=== PATIENT | male | born 1940 | race Caucasian/White ===

== ENCOUNTER 2016-08-18 02:11 | Inpatient (IN) | payer OTHER, MEDICARE ==
[2016-08-18] VITALS (8 sets, daily range): BP systolic 99–123; BP diastolic 53–66; PULSE 94–117; RESP 18–20; TEMP 96.4–98.5; O2SAT 95–98
[~2016-08-18] VITALS: Ht 170.2 cm; Wt 95.3 kg
[~2016-08-18 02:11] MED LIST: ALBU6.7H INH; ASPI81 PO; GLUCTAB; LISI-363 PO; SIMV5TAB32 PO
[2016-08-18] MEDS ORDERED: GUAI600T11 PO (02:36)
[2016-08-18] MEDS ORDERED: SYMB160A INH (02:36)
[2016-08-18] MEDS ORDERED: LISI2.5T3 PO (02:36)
[2016-08-18] MEDS ORDERED: IPRAAER INH (02:36)
[2016-08-18] MEDS ORDERED: SIMV5TAB3 PO (02:36)
[2016-08-18] MEDS ORDERED: ALBU6.7H INH (02:36)
[2016-08-18] MEDS ORDERED: ASPI81CH CHEW (02:36)
[2016-08-18] MEDS ORDERED: SODIUM CHLOR 0.9% 1000 ML INJ 1,000 ML IV ONE ×2 (02:59→04:00)
[2016-08-18] MEDS ORDERED: SODIUM CHLORIDE 0.9% FLUSH 10 ML FLUSH IVF PRN (03:00)
[2016-08-18 03:29] LABS: AUTOMATED NEUTROPHIL # 17.9 TH/MM3 (1.8-7.7); BASOPHIL # 0.1 TH/MM3 (0-0.2); BASOPHIL % 0.3 % (0.0-2.0); EOSINOPHIL % 0.2 % (0.0-4.0); HEMATOCRIT 34.9 % (39.0-51.0); LYMPH % 3.1 % (9.0-44.0); LYMPHOCYTE # 0.6 TH/MM3 (1.0-4.8); MEAN CELL VOLUME 89.2 FL (80.0-100.0); MEAN CORPUSCULAR HEMOGLOBIN 29.9 PG (27.0-34.0); MEAN CORPUSCULAR HGB CONC 33.5 % (32.0-36.0); MONO % 7.8 % (0.0-8.0); NEUT % 88.6 % (16.0-70.0); PLATELET COUNT 178 TH/MM3 (150-450); RED BLOOD COUNT 3.91 MIL/MM3 (4.50-5.90); RED CELL DISTRIBUTION WIDTH 14.4 % (11.6-17.2); WHITE BLOOD COUNT 20.3 TH/MM3 (4.0-11.0)
--- NOTE | 2016-08-18 03:33 | RADRPT ---
EXAM DATE/TIME: 08/18/2016 03:21 [facility] COMPARISON: CHEST SINGLE AP, February 23, 2011, 10:09. INDICATIONS : Shortness of breath for a few hours. MEDICAL HISTORY : Chronic obstructive pulmonary disease. SURGICAL HISTORY : None. ENCOUNTER: Initial ACUITY: 1 day PAIN SCORE: 0/10 LOCATION: Bilateral chest FINDINGS: There is evidence for prior median sternotomy. Extensive COPD is present no change. Vague parenchymal opacities present in left upper lobe medially not present previously. Heart and mediastinum are unre markable for technique. There are atherosclerotic calcifications of the aorta due to chronic atherosc lerotic disease. CONCLUSION: Vague parenchymal opacity left upper lobe not present previously represent slight infiltrate. Davy Potter MD on August 18, 2016 at 3:30 Board Certified Radiologist. This report was verified electronically.
[2016-08-18 03:36] LABS: HEMO FLAGS AUTO DIFF
--- NOTE | 2016-08-18 03:40 | RADRPT ---
EXAM DATE/TIME: 08/18/2016 03:26 [facility] COMPARISON: No previous studies available for comparison. INDICATIONS : Syncopal episode. RADIATION DOSE: 33.36 CTDIvol (mGy) MEDICAL HISTORY : Hypertension. Diabetes mellitus type 2. Cardiovascular disease SURGICAL HISTORY : None. ENCOUNTER: Initial ACUITY: 1 day PAIN SCALE: 0/10 LOCATION: cranial TECHNIQUE: Multiple contiguous axial images were obtained of the head. Using automated exposure control and adj ustment of the mA and/or kV according to patient size, radiation dose was kept as low as reasonably a chievable to obtain optimal diagnostic quality images. DICOM format image data is available electro nically for review and comparison. FINDINGS: There is no evidence for intracranial hemorrhage, mass effect, mass lesions, edema, or extra-axial fl uid collections. The visualized bony structures appear intact. The ventricles are normal size for t he patient's age. There are no signs of acute infarction for technique. CONCLUSION: Unremarkable study. Davy Potter MD on August 18, 2016 at 3:37 Board Certified Radiologist. This report was verified electronically.
[2016-08-18 03:41] LABS: APTT (PATIENT) 29.1 SEC (24.3-30.1)
[2016-08-18] MEDS ORDERED: cefTRIAXone INJ 1,000 MG in SODIUM CHLORIDE 0.9% INJ 100 ML IV ONE (04:00)
[2016-08-18] MEDS ORDERED: AZITHROMYCIN INJ 500 MG in SODIUM CHLOR 0.9% 250 ML INJ 250 ML IV ONE (04:00)
[2016-08-18 04:01] LABS: BICARBONATE 17.7 MEQ/L (21.0-32.0); MAGNESIUM 0.9 MG/DL (1.5-2.5); TOTAL BILIRUBIN ADULT 0.4 MG/DL (0.2-1.0)
[2016-08-18 04:03] LABS: CALCIUM-PROTEIN CORRECTED 6.7 MG/DL (8.5-10.1); POTASSIUM 2.7 MEQ/L (3.5-5.1)
[2016-08-18 04:20] LABS: BANDS 9 % (0-6); NEUTROPHIL # MANUAL DIFF 19.1 TH/MM3 (1.8-7.7); PLATELET ESTIMATE SMEAR NORMAL (NORMAL); PLATELET MORPHOLOGY NORMAL (NORMAL); POLYS (SEG NEUTROPHILS) 85 % (16-70); SCAN/DIFF FINAL DIFF MANUAL; WBC DIFF SAMPLE 100
[2016-08-18] MEDS ORDERED: POTASSIUM CHLORIDE 25 MEQ EFFERVESCENT TAB PO ONE ×2 (05:15→06:00)
[2016-08-18] MEDS ORDERED: POTASSIUM CHLOR 20 MEQ PREMIX 100 ML IV SCH ×2 (05:15→06:00)
--- NOTE | 2016-08-18 05:55 | PD ---
HPI Chief Complaint: Syncope/Near-Syncope Time Seen by Provider: 02:59 Travel History International Travel<30 days: No Contact w/Intl Traveler<30days: No Traveled to known affect area: No History of Present Illness HPI 75 year old male who presents to ER with c/o of syncope. As per patient, he reports having a bronchial infection this morning. Reports that symptoms improved over the day but by night time, he began to feel extremely weak. Reports that his son was going to bring him to the hospital and when he was going to the car - he had a syncopal episode. Reports that he was unconscious for a few seconds, denies any trauma to his head. Patient reports no fevers, reports chills. Patient reports nonproductive cough. Patient denies any chest pain, reports that he has been having some shortness of breath today. Patient with no abdominal pain, nausea or vomiting. Patient with no other complaints. PFSH Past Medical History High Cholesterol: Yes COPD: Yes Diabetes: Yes Patient Takes Glucophage: No Hypertension: Yes Immunizations Current: Yes Myocardial Infarction: Yes Past Surgical History Coronary Artery Bypass Graft: Yes Genitourinary Surgery: Yes (vasectomy) Tonsillectomy: Yes Other Surgery: Yes (VASECTOMY) Social History Alcohol Use: Yes (2 GLASS WINE/DAILY) Tobacco Use: No (QUIT 6 YEARS AGO) Substance Use: Yes (OCC MARIJUANA; STATES NOT LATELY) Allergies-Medications (Allergen,Severity, Reaction): Coded Allergies: No Known Allergies (Unverified , 08/18/16) Reported Meds & Prescriptions Reported Meds & Active Scripts Active Reported Simvastatin 5 Mg Tab 5 Mg PO DAILY Mucus Relief ER (Guaifenesin) 600 Mg Tab 1,200 Mg PO BID PRN Lisinopril 2.5 Mg Tab 2.5 Mg PO DAILY Aspirin 81 Mg Chew 81 Mg CHEW ONCE Combivent Respimat Inh (Ipratropium-Albuterol Inh) 20-100 Residential/Act Aero 1 Puff INH QID Symbicort Inh (Budesonide/Formoterol Fumarate) 160-4.5 Mcg/Act Aero 2 Puff INH Q12HR Proventil Hfa 6.7 GM Inh (Albuterol Sulfate) 90 Mcg/Act Aer 2 Puff INH Q4-6H PRN Review of Systems General / Constitutional: No: Fever Eyes: No: Visual changes HENT: No: Headaches Cardiovascular: No: Chest Pain or Discomfort Respiratory: Positive: Cough, Shortness of Breath Gastrointestinal: No: Abdominal Pain Genitourinary: No: Dysuria Musculoskeletal: No: Pain Skin: No Rash Neurologic: Positive: Syncope, No: Weakness Psychiatric: No: Depression Endocrine: No: Polydipsia Hematologic/Lymphatic: No: Easy Bruising Physical Exam Narrative GENERAL: Mild distress SKIN: Focused skin assessment warm/dry. HEAD: Atraumatic. Normocephalic. EYES: Pupils equal and round. No scleral icterus. No injection or drainage. ENT: No nasal bleeding or discharge. Mucous membranes pink and moist. NECK: Trachea midline. No JVD. CARDIOVASCULAR: Tachycardic. No murmur appreciated. RESPIRATORY: No accessory muscle use. Clear to auscultation. Breath sounds equal bilaterally. GASTROINTESTINAL: Abdomen soft, non-tender, nondistended. Hepatic and splenic margins not palpable. MUSCULOSKELETAL: No obvious deformities. No clubbing. No cyanosis. No edema. NEUROLOGICAL: Awake and alert. No obvious cranial nerve deficits. Motor grossly within normal limits. Normal speech. PSYCHIATRIC: Appropriate mood and affect; insight and judgment normal. Data Data Last Documented VS Vital Signs Date Time Temp Pulse Resp B/P Pulse Ox O2 Delivery O2 Flow Rate FiO2 08/18/16 02:49 99 Nasal Cannula 2 08/18/16 02:23 98.5 117 20 99/53 Orders Electrocardiogram (08/18/16 ) Complete Blood Count With Diff (08/18/16 02:59) Comprehensive Metabolic Panel (08/18/16 02:59) Magnesium (Mg) (08/18/16 02:59) Ckmb (Isoenzyme) Profile (08/18/16 02:59) Troponin I (08/18/16 02:59) Act Partial Throm Time (Ptt) (08/18/16 02:59) Prothrombin Time / Inr (Pt) (08/18/16 02:59) Urinalysis - C+S If Indicated (08/18/16 02:59) Chest, Single Ap (08/18/16 02:59) Ct Brain W/O Iv Contrast(Rout) (08/18/16 02:59) Ecg Monitoring (08/18/16 02:59) Iv Access Insert/Monitor (08/18/16 02:59) Oximetry (08/18/16 02:59) Sodium Chloride 0.9% Flush (Ns Flush) (08/18/16 03:00) Sodium Chlor 0.9% 1000 Ml Inj (Ns 1000 M (08/18/16 02:59) Lactic Acid Sepsis Protocol (08/18/16 02:59) Blood Culture (08/18/16 02:59) Ceftriaxone Inj (Rocephin Inj) (08/18/16 04:00) Azithromycin Inj (Zithromax Inj) (08/18/16 04:00) Sodium Chlor 0.9% 1000 Ml Inj (Ns 1000 M (08/18/16 04:00) Potassium Chlor 20 Meq Premix (Kcl 20 Me (08/18/16 05:15) Potassium Chloride Eff (K-Lyte Cl Eff) (08/18/16 05:15) Admit Order (Ed Use Only) (08/18/16 05:51) Admit To Inpatient (08/18/16 ) Vital Signs (Adult) Q4H (08/18/16 05:51) Activity Oob With Assistance (08/18/16 05:51) Data Governance Consultant / Telemetry .CONTINUOUS (08/18/16 05:51) Diet Heart Healthy (08/18/16 Breakfast) Sodium Chloride 0.9% Flush (Ns Flush) (08/18/16 06:00) Sodium Chloride 0.9% Flush (Ns Flush) (08/18/16 09:00) Comprehensive Metabolic Panel (08/19/16 06:00) Complete Blood Count With Diff (08/19/16 06:00) Pt Request For Service (08/18/16 05:51) Case Management Consult (08/18/16 05:51) Naloxone Inj (Narcan Inj) (08/18/16 06:00) Inpatient Certification (08/18/16 ) Labs Laboratory Tests Test 08/18/16 03:05 White Blood Count 20.3 TH/MM3 Red Blood Count 3.91 MIL/MM3 Hemoglobin 11.7 GM/DL Hematocrit 34.9 % Mean Corpuscular Volume 89.2 FL Mean Corpuscular Hemoglobin 29.9 PG Mean Corpuscular Hemoglobin 33.5 % Concent Red Cell Distribution Width 14.4 % Platelet Count 178 TH/MM3 Mean Platelet Volume 8.6 FL Neutrophils (%) (Auto) 88.6 % Lymphocytes (%) (Auto) 3.1 % Monocytes (%) (Auto) 7.8 % Eosinophils (%) (Auto) 0.2 % Basophils (%) (Auto) 0.3 % Neutrophils # (Auto) 17.9 TH/MM3 Lymphocytes # (Auto) 0.6 TH/MM3 Monocytes # (Auto) 1.6 TH/MM3 Eosinophils # (Auto) 0.0 TH/MM3 Basophils # (Auto) 0.1 TH/MM3 CBC Comment AUTO DIFF Differential Total Cells 100 Counted Neutrophils % (Manual) 85 % Band Neutrophils % 9 % Lymphocytes % 1 % Monocytes % 5 % Neutrophils # (Manual) 19.1 TH/MM3 Differential Comment FINAL DIFF MANUAL Platelet Estimate NORMAL Platelet Morphology Comment NORMAL Red Cell Morphology Comment NORMAL Prothrombin Time 11.0 SEC Prothromb Time International 1.0 RATIO Ratio Activated Partial 29.1 SEC Thromboplast Time Sodium Level 145 MEQ/L Potassium Level 2.7 MEQ/L Chloride Level 119 MEQ/L Carbon Dioxide Level 17.7 MEQ/L Anion Gap 8 MEQ/L Blood Urea Nitrogen 16 MG/DL Creatinine 0.85 MG/DL Estimat Glomerular Filtration 88 ML/MIN Rate Random Glucose 68 MG/DL Lactic Acid Level 1.6 mmol/L Calcium Level 5.2 MG/DL Protein Corrected Calcium 6.7 MG/DL Magnesium Level 0.9 MG/DL Total Bilirubin 0.4 MG/DL Aspartate Amino Transf 6 U/L (AST/SGOT) Alanine Aminotransferase 8 U/L (ALT/SGPT) Alkaline Phosphatase 40 U/L Total Creatine Kinase 50 U/L Troponin I 0.02 NG/ML Total Protein 3.7 GM/DL Albumin 1.9 GM/DL MDM Medical Decision Making Medical Screen Exam Complete: Yes Emergency Medical Condition: Yes Interpretation(s) EKG at 0244: Sinus tachycardia at 110bpm, qt/qtc: 302/367, incomplete rbbb Patient with no chest pain at this time Vital Signs Date Time Temp Pulse Resp B/P Pulse Ox O2 Delivery O2 Flow Rate FiO2 08/18/16 02:49 99 Nasal Cannula 2 08/18/16 02:23 98.5 117 20 99/53 96 Laboratory Tests Test 08/18/16 03:05 White Blood Count 20.3 TH/MM3 (4.0-11.0) Red Blood Count 3.91 MIL/MM3 (4.50-5.90) Hemoglobin 11.7 GM/DL (13.0-17.0) Hematocrit 34.9 % (39.0-51.0) Mean Corpuscular Volume 89.2 FL (80.0-100.0) Mean Corpuscular Hemoglobin 29.9 PG (27.0-34.0) Mean Corpuscular Hemoglobin 33.5 % Concent (32.0-36.0) Red Cell Distribution Width 14.4 % (11.6-17.2) Platelet Count 178 TH/MM3 (150-450) Mean Platelet Volume 8.6 FL (7.0-11.0) Neutrophils (%) (Auto) 88.6 % (16.0-70.0) Lymphocytes (%) (Auto) 3.1 % (9.0-44.0) Monocytes (%) (Auto) 7.8 % (0.0-8.0) Eosinophils (%) (Auto) 0.2 % (0.0-4.0) Basophils (%) (Auto) 0.3 % (0.0-2.0) Neutrophils # (Auto) 17.9 TH/MM3 (1.8-7.7) Lymphocytes # (Auto) 0.6 TH/MM3 (1.0-4.8) Monocytes # (Auto) 1.6 TH/MM3 (0-0.9) Eosinophils # (Auto) 0.0 TH/MM3 (0-0.4) Basophils # (Auto) 0.1 TH/MM3 (0-0.2) CBC Comment AUTO DIFF Differential Total Cells 100 Counted Neutrophils % (Manual) 85 % (16-70) Band Neutrophils % 9 % (0-6) Lymphocytes % 1 % (9-44) Monocytes % 5 % (0-8) Neutrophils # (Manual) 19.1 TH/MM3 (1.8-7.7) Differential Comment FINAL DIFF MANUAL Platelet Estimate NORMAL (NORMAL) Platelet Morphology Comment NORMAL (NORMAL) Red Cell Morphology Comment NORMAL (NORMAL) Prothrombin Time 11.0 SEC (9.8-11.6) Prothromb Time International 1.0 RATIO Ratio Activated Partial 29.1 SEC Thromboplast Time (24.3-30.1) Sodium Level 145 MEQ/L (136-145) Potassium Level 2.7 MEQ/L (3.5-5.1) Chloride Level 119 MEQ/L (98-107) Carbon Dioxide Level 17.7 MEQ/L (21.0-32.0) Anion Gap 8 MEQ/L (5-15) Blood Urea Nitrogen 16 MG/DL (7-18) Creatinine 0.85 MG/DL (0.60-1.30) Estimat Glomerular Filtration 88 ML/MIN (>89) Rate Random Glucose 68 MG/DL (74-106) Lactic Acid Level 1.6 mmol/L (0.4-2.0) Calcium Level 5.2 MG/DL (8.5-10.1) Protein Corrected Calcium 6.7 MG/DL (8.5-10.1) Magnesium Level 0.9 MG/DL (1.5-2.5) Total Bilirubin 0.4 MG/DL (0.2-1.0) Aspartate Amino Transf 6 U/L (15-37) (AST/SGOT) Alanine Aminotransferase 8 U/L (12-78) (ALT/SGPT) Alkaline Phosphatase 40 U/L (45-117) Total Creatine Kinase 50 U/L (39-308) Troponin I 0.02 NG/ML (0.02-0.05) Total Protein 3.7 GM/DL (6.4-8.2) Albumin 1.9 GM/DL (3.4-5.0) Last Impressions Head CT 08/18/16258 Signed Impressions: Service Date/Time: Thursday, August 18, 2016 03:26 - CONCLUSION: Unremarkable study. Davy Potter MD Chest X-Ray 08/18/16258 Signed Impressions: Service Date/Time: Thursday, August 18, 2016 03:21 - CONCLUSION: Vague parenchymal opacity left upper lobe not present previously represent slight infiltrate. Davy Potter MD Differential Diagnosis Symptoms could be due to intracranial hemorrhage, electrolyte abnormality, ACS, arrhythmia, pneumonia, infection Narrative Course Patient was placed on a residential monitor upon arrival to emergency room. Laboratory including CT of head ordered. Last Impressions Head CT 08/18/16258 Signed Impressions: Service Date/Time: Thursday, August 18, 2016 03:26 - CONCLUSION: Unremarkable study. Davy Potter MD Chest X-Ray 08/18/16258 Signed Impressions: Service Date/Time: Thursday, August 18, 2016 03:21 - CONCLUSION: Vague parenchymal opacity left upper lobe not present previously represent slight infiltrate. Davy Potter MD CT of the head was unremarkable, x-ray of the chest shows left upper lobe opacity. CBC & BMP Diagram 08/18/16 03:05 Patient had a 20,000 white count, lactic acid was 1.6. Patient was initially hypotensive upon arrival to emergency room, patient did respond to IV fluid bolus. Patient has been pancultured. Rocephin and azithromycin ordered. Patient with sepsis due to pneumonia. Case reviewed with Dr. Michael who accepts pt to service Physician Communication Physician Communication case reviewed with Dr. michael who accepts pt to service Diagnosis Primary Impression: Sepsis Qualified Code: A41.9 - Sepsis, due to unspecified organism Additional Impression: Pneumonia Qualified Code: J18.1 - Pneumonia of left upper lobe due to infectious organism Admitting Information Admitting Physician Requests: Admit Patient Instructions: General Instructions Melissa Smiht DO Aug 18, 2016 05:55
[2016-08-18] MEDS ORDERED: NALOXONE HCL 0.4 MG/ML AMP IV PRN (06:00)
[2016-08-18] MEDS ORDERED: SODIUM CHLORIDE 0.9% FLUSH 10 ML FLUSH IV FLUSH PRN (06:00)
--- NOTE | 2016-08-18 06:14 | HHI.HP ---
[facility] Non-Staff Admission Diagnosis Sepsis Diagnoses: Travel History International Travel<30 Days: No Contact w/Intl Traveler <30 Da: No Traveled to Known Affected Are: No Sepsis Criteria SIRS Criteria (2 or more): Heart rate over 90 Severe Sepsis (+one): Hypotension, Hypoperfusion History of Present Illness short of breath pretty sudden today coughing no fever 99.5 called son at 1130p.m. short of breath, panic son came o2 was 90-92 HR was 120-130 at resting earlier during day as well 120-130, o2 was low too had cabg before with similar problems tried walking out to car with son could not make it to car and syncopised thus called ems no swelling for past one week, by end of day, he is very fatigued and short of breath on exertion ef in 2011 was 30% denies chest pains/ palpitations/focal weakness/dizziness. denies any nausea/vomiting/diarrhea/urinary burning or pain on urination. Denies any hematemesis/hematochezia/melena/hematuria. Review of Systems Except as stated in HPI: all other systems reviewed are Neg Past Family Social History Past Medical History htn dm- diet controlled now, was on meds before but now off cabg- 2010 copd on home oxygen 2L 12hrs a day including bed time Past Surgical History cabg vasectomy tonsillectomy Allergies: Coded Allergies: No Known Allergies (Unverified , 08/18/16) Family History father - mi at 60 mother- with copd Social History quit smoking 2006 drink occasional no drugs Physical Exam Vital Signs Vital Signs Date Time Temp Pulse Resp B/P Pulse Ox O2 Delivery O2 Flow Rate FiO2 08/18/16 02:49 99 Nasal Cannula 2 08/18/16 02:23 98.5 117 20 99/53 96 Physical Exam GENERAL: This is a well-nourished, well-developed patient, in no apparent distress. SKIN: No rashes, ecchymoses or lesions. Cool and dry. HEAD: Atraumatic. Normocephalic. No temporal or scalp tenderness. EYES: No scleral icterus. No injection or drainage. ENT: Nose without bleeding, purulent drainage or septal hematoma. Airway patent. NECK: Trachea midline. No JVD CARDIOVASCULAR: Regular rate and rhythm without murmurs, gallops, or rubs. RESPIRATORY: Clear to auscultation. Breath sounds equal bilaterally. GASTROINTESTINAL: Abdomen soft, non-tender, nondistended. No guarding. MUSCULOSKELETAL: Extremities without clubbing, cyanosis, or edema. No calf tenderness. NEUROLOGICAL: awake, alert, oriented. Motor and sensory grossly within normal limits. Normal speech. Laboratory Laboratory Tests Test 08/18/16 03:05 White Blood Count 20.3 Red Blood Count 3.91 Hemoglobin 11.7 Hematocrit 34.9 Mean Corpuscular Volume 89.2 Mean Corpuscular Hemoglobin 29.9 Mean Corpuscular Hemoglobin 33.5 Concent Red Cell Distribution Width 14.4 Platelet Count 178 Mean Platelet Volume 8.6 Neutrophils (%) (Auto) 88.6 Lymphocytes (%) (Auto) 3.1 Monocytes (%) (Auto) 7.8 Eosinophils (%) (Auto) 0.2 Basophils (%) (Auto) 0.3 Neutrophils # (Auto) 17.9 Lymphocytes # (Auto) 0.6 Monocytes # (Auto) 1.6 Eosinophils # (Auto) 0.0 Basophils # (Auto) 0.1 CBC Comment AUTO DIFF Differential Total Cells 100 Counted Neutrophils % (Manual) 85 Band Neutrophils % 9 Lymphocytes % 1 Monocytes % 5 Neutrophils # (Manual) 19.1 Differential Comment FINAL DIFF MANUAL Platelet Estimate NORMAL Platelet Morphology Comment NORMAL Red Cell Morphology Comment NORMAL Prothrombin Time 11.0 Prothromb Time International 1.0 Ratio Activated Partial 29.1 Thromboplast Time Sodium Level 145 Potassium Level 2.7 Chloride Level 119 Carbon Dioxide Level 17.7 Anion Gap 8 Blood Urea Nitrogen 16 Creatinine 0.85 Estimat Glomerular Filtration 88 Rate Random Glucose 68 Lactic Acid Level 1.6 Calcium Level 5.2 Protein Corrected Calcium 6.7 Magnesium Level 0.9 Total Bilirubin 0.4 Aspartate Amino Transf 6 (AST/SGOT) Alanine Aminotransferase 8 (ALT/SGPT) Alkaline Phosphatase 40 Total Creatine Kinase 50 Troponin I 0.02 Total Protein 3.7 Albumin 1.9 Date/Time Procedure Status Source Growth 08/18/16 03:10 Aerobic Blood Culture Received Blood Peripheral Pending 08/18/16 03:10 Anaerobic Blood Culture Received Blood Peripheral Pending Result Diagram: 08/18/16 0305 08/18/165 Imaging Last [address] 08/18/16258 Signed Impressions: Service Date/Time: Thursday, August 18, 2016 03:26 - CONCLUSION: Unremarkable study. Davy Potter MD Chest X-Ray 08/18/16258 Signed Impressions: Service Date/Time: Thursday, August 18, 2016 03:21 - CONCLUSION: Vague parenchymal opacity left upper lobe not present previously represent slight infiltrate. Davy Potter MD Assessment and Plan Assessment and Plan Impression: Sepsissource pneumonia Pneumonia COPD exacerbation Severe hypokalemia Severe hypomagnesemia Hypocalcemia Generalized weaknesslikely due to electrolyte derangements, compounded by sepsis htn dm- diet controlled now, was on meds before but now off cabg- 2010 copd on home oxygen 2L 12hrs a day including bed time Plan: Patient was given Rocephin and azithromycin in ER. Watch for fluid overload. Was switched to levofloxacin 750 mg IV every 24 hours. Follow-up culture results. Nebs when necessary. Oxygen supplementation. Replace KCl 50 mEq by mouth. KCl 40 mEq IV. Magnesium 2 g IV. Calcium gluconate 2 g IV. Will start on oral supplementation of magnesium and calcium. For repeat labs in a.m. at 9, and every 6 hours. DVT prophylaxiswith Lovenox. GI prophylaxis on pantoprazole. Discussed Condition With patient, son at bedside, ER MD, nursing staff Physician Certification 2 Midnight Certification Type: Admission for Inpatient Services Order for Inpatient Services The services are ordered in accordance with Medicare regulations or non- Medicare payer requirements, as applicable. In the case of services not specified as inpatient-only, they are appropriately provided as inpatient services in accordance with the 2-midnight benchmark. Estimated LOS (days): 4 days is the estimated time the patient will need to remain in the hospital, assuming treatment plan goals are met and no additional complications. Post-Hospital Plan: Ortega Mcguire MD Aug 18, 2016 06:14
[2016-08-18] MEDS: MAGNESIUM SULFATE 1 GM PREMIX 100 ML IV SCH ×2 (06:45→15:48)
[2016-08-18] MEDS ORDERED: RESP: ALBUTEROL 2.5 MG/IPRATROPIUM 0.5 MG NEB (PRN) NEB (07:45)
[2016-08-18] MEDS: RESP: ALBUTEROL 2.5 MG/IPRATROPIUM 0.5 MG NEB (SCH) NEB ×3 (08:13→20:11)
--- NOTE | 2016-08-18 08:27 | EKG ---
Date Performed: 08/18/2016 Time Performed: 06:04:31 PTAGE: 75 years EKG: Sinus rhythm WITH OCCASIONAL SUPRAVENTRICULAR PREMATURE COMPLEXES LOW QRS VOLTAGE IN PRECORDIAL LEADS INCOMPLETE RIGHT BUNDLE BRANCH BLOCK ABNORMAL ECG NO SIGNIFICANT CHANGE FROM PRIOR ELECTROCARDIOGRAM. PREVIOUS TRACING : 08/18/2016 02.44 DOCTOR: Jacoby Naranjo Interpretating Date/Time 08/18/2016 08:26:38
--- NOTE | 2016-08-18 08:31 | EKG ---
Date Performed: 08/18/2016 Time Performed: 02:44:30 PTAGE: 75 years EKG: SINUS TACHYCARDIA POSSIBLE RIGHT VENTRICULAR CONDUCTION DELAY SEPTAL MYOCARDIAL INFARCTION Probably no significant change from prior electrocardiogram although prior electrocardiogram does hav e artifact. PREVIOUS TRACING : 02/21/2011 10.54 DOCTOR: Jacoby Naranjo Interpretating Date/Time 08/18/2016 08:30:08
[2016-08-18] MEDS ORDERED: GLUCAGON 1 MG/ML VIAL OTHER PRN (08:45)
[2016-08-18] MEDS ORDERED: ASPIRIN 81 MG CHEW TAB CHEW SCH (08:45)
[2016-08-18] MEDS ORDERED: DEXTROSE 50% IN WATER 50 ML VIAL(D50) IV PRN (08:45)
--- NOTE | 2016-08-18 08:45 | HHI.PR ---
Subjective Remarks with some productive cough of whitish sputum. no fever this morning. has some wheezing. Objective Vitals Vital Signs Date Time Temp Pulse Resp B/P Pulse Ox O2 Delivery O2 Flow Rate FiO2 08/18/16 08:15 95 Nasal Cannula 2.00 08/18/16 02:49 99 Nasal Cannula 2 08/18/16 02:23 98.5 117 20 99/53 96 Result Diagram: 08/18/16 0305 08/18/16 0305 Imaging Last Impressions Head CT 08/18/16258 Signed Impressions: Service Date/Time: Thursday, August 18, 2016 03:26 - CONCLUSION: Unremarkable study. Davy Potter MD Chest X-Ray 08/18/16258 Signed Impressions: Service Date/Time: Thursday, August 18, 2016 03:21 - CONCLUSION: Vague parenchymal opacity left upper lobe not present previously represent slight infiltrate. Davy Potter MD Objective Remarks GENERAL: This is a well-nourished, well-developed patient, in no apparent distress. CARDIOVASCULAR: Regular rate and regular rhythm without murmurs, gallops, or rubs. RESPIRATORY: mild bilateral wheezing GASTROINTESTINAL: Abdomen soft, non-tender, nondistended. Normal, active bowel sounds MUSCULOSKELETAL: Extremities without clubbing, cyanosis, or edema. NEURO: Alert & Oriented x4 to person, place, time, situation. Moves all ext x4 Procedures none Medications and IVs Current Medications Sodium Chloride 2 ml 2 ml UNSCH PRN IVF FLUSH AFTER USING IV ACCESS Last administered on 08/18/16 03:02; Start 08/18/16 at 03:00; Stop 08/18/16 at 05:58 ; Status DC Sodium Chloride 1,000 ml @ 1,000 mls/hr Q1H ONCE IV Last administered on 03:02; Start 08/18/16 at 02:59; Stop 08/18/16 at 03:58; Status DC Ceftriaxone Sodium 1000 mg/ Sodium Chloride 100 ml @ 200 mls/hr ONCE ONCE IV Last administered on 08/18/16 04:00; Start 08/18/16 at 04:00; Stop 08/18/16 at 04:29; Status DC Azithromycin 500 mg/Sodium Chloride 250 ml @ 250 mls/hr ONCE ONCE IV Last administered on 08/18/16 06:16; Start 08/18/16 at 04:00; Stop 08/18/16 at 04:59 ; Status DC Sodium Chloride 1,000 ml @ 999 mls/hr BOLUS ONCE IV Last administered on 08/18 04:00; Start 08/18/16 at 04:00; Stop 08/18/16 at 05:00; Status DC Potassium Chloride (KCl 20 Meq Premix Inj) 100 ml @ 50 mls/hr Q2H IV ; Start at 05:15; Stop 08/18/16 at 09:14 Potassium Bicarb/ Potassium Chloride (K-Lyte Cl Eff) 25 meq ONCE ONCE PO Last administered on 08/18/16 06:45; Start 08/18/16 at 05:15; Stop 08/18/16 at 05:16; Status DC Sodium Chloride (NS Flush) 2 ml UNSCH PRN IV FLUSH FLUSH AFTER USING IV ACCESS ; Start 08/18/16 at 06:00 Sodium Chloride (NS Flush) 2 ml BID IV FLUSH ; Start 08/18/16 at 09:00 Naloxone HCl (Narcan Inj) 0.4 mg UNSCH PRN IV SEE LABEL COMMENTS; Start at 06:00 Potassium Bicarb/ Potassium Chloride 50 meq 50 meq ONCE ONCE PO ; Start at 06:00; Stop 08/18/16 at 06:02; Status DC Potassium Chloride 100 ml @ 50 mls/hr Q2H IV Last administered on 08/18/16 08 :19; Start 08/18/16 at 06:00; Stop 08/18/16 at 09:59 Magnesium Sulfate/ Dextrose 100 ml @ 100 mls/hr Q1H IV Last administered on 06:45; Start 08/18/16 at 06:00; Stop 08/18/16 at 07:59; Status DC Levofloxacin/ Dextrose (Levaquin 750 Mg Premix Inj) 150 ml @ 100 mls/hr Q24H IV ; Start 08/18/16 at 09:00 Albuterol/ Ipratropium (Duoneb Neb) 1 ampule Q6HR NEB NEB Last administered on 08/18/16 08:13; Start 08/18/16 at 10:00 Albuterol/ Ipratropium (Duoneb Neb) 1 ampule Q2HR NEB PRN NEB wheezing; Start 08/18/16 at 07:45 Magnesium Oxide (Mag-Ox) 400 mg Q12HR PO ; Start 08/18/16 at 09:00 Calcium Carbonate (Oscal) 500 mg Q12HR PO ; Start 08/18/16 at 09:00 Enoxaparin Sodium (Lovenox Inj) 40 mg Q24H SQ ; Start 08/18/16 at 09:00 Pantoprazole Sodium (Protonix) 40 mg DAILY PO ; Start 08/18/16 at 09:00 A/P Assessment and Plan A/P Sepsissource pneumonia continue with Levaquin- follow the blood cultures. COPD exacerbation continue neb treatment and antibiotic- start Iv steroids- keep on oxygen to keep O2 sat > 90% patient is on home oxygen. hypokalemia / hypomagnesemia/Hypocalcemia replaced- will repeat the levels today. Generalized weaknesslikely due to electrolyte derangements, compounded by sepsis consult PT Hypertension; resume lisinopril diabetes mellitus- diet controlled now- accu-check with SSI cabg- 2010- resume aspirin and statin DVT prophylaxis with Lovenox Edin Ferrer MD Aug 18, 2016 08:45
[2016-08-18] MEDS ORDERED: PILL SPLITTER OTHER PRN (09:15)
[2016-08-18] MEDS: PANTOPRAZOLE SOD 40 MG DELAYED RELEASE TAB PO SCH (09:53)
[2016-08-18] MEDS: ENOXAPARIN SODIUM 40 MG/0.4 ML SYRINGE SQ SCH (09:53)
[2016-08-18] MEDS: CALCIUM CARBONATE 1.25 GM (CA 500 MG) TAB PO SCH ×2 (09:53→21:44)
[2016-08-18] MEDS: MAGNESIUM OXIDE 400 MG TAB PO SCH ×2 (09:53→21:44)
[2016-08-18] MEDS: methylPREDNISolone SOD SUCC 125 MG/2 ML VIAL IV PUSH SCH ×3 (09:54→21:44)
[2016-08-18] MEDS: SODIUM CHLORIDE 0.9% FLUSH 10 ML FLUSH IV FLUSH SCH ×2 (09:54→21:00)
[2016-08-18] MEDS: PRAVASTATIN SOD 10 MG TAB PO SCH (10:02)
[2016-08-18] MEDS: LISINOPRIL 5 MG TAB PO SCH (10:02)
[2016-08-18] MEDS: INSULIN ASPART SUPPLEMENTAL SCALE SQ SCH ×3 (11:00→21:51)
[2016-08-18] MEDS: LEVOFLOXACIN 750 MG PREMIX INJ 150 ML IV SCH (12:18)
--- NOTE | 2016-08-18 14:36 | ECHRPT ---
Indication: SOB CONCLUSIONS Normal left ventricular size and wall thickness. The left ventricular systolic function is normal wi th an estimated ejection fraction in the range of 60-65%. Left ventricular diastolic function parameters a re normal. The right ventricle is mildly dilated. The right atrial size is mildly dilated. Mild thickening of the mitral valve leaflets. [id number] mitral valve regurgitation. Mild thickening of the tricuspid valve leaflets. There is mild to moderate tricuspid valve regurgitation. There is estimated mild pulmonary hypertension present (48 mmHg). BP: 99 / 53 HR: 117 Rhythm: Other MEASUREMENTS (Male / Female) Normal Values Technical Quality:Technically difficult study 2D ECHO LV Diastolic Diameter PLAX 3.9 cm 4.2 - 5.9 / 3.9 - 5.3 cm IVS Diastolic Thickness 0.9 cm 0.6 - 1.0 / 0.6 - 0.9 cm LVPW Diastolic Thickness 0.7 cm 0.6 - 1.0 / 0.6 - 0.9 cm LV Relative Wall Thickness 0.4 RV Internal Dim ED PLAX 2.3 cm LA Systolic Diameter LX 3.1 cm 3.0 - 4.0 / 2.7 - 3.8 cm DOPPLER Mitral E Point Velocity 95.8 cm/s Mitral A Point Velocity 66.6 cm/s Mitral E to A Ratio 1.4 TR Peak Velocity 331.0 cm/s TR Peak Gradient 43.8 mmHg FINDINGS LEFT VENTRICLE Normal left ventricular size and wall thickness. The left ventricular systolic function is normal wi th an estimated ejection fraction in the range of 60-65%. Left ventricular diastolic function parameters a re normal. RIGHT VENTRICLE The right ventricle is mildly dilated. LEFT ATRIUM The left atrial size is normal. RIGHT ATRIUM The right atrial size is mildly dilated. ATRIAL SEPTUM Normal atrial septal thickness without atrial level shunting by limited color doppler interrogation. AORTA The aortic root and proximal ascending aorta are normal in size on limited imaging. MITRAL VALVE Mild thickening of the mitral valve leaflets. [id number] mitral valve regurgitation. AORTIC VALVE Trileaflet aortic valve. No aortic valve stenosis or regurgitation. TRICUSPID VALVE Mild thickening of the tricuspid valve leaflets. There is mild to moderate tricuspid valve regurgitation. There is estimated mild pulmonary hypertension present (48 mmHg). PULMONARY VALVE The pulmonary valve is not well visualized. VESSELS The inferior vena cava is normal in size. PERICARDIUM No pericardial effusion. Anil Steele MD (Electronically Signed) Final Date:18 August 2016 14:35
[2016-08-18 14:51] LABS: BICARBONATE 25.9 MEQ/L (21.0-32.0); MAGNESIUM 2.2 MG/DL (1.5-2.5)
[2016-08-18] MEDS ORDERED: MAGNESIUM SULFATE 1 GM PREMIX 100 ML ONE (15:37)
--- NOTE | 2016-08-18 17:52 | EKG ---
Date Performed: 08/18/2016 Time Performed: 17:00:54 PTAGE: 75 years EKG: SINUS TACHYCARDIA POSSIBLE RIGHT VENTRICULAR CONDUCTION DELAY Possible ANTEROSEPTAL MYOCARD IAL INFARCTION , OF INDETERMINATE AGE ABNORMAL ECG NO SIGNIFICANT CHANGE FROM PRIOR ELECTROCARDIOGRAM . PREVIOUS TRACING : 08/18/2016 06.04 DOCTOR: Jacoby Naranjo Interpretating Date/Time 08/18/2016 17:51:09
[2016-08-19] VITALS (9 sets, daily range): BP systolic 107–144; BP diastolic 54–71; PULSE 95–114; RESP 17–20; TEMP 96.7–98; O2SAT 95–100
[2016-08-19 00:21] LABS: BLOOD, URINE NEG (NEG); GLUCOSE,URINE 300 mg/dL (NEG); KETONE, URINE NEG (NEG); MUCUS URINE FEW /lpf (OCC); NITRITE,URINE NEG (NEG); URINE COLOR LIGHT-YELLOW (YELLW/STRAW)
[2016-08-19 00:26] LABS: COMMENT (UR) CULT NOT INDICATED; CULTURE IF INDICATED CULT NOT INDICATED
[2016-08-19 00:50] LABS: CREATINE KINASE 151 U/L (39-308)
[2016-08-19 02:01] LABS: CREATINE KINASE 119 U/L (39-308)
[2016-08-19] MEDS: RESP: ALBUTEROL 2.5 MG/IPRATROPIUM 0.5 MG NEB (SCH) NEB ×4 (04:04→21:18)
[2016-08-19] MEDS: methylPREDNISolone SOD SUCC 125 MG/2 ML VIAL IV PUSH SCH (06:07)
--- NOTE | 2016-08-19 06:59 | EKG ---
Date Performed: 08/18/2016 Time Performed: 21:04:00 PTAGE: 75 years EKG: SINUS TACHYCARDIA RIGHT bundle branch block ABNORMAL ECG NO SIGNIFICANT CHANGE FROM PRIOR E LECTROCARDIOGRAM. PREVIOUS TRACING : 08/18/2016 17.00 DOCTOR: Jacoby Naranjo Interpretating Date/Time 08/19/2016 06:58:16
[2016-08-19 07:17] LABS: AUTOMATED NEUTROPHIL # 17.7 TH/MM3 (1.8-7.7); HEMATOCRIT 34.2 % (39.0-51.0); HEMO FLAGS DIFF FINAL; LYMPHOCYTE # 0.4 TH/MM3 (1.0-4.8); MEAN CELL VOLUME 90.1 FL (80.0-100.0); MEAN CORPUSCULAR HGB CONC 33.3 % (32.0-36.0); MONO % 2.6 % (0.0-8.0); NEUT % 95.4 % (16.0-70.0); PLATELET COUNT 175 TH/MM3 (150-450); RED BLOOD COUNT 3.79 MIL/MM3 (4.50-5.90); RED CELL DISTRIBUTION WIDTH 14.8 % (11.6-17.2); WHITE BLOOD COUNT 18.6 TH/MM3 (4.0-11.0)
--- NOTE | 2016-08-19 07:43 | HHI.PR ---
Subjective Remarks f/u; pneumonia' on oxygen via [place]. still with some wheezing and cough. no fever. denies pain. Objective Vitals Vital Signs Date Time Temp Pulse Resp B/P Pulse Ox O2 Delivery O2 Flow Rate FiO2 08/19/16 04:05 97 Nasal Cannula 1.50 08/19/16 04:00 96.9 95 17 127/71 99 08/19/16 00:00 96.7 99 18 107/54 95 08/18/16 22:41 102 08/18/16 20:10 96 Nasal Cannula 1.50 08/18/16 20:00 96.4 108 20 123/62 95 08/18/16 16:00 97.9 94 18 115/66 96 08/18/16 12:00 96.6 100 18 115/62 98 08/18/16 08:15 95 Nasal Cannula 2.00 08/18/16 08:00 97.0 102 18 101/54 97 I/O 08/18/16 08/18/16 08/18/16 08/19/16 08/19/16 08/19/16 07:00 15:00 23:00 07:00 15:00 23:00 Intake Total 1080 ml 240 ml 720 ml Output Total 450 ml 400 ml Balance 1080 ml -210 ml 320 ml Intake Oral 1080 ml 240 ml 720 ml Output Urine Total 450 ml 400 ml # Voids 5 2 # Bowel Movements 1 Result Diagram: 08/19/16 0558 08/18/16 1339 Imaging Last Impressions Head CT 08/18/16258 Signed Impressions: Service Date/Time: Thursday, August 18, 2016 03:26 - CONCLUSION: Unremarkable study. Davy Potter MD Chest X-Ray 08/18/16258 Signed Impressions: Service Date/Time: Thursday, August 18, 2016 03:21 - CONCLUSION: Vague parenchymal opacity left upper lobe not present previously represent slight infiltrate. Davy Potter MD Objective Remarks GENERAL: in no acute distress. CARDIOVASCULAR: Regular rate and regular rhythm without murmurs, gallops, or rubs. RESPIRATORY: mild bilateral wheezing GASTROINTESTINAL: Abdomen soft, non-tender, nondistended. Normal, active bowel sounds MUSCULOSKELETAL: Extremities without clubbing, cyanosis, or edema. NEURO: Alert & Oriented x4 to person, place, time, situation. Moves all ext x4 Procedures none Medications and IVs Current Medications Sodium Chloride 2 ml 2 ml UNSCH PRN IVF FLUSH AFTER USING IV ACCESS Last administered on 08/18/16 03:02; Start 08/18/16 at 03:00; Stop 08/18/16 at 05:58 ; Status DC Sodium Chloride 1,000 ml @ 1,000 mls/hr Q1H ONCE IV Last administered on 03:02; Start 08/18/16 at 02:59; Stop 08/18/16 at 03:58; Status DC Ceftriaxone Sodium 1000 mg/ Sodium Chloride 100 ml @ 200 mls/hr ONCE ONCE IV Last administered on 08/18/16 04:00; Start 08/18/16 at 04:00; Stop 08/18/16 at 04:29; Status DC Azithromycin 500 mg/Sodium Chloride 250 ml @ 250 mls/hr ONCE ONCE IV Last administered on 08/18/16 06:16; Start 08/18/16 at 04:00; Stop 08/18/16 at 04:59 ; Status DC Sodium Chloride 1,000 ml @ 999 mls/hr BOLUS ONCE IV Last administered on 08/18 04:00; Start 08/18/16 at 04:00; Stop 08/18/16 at 05:00; Status DC Potassium Chloride (KCl 20 Meq Premix Inj) 100 ml @ 50 mls/hr Q2H IV ; Start at 05:15; Stop 08/18/16 at 09:14; Status DC Potassium Bicarb/ Potassium Chloride (K-Lyte Cl Eff) 25 meq ONCE ONCE PO Last administered on 08/18/16 06:45; Start 08/18/16 at 05:15; Stop 08/18/16 at 05:16; Status DC Sodium Chloride (NS Flush) 2 ml UNSCH PRN IV FLUSH FLUSH AFTER USING IV ACCESS ; Start 08/18/16 at 06:00 Sodium Chloride (NS Flush) 2 ml BID IV FLUSH Last administered on 08/18/16 09: 54; Start 08/18/16 at 09:00 Naloxone HCl (Narcan Inj) 0.4 mg UNSCH PRN IV SEE LABEL COMMENTS; Start at 06:00 Potassium Bicarb/ Potassium Chloride 50 meq 50 meq ONCE ONCE PO ; Start at 06:00; Stop 08/18/16 at 06:02; Status DC Potassium Chloride 100 ml @ 50 mls/hr Q2H IV Last administered on 08/18/16 08 :19; Start 08/18/16 at 06:00; Stop 08/18/16 at 09:59; Status DC Magnesium Sulfate/ Dextrose 100 ml @ 100 mls/hr Q1H IV Last administered on 15:48; Start 08/18/16 at 06:00; Stop 08/18/16 at 07:59; Status DC Levofloxacin/ Dextrose (Levaquin 750 Mg Premix Inj) 150 ml @ 100 mls/hr Q24H IV Last administered on 08/18/16 12:18; Start 08/18/16 at 09:00 Albuterol/ Ipratropium (Duoneb Neb) 1 ampule Q6HR NEB NEB Last administered on 08/19/16 07:28; Start 08/18/16 at 10:00 Albuterol/ Ipratropium (Duoneb Neb) 1 ampule Q2HR NEB PRN NEB wheezing; Start 08/18/16 at 07:45 Magnesium Oxide (Mag-Ox) 400 mg Q12HR PO Last administered on 08/18/16 21:44; Start 08/18/16 at 09:00 Calcium Carbonate (Oscal) 500 mg Q12HR PO Last administered on 08/18/16 21:44 ; Start 08/18/16 at 09:00 Enoxaparin Sodium (Lovenox Inj) 40 mg Q24H SQ Last administered on 08/18/16 09 :53; Start 08/18/16 at 09:00 Pantoprazole Sodium (Protonix) 40 mg DAILY PO Last administered on 08/18/16 09 :53; Start 08/18/16 at 09:00 Methylprednisolone Sodium Succinate (SoluMEDROL INJ) 60 mg Q8HR IV PUSH Last administered on 08/19/16 06:07; Start 08/18/16 at 09:15 Aspirin (Aspirin Chew) 81 mg ONCE CHEW ; Start 08/18/16 at 08:45; Stop 08/18/16 at 14:00; Status DC Lisinopril (Prinivil) 2.5 mg DAILY PO Last administered on 6/30/17at 10:02; Start 08/18/16 at 09:15 Pravastatin Sodium (Pravachol) 10 mg DAILY PO Last administered on 08/18/16t 10 :02; Start 08/18/16 at 09:15 Dextrose (D50w (Vial) Inj) 50 ml UNSCH PRN IV HYPOGLYCEMIA-SEE COMMENTS; Start 08/18/16 at 08:45 Glucagon (Glucagon Inj) 1 mg UNSCH PRN OTHER HYPOGLYCEMIA-SEE COMMENTS; Start 08/18/16 at 08:45 Insulin Aspart (NovoLOG SUPPLEMENTAL SCALE) 1 ACHS SLIDING SCALE SQ Last administered on 08/18/16t 21:51; Start 08/18/16 at 11:00 Miscellaneous 1 ea 1 ea UNSCH PRN OTHER SEE LABEL COMMENTS; Start 08/18/16 at 09:15 Magnesium Sulfate/ Dextrose (Magnesium Sulfate 1 Gm Premix) 100 ml @ As Directed STK-MED ONCE .ROUTE ; Start 08/18/16 at 15:37; Stop 08/18/16 at 15:38; Status DC A/P Assessment and Plan A/P Sepsissource pneumonia continue with Levaquin- follow the blood cultures. COPD exacerbation continue neb treatment and antibiotic- start to taper down IV steroids- keep on oxygen to keep O2 sat > 90% patient is on home oxygen. hypokalemia / hypomagnesemia/Hypocalcemia replaced- will monitor. Generalized weaknesslikely due to electrolyte derangements, compounded by sepsis consulted PT; recommended HHC. Hypertension; resumed lisinopril diabetes mellitus- diet controlled - accu-check with SSI CAD- s/p CABG- resumed aspirin and statin DVT prophylaxis with Lovenox Discharge Planning consulted case management for HHC. Edin Ferrer MD Aug 19, 2016 07:43
--- NOTE | 2016-08-19 07:44 | HHI.FF ---
Face to Face Verification Diagnosis: (1) Pneumonia Physical Therapy Order: Evaluate and Treat Home Health Nursing Order: Medical education Signs/symptoms of disease process Nursing assessment with vital signs I have seen patient Josué Jefferson on 08/19/16. My clinical findings support the need for the requested home health care services because: Patient has SOB I certify that my clinical findings support that this patient is homebound because: Hx COPD- exertion dyspnea/weakness Edin Ferrer MD Aug 19, 2016 07:44
[2016-08-19] MEDS: INSULIN ASPART SUPPLEMENTAL SCALE SQ SCH ×4 (07:55→20:34)
[2016-08-19 08:01] LABS: ALKALINE PHOSPHATASE 59 U/L (45-117); ALT (GPT) 14 U/L (12-78); ANION GAP 3 MEQ/L (5-15); AST (GOT) 12 U/L (15-37); BICARBONATE 28.9 MEQ/L (21.0-32.0); BLOOD UREA NITROGEN 23 MG/DL (7-18); CHLORIDE 109 MEQ/L (98-107); GLOMERULAR FILTRATION RATE 58 ML/MIN (>89); POTASSIUM 4.3 MEQ/L (3.5-5.1); SODIUM (NA) 141 MEQ/L (136-145); TOTAL BILIRUBIN ADULT 0.2 MG/DL (0.2-1.0)
[2016-08-19] MEDS: LEVOFLOXACIN 750 MG PREMIX INJ 150 ML IV SCH (09:29)
[2016-08-19] MEDS: ASPIRIN 81 MG CHEW TAB CHEW SCH (09:30)
[2016-08-19] MEDS: MAGNESIUM OXIDE 400 MG TAB PO SCH ×2 (09:30→20:31)
[2016-08-19] MEDS: LISINOPRIL 5 MG TAB PO SCH (09:30)
[2016-08-19] MEDS: PANTOPRAZOLE SOD 40 MG DELAYED RELEASE TAB PO SCH (09:30)
[2016-08-19] MEDS: SODIUM CHLORIDE 0.9% FLUSH 10 ML FLUSH IV FLUSH SCH ×2 (09:30→20:15)
[2016-08-19] MEDS: CALCIUM CARBONATE 1.25 GM (CA 500 MG) TAB PO SCH ×2 (09:30→20:31)
[2016-08-19] MEDS: ENOXAPARIN SODIUM 40 MG/0.4 ML SYRINGE SQ SCH (09:31)
[2016-08-19] MEDS: PRAVASTATIN SOD 10 MG TAB PO SCH (09:31)
[2016-08-19] MEDS: methylPREDNISolone SOD SUCC 40 MG/1 ML VIAL IV PUSH SCH ×2 (12:38→21:51)
[2016-08-20] VITALS (9 sets, daily range): BP systolic 102–147; BP diastolic 59–75; PULSE 99–115; RESP 18–20; TEMP 96.5–97.9; O2SAT 96–98
[2016-08-20] MEDS: RESP: ALBUTEROL 2.5 MG/IPRATROPIUM 0.5 MG NEB (SCH) NEB ×5 (03:40→20:39)
[2016-08-20] MEDS: methylPREDNISolone SOD SUCC 40 MG/1 ML VIAL IV PUSH SCH ×3 (05:55→21:46)
[2016-08-20] MEDS: INSULIN ASPART SUPPLEMENTAL SCALE SQ SCH ×4 (06:06→20:38)
[2016-08-20 06:47] LABS: HEMATOCRIT 35.2 % (39.0-51.0); HEMO FLAGS DIFF FINAL; LYMPH % 1.5 % (9.0-44.0); LYMPHOCYTE # 0.3 TH/MM3 (1.0-4.8); MEAN CELL VOLUME 89.4 FL (80.0-100.0); MEAN CORPUSCULAR HEMOGLOBIN 29.1 PG (27.0-34.0); MEAN CORPUSCULAR HGB CONC 32.5 % (32.0-36.0); MONO % 2.6 % (0.0-8.0); NEUT % 95.9 % (16.0-70.0); PLATELET COUNT 193 TH/MM3 (150-450); RED BLOOD COUNT 3.93 MIL/MM3 (4.50-5.90); RED CELL DISTRIBUTION WIDTH 14.5 % (11.6-17.2); WHITE BLOOD COUNT 17.7 TH/MM3 (4.0-11.0)
--- NOTE | 2016-08-20 07:44 | HHI.PR ---
Subjective Remarks in no acute distress. on oxygen via [place] says that he still gets sob easily on walking. afebrile. son at the bedside. Objective Vitals Vital Signs Date Time Temp Pulse Resp B/P Pulse Ox O2 Delivery O2 Flow Rate FiO2 08/20/16 04:00 96.5 110 18 143/75 97 08/20/16 03:42 97 Nasal Cannula 1.50 08/20/16 01:53 18 08/20/16 00:00 96.9 101 18 102/59 96 08/19/16 21:19 97 Nasal Cannula 1.50 08/19/16 20:00 97.2 103 20 119/66 97 08/19/16 16:49 98.0 105 18 131/66 99 08/19/16 12:00 97.6 109 18 144/69 97 08/19/16 08:49 97.4 109 18 132/71 100 08/19/16 08:00 114 I/O 08/19/16 08/19/16 08/19/16 08/20/16 08/20/16 08/20/16 07:00 15:00 23:00 07:00 15:00 23:00 Intake Total 720 ml 600 ml 480 ml 1979 ml Output Total 400 ml 900 ml 200 ml Balance 320 ml -300 ml 480 ml 1779 ml Intake Oral 720 ml 600 ml 480 ml 480 ml IV Total 1499 ml Output Urine Total 400 ml 900 ml 200 ml # Voids 2 1 Result Diagram: 08/20/16 0623 08/19/16 0558 Imaging Last Impressions Head CT 08/18/16258 Signed Impressions: Service Date/Time: Thursday, August 18, 2016 03:26 - CONCLUSION: Unremarkable study. Davy Potter MD Chest X-Ray 08/18/16258 Signed Impressions: Service Date/Time: Thursday, August 18, 2016 03:21 - CONCLUSION: Vague parenchymal opacity left upper lobe not present previously represent slight infiltrate. Davy Potter MD Objective Remarks GENERAL: in no acute distress. CARDIOVASCULAR: Regular rate and regular rhythm without murmurs, gallops, or rubs. RESPIRATORY: mild bilateral wheezing GASTROINTESTINAL: Abdomen soft, non-tender, nondistended. Normal, active bowel sounds MUSCULOSKELETAL: Extremities without clubbing, cyanosis, or edema. NEURO: Alert & Oriented x4 to person, place, time, situation. Moves all ext x4 Procedures none Medications and IVs Current Medications Sodium Chloride 2 ml 2 ml UNSCH PRN IVF FLUSH AFTER USING IV ACCESS Last administered on 08/18/16 03:02; Start 08/18/16 at 03:00; Stop 08/18/16 at 05:58 ; Status DC Sodium Chloride 1,000 ml @ 1,000 mls/hr Q1H ONCE IV Last administered on 03:02; Start 08/18/16 at 02:59; Stop 08/18/16 at 03:58; Status DC Ceftriaxone Sodium 1000 mg/ Sodium Chloride 100 ml @ 200 mls/hr ONCE ONCE IV Last administered on 08/18/16 04:00; Start 08/18/16 at 04:00; Stop 08/18/16 at 04:29; Status DC Azithromycin 500 mg/Sodium Chloride 250 ml @ 250 mls/hr ONCE ONCE IV Last administered on 08/18/16 06:16; Start 08/18/16 at 04:00; Stop 08/18/16 at 04:59 ; Status DC Sodium Chloride 1,000 ml @ 999 mls/hr BOLUS ONCE IV Last administered on 08/18 04:00; Start 08/18/16 at 04:00; Stop 08/18/16 at 05:00; Status DC Potassium Chloride (KCl 20 Meq Premix Inj) 100 ml @ 50 mls/hr Q2H IV ; Start at 05:15; Stop 08/18/16 at 09:14; Status DC Potassium Bicarb/ Potassium Chloride (K-Lyte Cl Eff) 25 meq ONCE ONCE PO Last administered on 08/18/16 06:45; Start 08/18/16 at 05:15; Stop 08/18/16 at 05:16; Status DC Sodium Chloride (NS Flush) 2 ml UNSCH PRN IV FLUSH FLUSH AFTER USING IV ACCESS ; Start 08/18/16 at 06:00 Sodium Chloride (NS Flush) 2 ml BID IV FLUSH Last administered on 08/19/16 09: 30; Start 08/18/16 at 09:00 Naloxone HCl (Narcan Inj) 0.4 mg UNSCH PRN IV SEE LABEL COMMENTS; Start at 06:00 Potassium Bicarb/ Potassium Chloride 50 meq 50 meq ONCE ONCE PO ; Start at 06:00; Stop 08/18/16 at 06:02; Status DC Potassium Chloride 100 ml @ 50 mls/hr Q2H IV Last administered on 08/18/16 08 :19; Start 08/18/16 at 06:00; Stop 08/18/16 at 09:59; Status DC Magnesium Sulfate/ Dextrose 100 ml @ 100 mls/hr Q1H IV Last administered on 15:48; Start 08/18/16 at 06:00; Stop 08/18/16 at 07:59; Status DC Levofloxacin/ Dextrose (Levaquin 750 Mg Premix Inj) 150 ml @ 100 mls/hr Q24H IV Last administered on 08/19/16 09:29; Start 08/18/16 at 09:00 Albuterol/ Ipratropium (Duoneb Neb) 1 ampule Q6HR NEB NEB Last administered on 08/20/16 03:40; Start 08/18/16 at 10:00 Albuterol/ Ipratropium (Duoneb Neb) 1 ampule Q2HR NEB PRN NEB wheezing; Start 08/18/16 at 07:45 Magnesium Oxide (Mag-Ox) 400 mg Q12HR PO Last administered on 08/19/16 20:31; Start 08/18/16 at 09:00 Calcium Carbonate (Oscal) 500 mg Q12HR PO Last administered on 08/19/16 20:31; Start 08/18/16 at 09:00 Enoxaparin Sodium (Lovenox Inj) 40 mg Q24H SQ Last administered on 08/19/16 09: 31; Start 08/18/16 at 09:00 Pantoprazole Sodium (Protonix) 40 mg DAILY PO Last administered on 08/19/16 09: 30; Start 08/18/16 at 09:00 Methylprednisolone Sodium Succinate (SoluMEDROL INJ) 60 mg Q8HR IV PUSH Last administered on 08/19/16 06:07; Start 08/18/16 at 09:15; Stop 08/19/16 at 07:48; Status DC Aspirin (Aspirin Chew) 81 mg ONCE CHEW ; Start 08/18/16 at 08:45; Stop 08/18/16 at 14:00; Status DC Lisinopril (Prinivil) 2.5 mg DAILY PO Last administered on 08/19/16 09:30; Start 08/18/16 at 09:15 Pravastatin Sodium (Pravachol) 10 mg DAILY PO Last administered on 08/19/16 09: 31; Start 08/18/16 at 09:15 Dextrose (D50w (Vial) Inj) 50 ml UNSCH PRN IV HYPOGLYCEMIA-SEE COMMENTS; Start 08/18/16 at 08:45 Glucagon (Glucagon Inj) 1 mg UNSCH PRN OTHER HYPOGLYCEMIA-SEE COMMENTS; Start 08/18/16 at 08:45 Insulin Aspart (NovoLOG SUPPLEMENTAL SCALE) 1 ACHS SLIDING SCALE SQ Last administered on 08/20/16 06:06; Start 08/18/16 at 11:00 Miscellaneous 1 ea 1 ea UNSCH PRN OTHER SEE LABEL COMMENTS; Start 08/18/16 at 09:15 Magnesium Sulfate/ Dextrose (Magnesium Sulfate 1 Gm Premix) 100 ml @ As Directed STK-MED ONCE .ROUTE ; Start 08/18/16 at 15:37; Stop 08/18/16 at 15:38; Status DC Methylprednisolone Sodium Succinate (SoluMEDROL INJ) 40 mg Q8HR IV PUSH Last administered on 08/20/16 05:55; Start 08/19/16 at 14:00 Aspirin (Aspirin Chew) 81 mg DAILY CHEW Last administered on 08/19/16 09:30; Start 08/19/16 at 09:00 A/P Assessment and Plan A/P Sepsissource pneumonia continue with Levaquin- blood cultures negative so far. COPD exacerbation-improving slowly. continue neb treatment and antibiotic- continue IV steroids- keep on oxygen to keep O2 sat > 90% patient is on home oxygen. hypokalemia / hypomagnesemia/Hypocalcemia replaced- will monitor. Generalized weakness consulted PT; recommended HHC. Hypertension; resumed lisinopril diabetes mellitus- diet controlled - accu-check with SSI CAD- s/p CABG- resumed aspirin and statin DVT prophylaxis with Lovenox Discharge Planning consulted case management for HHC. possible discharge within the next 2-3 days if continues to improve. d/w the son. Edin Ferrer MD Aug 20, 2016 07:44
[2016-08-20] MEDS: PRAVASTATIN SOD 10 MG TAB PO SCH (09:56)
[2016-08-20] MEDS: PANTOPRAZOLE SOD 40 MG DELAYED RELEASE TAB PO SCH (09:56)
[2016-08-20] MEDS: MAGNESIUM OXIDE 400 MG TAB PO SCH ×2 (09:56→20:34)
[2016-08-20] MEDS: ENOXAPARIN SODIUM 40 MG/0.4 ML SYRINGE SQ SCH (09:58)
[2016-08-20] MEDS: LISINOPRIL 5 MG TAB PO SCH (09:58)
[2016-08-20] MEDS: ASPIRIN 81 MG CHEW TAB CHEW SCH (09:58)
[2016-08-20] MEDS: CALCIUM CARBONATE 1.25 GM (CA 500 MG) TAB PO SCH ×2 (09:58→20:34)
[2016-08-20] MEDS: SODIUM CHLORIDE 0.9% FLUSH 10 ML FLUSH IV FLUSH SCH ×2 (10:01→20:39)
[2016-08-20] MEDS: LEVOFLOXACIN 750 MG PREMIX INJ 150 ML IV SCH (10:02)
[2016-08-21] VITALS (9 sets, daily range): BP systolic 123–144; BP diastolic 69–86; PULSE 96–116; RESP 16–18; TEMP 95.8–97.2; O2SAT 95–99
[2016-08-21] MEDS: RESP: ALBUTEROL 2.5 MG/IPRATROPIUM 0.5 MG NEB (SCH) NEB ×6 (04:02→19:08)
[2016-08-21] MEDS: methylPREDNISolone SOD SUCC 40 MG/1 ML VIAL IV PUSH SCH ×2 (06:19→17:53)
[2016-08-21] MEDS: INSULIN ASPART SUPPLEMENTAL SCALE SQ SCH ×4 (06:25→22:00)
[2016-08-21] MEDS ORDERED: MAGNESIUM HYDROXIDE SUSP 30 ML CUP PO PRN (07:45)
--- NOTE | 2016-08-21 07:51 | HHI.PR ---
Subjective Remarks f/u; copd exacerbation/pneumonia resting comfortably with no distress. sob is improving slowly. on two liters of oxygen via [place]. denies pain. Objective Vitals Vital Signs Date Time Temp Pulse Resp B/P Pulse Ox O2 Delivery O2 Flow Rate FiO2 08/21/16 04:00 96.5 99 16 123/69 96 08/21/16 00:00 96.4 110 18 144/77 95 08/20/16 20:40 96 Nasal Cannula 2.00 08/20/16 20:00 97.1 101 18 123/66 98 08/20/16 20:00 115 08/20/16 16:00 97.1 99 20 116/64 97 08/20/16 12:00 97.7 108 20 147/69 98 08/20/16 08:00 97.9 105 20 133/67 98 I/O 08/20/16 08/20/16 08/20/16 08/21/16 08/21/16 08/21/16 07:00 15:00 23:00 07:00 15:00 23:00 Intake Total 1979 ml 866 ml 240 ml Output Total 200 ml 200 ml 500 ml Balance 1779 ml 866 ml -200 ml -260 ml Intake Oral 480 ml 640 ml 240 ml IV Total 1499 ml 226 ml Output Urine Total 200 ml 200 ml 500 ml # Voids 1 3 # Bowel Movements 2 Result Diagram: 08/20/16 0623 08/19/16 0558 Imaging Last Impressions Head CT 08/18/16258 Signed Impressions: Service Date/Time: Thursday, August 18, 2016 03:26 - CONCLUSION: Unremarkable study. Davy Potter MD Chest X-Ray 08/18/16258 Signed Impressions: Service Date/Time: Thursday, August 18, 2016 03:21 - CONCLUSION: Vague parenchymal opacity left upper lobe not present previously represent slight infiltrate. Davy Potter MD Objective Remarks GENERAL: in no acute distress. CARDIOVASCULAR: Regular rate and regular rhythm without murmurs, gallops, or rubs. RESPIRATORY: mild bilateral wheezing - seems to be improving GASTROINTESTINAL: Abdomen soft, non-tender, nondistended. Normal, active bowel sounds MUSCULOSKELETAL: Extremities without clubbing, cyanosis, or edema. NEURO: Alert & Oriented x4 to person, place, time, situation. Moves all ext x4 Procedures none Medications and IVs Current Medications Sodium Chloride 2 ml 2 ml UNSCH PRN IVF FLUSH AFTER USING IV ACCESS Last administered on 08/18/16 03:02; Start 08/18/16 at 03:00; Stop 08/18/16 at 05:58 ; Status DC Sodium Chloride 1,000 ml @ 1,000 mls/hr Q1H ONCE IV Last administered on 03:02; Start 08/18/16 at 02:59; Stop 08/18/16 at 03:58; Status DC Ceftriaxone Sodium 1000 mg/ Sodium Chloride 100 ml @ 200 mls/hr ONCE ONCE IV Last administered on 08/18/16 04:00; Start 08/18/16 at 04:00; Stop 08/18/16 at 04:29; Status DC Azithromycin 500 mg/Sodium Chloride 250 ml @ 250 mls/hr ONCE ONCE IV Last administered on 08/18/16 06:16; Start 08/18/16 at 04:00; Stop 08/18/16 at 04:59 ; Status DC Sodium Chloride 1,000 ml @ 999 mls/hr BOLUS ONCE IV Last administered on 08/18 04:00; Start 08/18/16 at 04:00; Stop 08/18/16 at 05:00; Status DC Potassium Chloride (KCl 20 Meq Premix Inj) 100 ml @ 50 mls/hr Q2H IV ; Start at 05:15; Stop 08/18/16 at 09:14; Status DC Potassium Bicarb/ Potassium Chloride (K-Lyte Cl Eff) 25 meq ONCE ONCE PO Last administered on 08/18/16 06:45; Start 08/18/16 at 05:15; Stop 08/18/16 at 05:16; Status DC Sodium Chloride (NS Flush) 2 ml UNSCH PRN IV FLUSH FLUSH AFTER USING IV ACCESS ; Start 08/18/16 at 06:00 Sodium Chloride (NS Flush) 2 ml BID IV FLUSH Last administered on 08/20/16 20: 39; Start 08/18/16 at 09:00 Naloxone HCl (Narcan Inj) 0.4 mg UNSCH PRN IV SEE LABEL COMMENTS; Start at 06:00 Potassium Bicarb/ Potassium Chloride 50 meq 50 meq ONCE ONCE PO ; Start at 06:00; Stop 08/18/16 at 06:02; Status DC Potassium Chloride 100 ml @ 50 mls/hr Q2H IV Last administered on 08/18/16 08 :19; Start 08/18/16 at 06:00; Stop 08/18/16 at 09:59; Status DC Magnesium Sulfate/ Dextrose 100 ml @ 100 mls/hr Q1H IV Last administered on 15:48; Start 08/18/16 at 06:00; Stop 08/18/16 at 07:59; Status DC Levofloxacin/ Dextrose (Levaquin 750 Mg Premix Inj) 150 ml @ 100 mls/hr Q24H IV Last administered on 08/20/16 10:02; Start 08/18/16 at 09:00 Albuterol/ Ipratropium (Duoneb Neb) 1 ampule Q6HR NEB NEB Last administered on 08/20/16 03:40; Start 08/18/16 at 10:00; Stop 08/20/16 at 07:41; Status DC Albuterol/ Ipratropium (Duoneb Neb) 1 ampule Q2HR NEB PRN NEB wheezing; Start 08/18/16 at 07:45 Magnesium Oxide (Mag-Ox) 400 mg Q12HR PO Last administered on 08/20/16 20:34; Start 08/18/16 at 09:00 Calcium Carbonate (Oscal) 500 mg Q12HR PO Last administered on 08/20/16 20:34; Start 08/18/16 at 09:00 Enoxaparin Sodium (Lovenox Inj) 40 mg Q24H SQ Last administered on 08/20/16 09: 58; Start 08/18/16 at 09:00 Pantoprazole Sodium (Protonix) 40 mg DAILY PO Last administered on 08/20/16 09: 56; Start 08/18/16 at 09:00 Methylprednisolone Sodium Succinate (SoluMEDROL INJ) 60 mg Q8HR IV PUSH Last administered on 08/19/16 06:07; Start 08/18/16 at 09:15; Stop 08/19/16 at 07:48; Status DC Aspirin (Aspirin Chew) 81 mg ONCE CHEW ; Start 08/18/16 at 08:45; Stop 08/18/16 at 14:00; Status DC Lisinopril (Prinivil) 2.5 mg DAILY PO Last administered on 08/20/16 09:58; Start 08/18/16 at 09:15 Pravastatin Sodium (Pravachol) 10 mg DAILY PO Last administered on 08/20/16 09: 56; Start 08/18/16 at 09:15 Dextrose (D50w (Vial) Inj) 50 ml UNSCH PRN IV HYPOGLYCEMIA-SEE COMMENTS; Start 08/18/16 at 08:45 Glucagon (Glucagon Inj) 1 mg UNSCH PRN OTHER HYPOGLYCEMIA-SEE COMMENTS; Start 08/18/16 at 08:45 Insulin Aspart (NovoLOG SUPPLEMENTAL SCALE) 1 ACHS SLIDING SCALE SQ Last administered on 08/21/16 06:25; Start 08/18/16 at 11:00 Miscellaneous 1 ea 1 ea UNSCH PRN OTHER SEE LABEL COMMENTS; Start 08/18/16 at 09:15 Magnesium Sulfate/ Dextrose (Magnesium Sulfate 1 Gm Premix) 100 ml @ As Directed STK-MED ONCE .ROUTE ; Start 08/18/16 at 15:37; Stop 08/18/16 at 15:38; Status DC Methylprednisolone Sodium Succinate (SoluMEDROL INJ) 40 mg Q8HR IV PUSH Last administered on 08/21/16 06:19; Start 08/19/16 at 14:00 Aspirin (Aspirin Chew) 81 mg DAILY CHEW Last administered on 08/20/16 09:58; Start 08/19/16 at 09:00 Albuterol/ Ipratropium (Duoneb Neb) 1 ampule Q4HR NEB NEB Last administered on 08/21/16 04:02; Start 08/20/16 at 08:00 A/P Assessment and Plan A/P Sepsissource pneumonia continue with Levaquin- blood cultures negative so far. COPD exacerbation-improving slowly. continue neb treatment and antibiotic- will taper down IV steroids- keep on oxygen to keep O2 sat > 90% patient is on home oxygen. hypokalemia / hypomagnesemia/Hypocalcemia replaced- will monitor. Generalized weakness consulted PT; recommended HHC. Hypertension; resumed lisinopril diabetes mellitus- diet controlled - accu-check with SSI CAD- s/p CABG- resumed aspirin and statin DVT prophylaxis with Lovenox Discharge Planning consulted case management for HHC. possible discharge within the next1-2 days if continues to improve. Edin Ferrer MD Aug 21, 2016 07:50
[2016-08-21] MEDS: SODIUM CHLORIDE 0.9% FLUSH 10 ML FLUSH IV FLUSH SCH ×2 (08:52→20:13)
[2016-08-21] MEDS: MAGNESIUM OXIDE 400 MG TAB PO SCH ×2 (08:52→20:10)
[2016-08-21] MEDS: LISINOPRIL 5 MG TAB PO SCH (08:52)
[2016-08-21] MEDS: ASPIRIN 81 MG CHEW TAB CHEW SCH (08:52)
[2016-08-21] MEDS: LEVOFLOXACIN 750 MG PREMIX INJ 150 ML IV SCH (08:52)
[2016-08-21] MEDS: PANTOPRAZOLE SOD 40 MG DELAYED RELEASE TAB PO SCH (08:52)
[2016-08-21] MEDS: CALCIUM CARBONATE 1.25 GM (CA 500 MG) TAB PO SCH ×2 (08:52→20:11)
[2016-08-21] MEDS: PRAVASTATIN SOD 10 MG TAB PO SCH (08:53)
[2016-08-21] MEDS: ENOXAPARIN SODIUM 40 MG/0.4 ML SYRINGE SQ SCH (08:53)
[2016-08-21] MEDS: SODIUM CHLORIDE 0.65% NASAL SPRAY 45 ML BTL EACH NARE PRN (20:10)
[2016-08-22] VITALS (11 sets, daily range): BP systolic 121–157; BP diastolic 76–92; PULSE 96–132; RESP 16–20; TEMP 96–98.3; O2SAT 96–98
[2016-08-22] MEDS: SODIUM CHLORIDE 0.65% NASAL SPRAY 45 ML BTL EACH NARE PRN ×2 (05:06→17:15)
[2016-08-22] MEDS: methylPREDNISolone SOD SUCC 40 MG/1 ML VIAL IV PUSH SCH ×2 (05:07→17:15)
[2016-08-22] MEDS: RESP: ALBUTEROL 2.5 MG/IPRATROPIUM 0.5 MG NEB (SCH) NEB ×6 (05:15→21:11)
[2016-08-22 06:15] LABS: AUTOMATED NEUTROPHIL # 13.3 TH/MM3 (1.8-7.7); HEMATOCRIT 37.3 % (39.0-51.0); LYMPH % 3.9 % (9.0-44.0); LYMPHOCYTE # 0.6 TH/MM3 (1.0-4.8); MEAN CELL VOLUME 89.7 FL (80.0-100.0); MEAN CORPUSCULAR HEMOGLOBIN 29.8 PG (27.0-34.0); MEAN CORPUSCULAR HGB CONC 33.2 % (32.0-36.0); MONO % 4.8 % (0.0-8.0); NEUT % 91.3 % (16.0-70.0); PLATELET COUNT 242 TH/MM3 (150-450); RED BLOOD COUNT 4.16 MIL/MM3 (4.50-5.90); RED CELL DISTRIBUTION WIDTH 14.6 % (11.6-17.2); WHITE BLOOD COUNT 14.6 TH/MM3 (4.0-11.0)
[2016-08-22 06:25] LABS: HEMO FLAGS AUTO DIFF
[2016-08-22 06:32] LABS: BICARBONATE 35.6 MEQ/L (21.0-32.0)
[2016-08-22] MEDS: INSULIN ASPART SUPPLEMENTAL SCALE SQ SCH ×4 (06:39→21:00)
[2016-08-22 09:15] LABS: BANDS 2 % (0-6); MYELOCYTES 2 % (0-0); NEUTROPHIL # MANUAL DIFF 13.3 TH/MM3 (1.8-7.7); POLYS (SEG NEUTROPHILS) 87 % (16-70); WBC DIFF SAMPLE 100
[2016-08-22 09:16] LABS: SCAN/DIFF FINAL DIFF MANUAL
[2016-08-22] MEDS: PANTOPRAZOLE SOD 40 MG DELAYED RELEASE TAB PO SCH (09:30)
[2016-08-22] MEDS: LEVOFLOXACIN 750 MG PREMIX INJ 150 ML IV SCH (09:30)
[2016-08-22] MEDS: PRAVASTATIN SOD 10 MG TAB PO SCH (09:31)
[2016-08-22] MEDS: ASPIRIN 81 MG CHEW TAB CHEW SCH (09:31)
[2016-08-22] MEDS: ENOXAPARIN SODIUM 40 MG/0.4 ML SYRINGE SQ SCH (09:31)
[2016-08-22] MEDS: MAGNESIUM OXIDE 400 MG TAB PO SCH ×2 (09:31→22:02)
[2016-08-22] MEDS: LISINOPRIL 5 MG TAB PO SCH (09:31)
[2016-08-22] MEDS: CALCIUM CARBONATE 1.25 GM (CA 500 MG) TAB PO SCH ×2 (09:31→22:03)
[2016-08-22] MEDS: SODIUM CHLORIDE 0.9% FLUSH 10 ML FLUSH IV FLUSH SCH ×2 (09:32→22:03)
--- NOTE | 2016-08-22 09:37 | HHI.PR ---
Subjective Remarks Patient seen and examined this morning. Afebrile vital signs stable. Patient reports that last night he had a episode of severe shortness of breath. He said he missed one of his breathing treatments as he was asleep and woke up shortly afterwards feeling very short of breath. This morning he says he's feeling much better and is getting close to his baseline. He is currently on 2 L of nasal cannula which is his baseline at home. He says he is still feeling weak and because of his severe shortness of breath last night wishes to stay in the hospital one last day. Objective Vital Signs Date Time Temp Pulse Resp B/P Pulse Ox O2 Delivery O2 Flow Rate FiO2 08/22/16 08:00 97.3 102 20 144/79 98 08/22/16 07:37 97 Nasal Cannula 2.00 08/22/16 04:00 96.3 102 16 143/82 96 08/22/16 00:30 96.0 100 16 145/76 98 08/22/16 00:18 96 08/21/16 21:11 96.5 116 18 134/79 97 08/21/16 20:19 114 08/21/16 17:20 96.8 110 18 137/86 96 08/21/16 15:36 96 Nasal Cannula 2.00 08/21/16 12:00 97.2 103 18 137/74 98 I/O 08/21/16 08/21/16 08/21/16 08/22/16 08/22/16 08/22/16 07:00 15:00 23:00 07:00 15:00 23:00 Intake Total 240 ml 780 ml 200 ml 260 ml Output Total 500 ml 1000 ml 300 ml 450 ml Balance -260 ml -220 ml -100 ml -190 ml Intake Oral 240 ml 600 ml 200 ml 260 ml IV Total 180 ml Output Urine Total 500 ml 1000 ml 300 ml 450 ml # Bowel Movements 2 0 0 Result Diagram: 08/22/1633908/22/16339 Imaging Last Impressions Head CT 08/18/16258 Signed Impressions: Service Date/Time: Thursday, August 18, 2016 03:26 - CONCLUSION: Unremarkable study. KVeronica Potter MD Chest X-Ray 08/18/16258 Signed Impressions: Service Date/Time: Thursday, August 18, 2016 03:21 - CONCLUSION: Vague parenchymal opacity left upper lobe not present previously represent slight infiltrate. Davy Potter MD Other Results GENERAL: Lying in bed comfortably in no acute distress on 2 L nasal cannula SKIN: Warm and dry. HEAD: Normocephalic. EYES: No scleral icterus. No injection or drainage. NECK: Supple, trachea midline. CARDIOVASCULAR: Regular rate and rhythm without murmurs, gallops, or rubs. RESPIRATORY: Breath sounds equal bilaterally. No accessory muscle use. Mild bilateral expiratory wheezing GASTROINTESTINAL: Abdomen soft, non-tender, nondistended. MUSCULOSKELETAL: No cyanosis, or edema. BACK: Nontender without obvious deformity. No CVA tenderness. Medications and IVs Current Medications Medications (Trade) Dose Ordered Sig/Andrew Route Start Time Stop Time Status Last Admin (NS Flush) 2 ml UNSCH PRN IV FLUSH 08/18/16 06:00 (NS Flush) 2 ml BID IV FLUSH 08/18/16 09:00 08/21/16 20:13 Naloxone HCl 0.4 mg 0.4 mg UNSCH PRN IV 08/18/16 06:00 (Levaquin 750 Mg Premix Inj) 150 ml @ 100 mls/hr Q24H IV 08/18/16 09:00 08/21/16 08:52 (Mag-Ox) 400 mg Q12HR PO 08/18/16 09:00 08/21/16 20:10 (Oscal) 500 mg Q12HR PO 08/18/16 09:00 08/21/16 20:11 (Lovenox Inj) 40 mg Q24H SQ 08/18/16 09:00 08/21/16 08:53 (Protonix) 40 mg DAILY PO 08/18/16 09:00 08/21/16 08:52 (Prinivil) 2.5 mg DAILY PO 08/18/16 09:15 08/21/16 08:52 (Pravachol) 10 mg DAILY PO 08/18/16 09:15 08/21/16 08:53 (D50w (Vial) Inj) 50 ml UNSCH PRN IV 08/18/16 08:45 (Glucagon Inj) 1 mg UNSCH PRN OTHER 08/18/16 08:45 (Pill Splitter) 1 ea UNSCH PRN OTHER 08/18/16 09:15 (Aspirin Chew) 81 mg DAILY CHEW 08/19/16 09:00 08/21/16 08:52 (SoluMEDROL INJ) 40 mg Q12H IV PUSH 08/21/16 18:00 08/22/16 05:07 (Milk Of Magnesia Liq) 30 ml DAILY PRN PO 08/21/16 07:45 08/21/16 08:51 (Ke[employer] [place]) 2 spray Q4H PRN EACH NARE 08/21/16 20:00 08/22/16 05:06 A/P Problem List: (1) Sepsis ICD Code: A41.9 Assessment & Plan: Believed to be due to pneumonia. Stable at this time. -Continue Levaquin -Blood cultures no growth to date 3 days (2) Pneumonia ICD Code: J18.9 Assessment & Plan: -Levaquin 750 mg daily (3) COPD exacerbation ICD Code: J44.1 Assessment & Plan: Currently slowly improving. Continues to have high lateral expiratory wheezing. Says he is getting closer to his baseline but had a rough night due to missing an albuterol treatment. -Continue DuoNeb treatment -Consider starting Salmeterol BID upon discharge -Continue steroids at this time -Anticipate steroid taper upon discharge (4) HTN (hypertension) ICD Code: I10 Assessment & Plan: Continue lisinopril (5) CAD (coronary artery disease) ICD Code: I25.10 Assessment & Plan: Status post CABG -Continue aspirin -Continue statin (6) DM (diabetes mellitus) ICD Code: E11.9 Assessment & Plan: Currently diet-controlled -Accu-Cheks with low-dose insulin sliding scale (7) Nutrition, metabolism, and development symptoms ICD Code: R63.8 Assessment & Plan: Diet: Diabetic diet DVT prophylaxis with Lovenox Discharge Planning consulted case management for [facility]. possible discharge anticipated for tomorrow if continues to improve. Problem Qualifiers (1) Sepsis: Qualified Code: A41.9 - Sepsis, due to unspecified organism (2) Pneumonia: Qualified Code: J18.1 - Pneumonia of left upper lobe due to infectious organism Sriram Carrillo MD R2 Aug 22, 2016 09:37
[2016-08-22] MEDS ORDERED: SALMETEROL XINAFOATE 50 MCG DISKUS INH SCH (09:45)
[2016-08-22] MEDS: METOPROLOL SUCCINATE 25 MG EXTENDED RELEASE TAB PO SCH (11:45)
[2016-08-23] VITALS (10 sets, daily range): BP systolic 123–170; BP diastolic 73–108; PULSE 93–117; RESP 16–20; TEMP 96.2–97.7; O2SAT 92–97
[2016-08-23] MEDS: RESP: ALBUTEROL 2.5 MG/IPRATROPIUM 0.5 MG NEB (SCH) NEB ×7 (00:43→23:15)
[2016-08-23] MEDS: INSULIN ASPART SUPPLEMENTAL SCALE SQ SCH ×4 (05:54→21:43)
[2016-08-23] MEDS: methylPREDNISolone SOD SUCC 40 MG/1 ML VIAL IV PUSH SCH (05:54)
[2016-08-23 07:14] LABS: AUTOMATED NEUTROPHIL # 11.9 TH/MM3 (1.8-7.7); HEMO FLAGS DIFF FINAL; LYMPH % 7.6 % (9.0-44.0); LYMPHOCYTE # 1.1 TH/MM3 (1.0-4.8); MEAN CELL VOLUME 89.3 FL (80.0-100.0); MEAN CORPUSCULAR HEMOGLOBIN 29.4 PG (27.0-34.0); MEAN CORPUSCULAR HGB CONC 32.9 % (32.0-36.0); MONO % 8.4 % (0.0-8.0); PLATELET COUNT 248 TH/MM3 (150-450); RED BLOOD COUNT 4.25 MIL/MM3 (4.50-5.90); RED CELL DISTRIBUTION WIDTH 14.3 % (11.6-17.2); WHITE BLOOD COUNT 14.2 TH/MM3 (4.0-11.0)
[2016-08-23 07:37] LABS: BICARBONATE 39.1 MEQ/L (21.0-32.0); POTASSIUM 4.5 MEQ/L (3.5-5.1)
[2016-08-23] MEDS: LEVOFLOXACIN 750 MG PREMIX INJ 150 ML IV SCH (07:58)
[2016-08-23] MEDS: MAGNESIUM OXIDE 400 MG TAB PO SCH ×2 (07:59→21:38)
[2016-08-23] MEDS: LISINOPRIL 5 MG TAB PO SCH (07:59)
[2016-08-23] MEDS: ASPIRIN 81 MG CHEW TAB CHEW SCH (07:59)
[2016-08-23] MEDS: PRAVASTATIN SOD 10 MG TAB PO SCH (07:59)
[2016-08-23] MEDS: PANTOPRAZOLE SOD 40 MG DELAYED RELEASE TAB PO SCH (08:00)
[2016-08-23] MEDS: CALCIUM CARBONATE 1.25 GM (CA 500 MG) TAB PO SCH ×2 (08:00→21:38)
[2016-08-23] MEDS: ENOXAPARIN SODIUM 40 MG/0.4 ML SYRINGE SQ SCH (08:00)
[2016-08-23] MEDS: METOPROLOL SUCCINATE 25 MG EXTENDED RELEASE TAB PO SCH (08:00)
[2016-08-23] MEDS: SODIUM CHLORIDE 0.9% FLUSH 10 ML FLUSH IV FLUSH SCH ×2 (08:01→21:43)
--- NOTE | 2016-08-23 09:10 | HHI.PR ---
Subjective Remarks Follow-up for pneumonia, COPD exacerbation. Patient is currently doing well. However he complains of fatigue today. He says he was doing much better yesterday but today he feels fatigued. Although our plan was to discharge patient home with home health fairly soon, patient's son raised concerns about patient going home. Son wants patient to get better and somewhat more ambulatory in the hospital first before being discharged home. He does not want SNF either. Objective Vitals Vital Signs Date Time Temp Pulse Resp B/P Pulse Ox O2 Delivery O2 Flow Rate FiO2 08/23/16 08:07 93 Nasal Cannula 2.00 08/23/16 08:00 96.7 98 18 162/92 97 08/23/16 04:00 96.2 94 16 123/73 96 08/23/16 00:00 97.4 93 18 137/78 95 08/22/16 21:10 96 Nasal Cannula 2.00 08/22/16 20:00 98.3 100 16 157/86 96 08/22/16 16:15 96.9 97 20 142/82 96 08/22/16 12:39 108 08/22/16 12:00 96.0 101 20 121/92 97 I/O 08/22/16 08/22/16 08/22/16 08/23/16 08/23/16 08/23/16 07:00 15:00 23:00 07:00 15:00 23:00 Intake Total 260 ml 720 ml 250 ml 0 ml Output Total 450 ml 800 ml 200 ml Balance -190 ml 720 ml -550 ml 0 ml -200 ml Intake Oral 260 ml 720 ml 250 ml IV Total 0 ml 0 ml Output Urine Total 450 ml 800 ml 200 ml # Bowel Movements 0 0 Result Diagram: 08/23/16 0629 08/23/16 0629 Imaging Last Impressions Head CT 08/18/16258 Signed Impressions: Service Date/Time: Thursday, August 18, 2016 03:26 - CONCLUSION: Unremarkable study. Davy Potter MD Chest X-Ray 08/18/16258 Signed Impressions: Service Date/Time: Thursday, August 18, 2016 03:21 - CONCLUSION: Vague parenchymal opacity left upper lobe not present previously represent slight infiltrate. Davy Potter MD Objective Remarks GENERAL: Alert, NAD. SKIN: Warm and dry. HEAD: Normocephalic. EYES: No scleral icterus. No injection or drainage. NECK: Supple, trachea midline. No JVD or lymphadenopathy. CARDIOVASCULAR: Regular rate and rhythm without murmurs, gallops, or rubs. RESPIRATORY: Moderate air entry. No appreciable wheezing. GASTROINTESTINAL: Abdomen soft, non-tender, nondistended. MUSCULOSKELETAL: No cyanosis, or edema. BACK: Nontender without obvious deformity. No CVA tenderness. Procedures Echo 08/18/2016 CONCLUSIONS Normal left ventricular size and wall thickness. The left ventricular systolic function is normal with an estimated ejection fraction in the range of 60-65%. Left ventricular diastolic function parameters are normal. The right ventricle is mildly dilated. The right atrial size is mildly dilated. Mild thickening of the mitral valve leaflets. [id number] mitral valve regurgitation. Mild thickening of the tricuspid valve leaflets. There is mild to moderate tricuspid valve regurgitation. There is estimated mild pulmonary hypertension present (48 mmHg). A/P Assessment and Plan Mr. Jefferson is a 75-year-old male with a history of COPD, hypertension, hyperlipidemia who presented to the emergency department on 08/18/2016 due to syncope. CXR showed possible right sided infiltrates. - Community Acquired Pneumonia - Acute COPD exacerbation - We'll switch patient's IV Levaquin to by mouth. - He received 6 days of abx so far and steroid. We will discontinue steroid. - Continue DuoNeb. - Hypertension - Hyperlipidemia - CAD s/p CABG - Continue lisinopril 2.5 mg daily, metoprolol succinate 25 mg daily. - Continue pravastatin 10 mg daily - Continue Aspirin 81mg Qday. - Diabetes mellitus - continue sliding scale insulin. Blood glucose is well controlled. - Generalized weakness - PT recommends [facility]. Son does not want to take him home yet and does not want SNF either. - Will refer to [facility]. Patient would be a good candidate for [place]. Full code. Lovenox. Patient is medically ready to be discharged - pending placement arrangement. Marcelina Zamora DO Aug 23, 2016 9:10 am
[2016-08-24] VITALS (8 sets, daily range): BP systolic 107–147; BP diastolic 66–91; PULSE 90–114; RESP 18–20; TEMP 96.5–97.4; O2SAT 95–100
[2016-08-24] MEDS: RESP: ALBUTEROL 2.5 MG/IPRATROPIUM 0.5 MG NEB (SCH) NEB ×4 (03:23→15:47)
[2016-08-24] MEDS: INSULIN ASPART SUPPLEMENTAL SCALE SQ SCH ×3 (06:29→16:00)
--- NOTE | 2016-08-24 08:18 | HHI.PR ---
Subjective Remarks Follow-up for pneumonia, COPD exacerbation. Mr. Jefferson is currently doing well. Denies any chest pain, shortness of breath, fever or chills. He still feels somewhat lethargic but appears to be more alert and energetic. Objective Vitals Vital Signs Date Time Temp Pulse Resp B/P Pulse Ox O2 Delivery O2 Flow Rate FiO2 08/24/16 08:00 96.7 92 20 147/87 100 08/24/16 07:32 98 Nasal Cannula 2.00 08/24/16 04:05 104 08/24/16 04:00 97.4 105 18 143/91 95 08/24/16 00:00 96.6 102 18 142/89 97 08/23/16 23:56 106 08/23/16 20:11 117 08/23/16 20:00 97.7 98 17 145/86 97 08/23/16 19:23 97 Nasal Cannula 2.00 08/23/16 16:00 96.5 115 20 170/108 92 08/23/16 12:00 97.0 93 18 144/83 95 I/O 08/23/16 08/23/16 08/23/16 08/24/16 08/24/16 08/24/16 07:00 15:00 23:00 07:00 15:00 23:00 Intake Total 0 ml 720 ml Output Total 450 ml 700 ml 375 ml Balance 0 ml 270 ml -700 ml -375 ml Intake Oral 720 ml IV Total 0 ml Output Urine Total 450 ml 700 ml 375 ml # Voids 1 # Bowel Movements 1 Result Diagram: 08/23/1629 08/23/16 06 Imaging Last Impressions Head CT 08/18/16258 Signed Impressions: Service Date/Time: Thursday, August 18, 2016 03:26 - CONCLUSION: Unremarkable study. Davy Potter MD Chest X-Ray 08/18/16258 Signed Impressions: Service Date/Time: Thursday, August 18, 2016 03:21 - CONCLUSION: Vague parenchymal opacity left upper lobe not present previously represent slight infiltrate. Davy Potter MD Objective Remarks GENERAL: Alert, NAD. SKIN: Warm and dry. HEAD: Normocephalic. EYES: No scleral icterus. No injection or drainage. NECK: Supple, trachea midline. No JVD or lymphadenopathy. CARDIOVASCULAR: Regular rate and rhythm without murmurs, gallops, or rubs. RESPIRATORY: Moderate air entry. No appreciable wheezing. GASTROINTESTINAL: Abdomen soft, non-tender, nondistended. MUSCULOSKELETAL: No cyanosis, or edema. BACK: Nontender without obvious deformity. No CVA tenderness. Procedures Echo 08/18/2016 CONCLUSIONS Normal left ventricular size and wall thickness. The left ventricular systolic function is normal with an estimated ejection fraction in the range of 60-65%. Left ventricular diastolic function parameters are normal. The right ventricle is mildly dilated. The right atrial size is mildly dilated. Mild thickening of the mitral valve leaflets. [id number] mitral valve regurgitation. Mild thickening of the tricuspid valve leaflets. There is mild to moderate tricuspid valve regurgitation. There is estimated mild pulmonary hypertension present (48 mmHg). A/P Assessment and Plan Mr. Jefefrson is a 75-year-old male with a history of COPD, hypertension, hyperlipidemia who presented to the emergency department on 08/18/2016 due to syncope. CXR showed possible right sided infiltrates. - Community Acquired Pneumonia - Acute COPD exacerbation - Switched from IV Levaquin to PO. With today's dose, patient received total of 7 days of abx. - He received 6 days of abx so far and steroid. We will discontinue steroid. - Continue DuoNeb. - Hypertension - Hyperlipidemia - CAD s/p CABG - Continue lisinopril 2.5 mg daily, metoprolol succinate 25 mg daily. - Continue pravastatin 10 mg daily - Continue Aspirin 81mg Qday. - Diabetes mellitus - continue sliding scale insulin. Blood glucose is well controlled. - Generalized weakness - PT recommends HHC. Son does not want to take him home yet and does not want SNF either. - [place] CIR denied. Patient's son was given various SNF options. Full code. Lovenox 40mg Q24hrs. Marcelina Zamora DO Aug 24, 2016 8:18 am
[2016-08-24] MEDS: PANTOPRAZOLE SOD 40 MG DELAYED RELEASE TAB PO SCH (09:00)
[2016-08-24] MEDS: SODIUM CHLORIDE 0.9% FLUSH 10 ML FLUSH IV FLUSH SCH (09:00)
[2016-08-24] MEDS ORDERED: LEVOFLOXACIN 750 MG TAB PO SCH (09:00)
[2016-08-24] MEDS: ASPIRIN 81 MG CHEW TAB CHEW SCH (10:14)
[2016-08-24] MEDS: CALCIUM CARBONATE 1.25 GM (CA 500 MG) TAB PO SCH (10:14)
[2016-08-24] MEDS: METOPROLOL SUCCINATE 25 MG EXTENDED RELEASE TAB PO SCH (10:15)
[2016-08-24] MEDS: MAGNESIUM OXIDE 400 MG TAB PO SCH (10:15)
[2016-08-24] MEDS: LISINOPRIL 5 MG TAB PO SCH (10:15)
[2016-08-24] MEDS: PRAVASTATIN SOD 10 MG TAB PO SCH (10:15)
[2016-08-24] MEDS: ENOXAPARIN SODIUM 40 MG/0.4 ML SYRINGE SQ SCH (10:15)
[2016-08-24 12:12] LABS: AUTOMATED NEUTROPHIL # 7.6 TH/MM3 (1.8-7.7); BASOPHIL % 0.2 % (0.0-2.0); EOSINOPHIL # 0.5 TH/MM3 (0-0.4); EOSINOPHIL % 5.2 % (0.0-4.0); HEMATOCRIT 40.1 % (39.0-51.0); HEMO FLAGS DIFF FINAL; LYMPH % 8.4 % (9.0-44.0); LYMPHOCYTE # 0.8 TH/MM3 (1.0-4.8); MEAN CELL VOLUME 90.4 FL (80.0-100.0); MEAN CORPUSCULAR HEMOGLOBIN 29.4 PG (27.0-34.0); MEAN CORPUSCULAR HGB CONC 32.5 % (32.0-36.0); MONO % 9.7 % (0.0-8.0); NEUT % 76.5 % (16.0-70.0); PLATELET COUNT 242 TH/MM3 (150-450); RED BLOOD COUNT 4.43 MIL/MM3 (4.50-5.90); RED CELL DISTRIBUTION WIDTH 14.4 % (11.6-17.2); WHITE BLOOD COUNT 9.9 TH/MM3 (4.0-11.0)
[2016-08-24 12:51] LABS: BICARBONATE 41.8 MEQ/L (21.0-32.0); POTASSIUM 3.8 MEQ/L (3.5-5.1)
[2016-08-24] MEDS ORDERED: METO25TA3 PO (14:27)
--- NOTE | 2016-08-25 00:24 | HHI.DS ---
Discharge Summary Admission Date Aug 18, 2016 at 05:53 Discharge Date: Aug 24, 2016 Admitting Diagnosis Sepsis (1) COPD exacerbation ICD Code: J44.1 Diagnosis: Principal (2) DM (diabetes mellitus) ICD Code: E11.9 (3) HTN (hypertension) ICD Code: I10 (4) Pneumonia ICD Code: J18.9 Diagnosis: Principal Procedures Echo 08/18/2016 CONCLUSIONS Normal left ventricular size and wall thickness. The left ventricular systolic function is normal with an estimated ejection fraction in the range of 60-65%. Left ventricular diastolic function parameters are normal. The right ventricle is mildly dilated. The right atrial size is mildly dilated. Mild thickening of the mitral valve leaflets. [id number] mitral valve regurgitation. Mild thickening of the tricuspid valve leaflets. There is mild to moderate tricuspid valve regurgitation. There is estimated mild pulmonary hypertension present (48 mmHg). Brief History - From Admission short of breath pretty sudden today coughing no fever 99.5 called son at 1130p.m. short of breath, panic son came o2 was 90-92 HR was 120-130 at resting earlier during day as well 120-130, o2 was low too had cabg before with similar problems tried walking out to car with son could not make it to car and syncopised thus called ems no swelling for past one week, by end of day, he is very fatigued and short of breath on exertion ef in 2011 was 30% denies chest pains/ palpitations/focal weakness/dizziness. denies any nausea/vomiting/diarrhea/urinary burning or pain on urination. Denies any hematemesis/hematochezia/melena/hematuria. CBC/BMP: 08/24/16 1058 08/24/16 1058 Significant Findings Laboratory Tests Test 08/22/16 08/23/16 08/24/16 03:40 06:29 10:58 White Blood Count 14.6 TH/MM3 14.2 TH/MM3 (4.0-11.0) (4.0-11.0) Red Blood Count 4.16 MIL/MM3 4.25 MIL/MM3 4.43 MIL/MM3 (4.50-5.90) (4.50-5.90) (4.50-5.90) Hemoglobin 12.4 GM/DL 12.5 GM/DL (13.0-17.0) (13.0-17.0) Hematocrit 37.3 % 38.0 % (39.0-51.0) (39.0-51.0) Neutrophils (%) (Auto) 91.3 % 84.0 % 76.5 % (16.0-70.0) (16.0-70.0) (16.0-70.0) Lymphocytes (%) (Auto) 3.9 % 7.6 % 8.4 % (9.0-44.0) (9.0-44.0) (9.0-44.0) Neutrophils # (Auto) 13.3 TH/MM3 11.9 TH/MM3 (1.8-7.7) (1.8-7.7) Lymphocytes # (Auto) 0.6 TH/MM3 0.8 TH/MM3 (1.0-4.8) (1.0-4.8) Neutrophils % (Manual) 87 % (16-70) Lymphocytes % 6 % (9-44) Neutrophils # (Manual) 13.3 TH/MM3 (1.8-7.7) Myelocytes 2 % (0-0) Carbon Dioxide Level 35.6 MEQ/L 39.1 MEQ/L 41.8 MEQ/L (21.0-32.0) (21.0-32.0) (21.0-32.0) Anion Gap 2 MEQ/L (5-15) 2 MEQ/L (5-15) -1 MEQ/L (5-15) Blood Urea Nitrogen 34 MG/DL (7-18) 27 MG/DL (7-18) 25 MG/DL (7-18) Estimat Glomerular Filtration 69 ML/MIN (>89) 74 ML/MIN (>89) 79 ML/MIN (>89) Rate Random Glucose 148 MG/DL 113 MG/DL 134 MG/DL (74-106) (74-106) (74-106) Monocytes (%) (Auto) 8.4 % (0.0-8.0) 9.7 % (0.0-8.0) Monocytes # (Auto) 1.2 TH/MM3 1.0 TH/MM3 (0-0.9) (0-0.9) Eosinophils (%) (Auto) 5.2 % (0.0-4.0) Eosinophils # (Auto) 0.5 TH/MM3 (0-0.4) Chloride Level 97 MEQ/L (98-107) Imaging Last Impressions Head CT 08/18/16258 Signed Impressions: Service Date/Time: Thursday, August 18, 2016 03:26 - CONCLUSION: Unremarkable study. Davy Potter MD Chest X-Ray 08/18/16258 Signed Impressions: Service Date/Time: Thursday, August 18, 2016 03:21 - CONCLUSION: Vague parenchymal opacity left upper lobe not present previously represent slight infiltrate. Davy Potter MD PE at Discharge GENERAL: Alert, NAD. SKIN: Warm and dry. HEAD: Normocephalic. EYES: No scleral icterus. No injection or drainage. NECK: Supple, trachea midline. No JVD or lymphadenopathy. CARDIOVASCULAR: Regular rate and rhythm without murmurs, gallops, or rubs. RESPIRATORY: Moderate air entry. No appreciable wheezing. GASTROINTESTINAL: Abdomen soft, non-tender, nondistended. MUSCULOSKELETAL: No cyanosis, or edema. BACK: Nontender without obvious deformity. No CVA tenderness. Pt update on day of discharge Patient is doing well. Denies any chest pain, shortness of breath, fever or chills. CM discussed with son and patient. They both agree on SNF placement. Hospital Course Mr. Jefferson is a 75-year-old male with a history of COPD, hypertension, hyperlipidemia who presented to the emergency department on 08/18/2016 due to syncope. CXR showed possible right sided infiltrates. - Community Acquired Pneumonia - Acute COPD exacerbation - Switched from IV Levaquin to PO. With today's dose, patient received total of 7 days of abx. - He received 6 days of steroid. We discontinued steroid. - Continue DuoNeb. - Hypertension - Hyperlipidemia - CAD s/p CABG - Continue lisinopril 2.5 mg daily, metoprolol succinate 25 mg daily. - Continue pravastatin 10 mg daily - Continue Aspirin 81mg Qday. - Diabetes mellitus - continue sliding scale insulin. Blood glucose is well controlled. - Generalized weakness - Patient would benefit from PT at SNF. [facility] declined. Pt Condition on Discharge: Good Discharge Disposition: Discharge to SNF Discharge Time: > 30 minutes Discharge Instructions DIET: Follow Instructions for: Diabetic Diet Activities you can perform: Regular-No Restrictions Follow up Referrals: SNF/[facility]/ New Medications: Metoprolol Tartrate (Metoprolol Tartrate) 25 Mg Tab 25 MG PO BID Heart #60 Ref 0 TAB Continued Medications: Albuterol 6.7 GM Inh (Proventil Hfa 6.7 GM Inh) 90 Mcg/Act Aer 2 PUFF INH Q4-6H PRN SHORTNESS OF BREATH #1 Ref 0 INHALER Aspirin (Aspirin) 81 Mg Chew 81 MG CHEW ONCE #1 Ref 0 TAB Budesonide-Formoterol Inh (Symbicort Inh) 160-4.5 Mcg/Act Aero 2 PUFF INH Q12HR #1 Ref 0 INHALER Guaifenesin ER (Mucus Relief ER) 600 Mg Tab 1200 MG PO BID PRN CHEST CONGESTION AND/OR COUGH Ref 0 TAB Ipratropium-Albuterol Inh (Combivent Respimat Inh) 20-100 Correction/Act Aero 1 PUFF INH QID Asthma Management #1 Ref 0 INHALER Lisinopril (Lisinopril) 2.5 Mg Tab 2.5 MG PO DAILY #30 Ref 0 TAB Simvastatin (Simvastatin) 5 Mg Tab 5 MG PO DAILY Cholesterol Management #30 Ref 0 TAB Marcelina Zamora DO Aug 25, 2016 00:24
== END 2016-08-24 18:22 | DRG 871 ==
LOC: NEPE 02:11 → NEDA 05:53 → HOCA 07:32
PROVIDERS: ADMIT Hospitalist; ATTEND Hospitalist
DX: A41.9 Sepsis, unspecified organism (principal); J18.9 Pneumonia, unspecified organism; I27.2 Other secondary pulmonary hypertension; Z99.81 Dependence on supplemental oxygen; J44.0 Chronic obstructive pulmonary disease with (acute) lower respiratory infection; E83.42 Hypomagnesemia; J44.1 Chronic obstructive pulmonary disease with (acute) exacerbation; E83.51 Hypocalcemia; E78.5 Hyperlipidemia, unspecified; I08.1 Rheumatic disorders of both mitral and tricuspid valves; E11.9 Type 2 diabetes mellitus without complications; I10 Essential (primary) hypertension; I25.10 Atherosclerotic heart disease of native coronary artery without angina pectoris; E87.6 Hypokalemia; Z95.1 Presence of aortocoronary bypass graft; I25.2 Old myocardial infarction; Z87.891 Personal history of nicotine dependence; Z79.82 Long term (current) use of aspirin
CPT/HCPCS: 70450; 71010; 80048; 80053; 81001; 82550; 82948; 83605; 83735; 83880; 84484; 85007; 85025; 85027; 85610; 85730; 87040; 93005; 93306; 94640; 94664; 96361; 96365; G0424; J0456; J0696; J1650; J1815; J1956; J2920; J2930; J3475; J3480; J7030; J7050

== ENCOUNTER 2016-12-13 11:03 | Inpatient (IN) | payer OTHER, MEDICARE ==
[~2016-12-13] VITALS: Ht 170.2 cm; Wt 62.2 kg
[2016-12-13] VITALS (11 sets, daily range): BP systolic 90–115; BP diastolic 51–66; PULSE 90–123; RESP 18–20; TEMP 97.7–98.6; O2SAT 94–97
[~2016-12-13 11:03] MED LIST changes: -ASPI81 PO; +ASPI81CH CHEW; -GLUCTAB; +GUAI600T11 PO; +IPRAAER INH; -LISI-363 PO; +LISI2.5T3 PO; +METO25TA3 PO; +SIMV5TAB3 PO; -SIMV5TAB32 PO; +SYMB160A INH
[2016-12-13] MEDS ORDERED: SODIUM CHLORIDE 0.9% FLUSH 10 ML FLUSH IVF PRN (11:15)
[2016-12-13] MEDS ORDERED: LISI20TA3 PO (11:23)
[2016-12-13] MEDS ORDERED: HYDR-3583 PO (11:23)
[2016-12-13 11:32] LABS: AUTOMATED NEUTROPHIL # 6.4 TH/MM3 (1.8-7.7); BASOPHIL % 0.2 % (0.0-2.0); EOSINOPHIL # 0.2 TH/MM3 (0-0.4); EOSINOPHIL % 2.6 % (0.0-4.0); HEMATOCRIT 40.2 % (39.0-51.0); HEMO FLAGS DIFF FINAL; LYMPH % 17.9 % (9.0-44.0); LYMPHOCYTE # 1.6 TH/MM3 (1.0-4.8); MEAN CORPUSCULAR HEMOGLOBIN 29.8 PG (27.0-34.0); MEAN CORPUSCULAR HGB CONC 33.1 % (32.0-36.0); MONO % 8.4 % (0.0-8.0); NEUT % 70.9 % (16.0-70.0); PLATELET COUNT 221 TH/MM3 (150-450); RED BLOOD COUNT 4.47 MIL/MM3 (4.50-5.90)
[2016-12-13 11:40] LABS: APTT (PATIENT) 27.3 SEC (24.3-30.1); INTERNATIONAL NORMALIZED RATIO 0.9 RATIO; PROTHROMBIN TIME - PATIENT 9.7 SEC (9.8-11.6)
[2016-12-13 11:47] LABS: ALT (GPT) 16 U/L (12-78); ANION GAP 6 MEQ/L (5-15); AST (GOT) 14 U/L (15-37); BICARBONATE 31.4 MEQ/L (21.0-32.0); CHLORIDE 97 MEQ/L (98-107); GLOMERULAR FILTRATION RATE 54 ML/MIN (>89); POTASSIUM 4.5 MEQ/L (3.5-5.1); SODIUM (NA) 134 MEQ/L (136-145)
--- NOTE | 2016-12-13 11:50 | RADRPT ---
EXAM DATE/TIME: 12/13/2016 11:20 [facility] COMPARISON: CHEST SINGLE AP, August 18, 2016, 3:21. INDICATIONS : Chest pain, shortness of breath, and dizziness. MEDICAL HISTORY : Chronic obstructive pulmonary disease. SURGICAL HISTORY : Inguinal hernia repair. CABG. ENCOUNTER: Initial ACUITY: 1 day PAIN SCORE: 6/10 LOCATION: Bilateral chest FINDINGS: A single view of the chest demonstrates the lungs to be symmetrically, but hyperaerated with no focal mass lesion or effusion. Heart size is normal. Postsurgical changes with findings of CABG and abando maureen epicardial pacer wires. Median sternotomy wires are intact. Osseous structures are also intact. CONCLUSION: 1. Marked hyperinflation characteristic of significant COPD, unchanged. 2. No acute infiltrate or effusion. Demian Dela Cruz MD on December 13, 2016 at 11:47 Board Certified Radiologist. This report was verified electronically.
[2016-12-13 11:52] LABS: ALKALINE PHOSPHATASE 64 U/L (45-117); BLOOD UREA NITROGEN 21 MG/DL (7-18); TOTAL BILIRUBIN ADULT 0.4 MG/DL (0.2-1.0)
[2016-12-13 11:55] LABS: CREATINE KINASE 96 U/L (39-308)
--- NOTE | 2016-12-13 12:16 | PD ---
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 SON WAS NOT IN AGREEMENT WITH SUCH EARLY RELEASE FROM [facility] AND BROUGHT HERE FOR EVALUATION. CURRENTLY PATIENT IS SYMPTOm FREE WHILE AT REST, HOWEVER SITTING UP AND ANY OTHER TYPE OF EXERTION SEEMS TO BRING ON SYMPTOMS. SON CALLED [place] SURGEON, WHOSE OFFICE RECC TO COME TO ER. PCP: [facility] PMHX: DM,HTN, HYPERLIP PSHX: HERNIA REPAIR YESTERDAY, CABBG PFSH Past Medical History Cancer: No Cardiovascular Problems: Yes (CABG 2010) High Cholesterol: Yes COPD: Yes Diabetes: Yes (borderline) Patient Takes Glucophage: No Genitourinary: No Hiatal Hernia: Yes Hypertension: Yes Immune Disorder: No Inguinal Hernia: Yes (REPAIR R 12/12/16) Musculoskeletal: No Neurologic: No Psychiatric: No Reproductive: No Respiratory: No Immunizations Current: Yes Myocardial Infarction: Yes Sleep Apnea: No Past Surgical History Coronary Artery Bypass Graft: Yes Genitourinary Surgery: Yes (vasectomy) Tonsillectomy: Yes Other Surgery: Yes (VASECTOMY/ R INGUINAL HERNIA SURG) Social History Alcohol Use: Yes (2 GLASS WINE/DAILY) Tobacco Use: No (QUIT 6 YEARS AGO) Substance Use: No ( ) Allergies-Medications (Allergen,Severity, Reaction): Coded Allergies: No Known Allergies (Unverified , 08/18/16) Reported Meds & Prescriptions Reported Meds & Active Scripts Active Review of Systems General / Constitutional: No: Fever Eyes: No: Visual changes HENT: No: Headaches Cardiovascular: No: Chest Pain or Discomfort Respiratory: Positive: Shortness of Breath Gastrointestinal: No: Abdominal Pain Genitourinary: No: Dysuria Musculoskeletal: No: Pain Skin: No Rash Neurologic: No: Weakness Psychiatric: No: Depression Endocrine: No: Polydipsia Hematologic/Lymphatic: No: Easy Bruising Physical Exam Narrative GENERAL: SKIN: Warm and dry. HEAD: Atraumatic. Normocephalic. EYES: Pupils equal and round. No scleral icterus. No injection or drainage. ENT: No nasal bleeding or discharge. Mucous membranes pink and moist. NECK: Trachea midline. No JVD. CARDIOVASCULAR: Regular rate and rhythm. RESPIRATORY: No accessory muscle use. Clear to auscultation. Breath sounds equal bilaterally. mild wheezing heard but good tv GASTROINTESTINAL: Abdomen soft, non-tender, nondistended. well healing right inguinal surgical incision with dermabond type of closure. MUSCULOSKELETAL: Extremities without clubbing, cyanosis, or edema. No obvious deformities. NEUROLOGICAL: Awake and alert. No obvious cranial nerve deficits. Motor grossly within normal limits. Five out of 5 muscle strength in the arms and legs. Normal speech. PSYCHIATRIC: Appropriate mood and affect; insight and judgment normal. Data Data Last Documented VS Orders Orders Electrocardiogram (12/13/16 11:08) B-Type Natriuretic Peptide (12/13/16 11:08) Ckmb (Isoenzyme) Profile (12/13/16 11:08) Complete Blood Count With Diff (12/13/16 11:08) Comprehensive Metabolic Panel (12/13/16 11:08) Prothrombin Time / Inr (Pt) (12/13/16 11:08) Act Partial Throm Time (Ptt) (12/13/16 11:08) Troponin I (12/13/16 11:08) Lipase (12/13/16 11:08) Chest, Single Ap (12/13/16 11:08) Ecg Monitoring (12/13/16 11:08) Bilateral Bp Monitoring (12/13/16 11:08) Iv Access Insert/Monitor (12/13/16 11:08) Oximetry (12/13/16 11:08) Oxygen Administration (12/13/16 11:08) Sodium Chloride 0.9% Flush (Ns Flush) (12/13/16 11:15) Admit Order (Ed Use Only) (12/13/16 12:32) Shake Maker / Telemetry GUSTAVO.Q8H (12/13/16 12:32) Activity Bed Rest (12/13/16 12:32) Notify Dr: Other (12/13/16 12:32) Aspirin Chew (Aspirin Chew) (12/13/16 12:45) Labs Laboratory Tests Test 12/13/16 11:12 White Blood Count 9.0 TH/MM3 Red Blood Count 4.47 MIL/MM3 Hemoglobin 13.3 GM/DL Hematocrit 40.2 % Mean Corpuscular Volume 90.0 FL Mean Corpuscular Hemoglobin 29.8 PG Mean Corpuscular Hemoglobin Concent 33.1 % Red Cell Distribution Width 15.0 % Platelet Count 221 TH/MM3 Mean Platelet Volume 7.9 FL Neutrophils (%) (Auto) 70.9 % Lymphocytes (%) (Auto) 17.9 % Monocytes (%) (Auto) 8.4 % Eosinophils (%) (Auto) 2.6 % Basophils (%) (Auto) 0.2 % Neutrophils # (Auto) 6.4 TH/MM3 Lymphocytes # (Auto) 1.6 TH/MM3 Monocytes # (Auto) 0.8 TH/MM3 Eosinophils # (Auto) 0.2 TH/MM3 Basophils # (Auto) 0.0 TH/MM3 CBC Comment DIFF FINAL Differential Comment Prothrombin Time 9.7 SEC Prothromb Time International Ratio 0.9 RATIO Activated Partial Thromboplast Time 27.3 SEC Blood Urea Nitrogen 21 MG/DL Creatinine 1.29 MG/DL Random Glucose 166 MG/DL Total Protein 6.5 GM/DL Albumin 3.2 GM/DL Calcium Level 8.9 MG/DL Alkaline Phosphatase 64 U/L Aspartate Amino Transf (AST/SGOT) 14 U/L Alanine Aminotransferase (ALT/SGPT) 16 U/L Total Bilirubin 0.4 MG/DL Sodium Level 134 MEQ/L Potassium Level 4.5 MEQ/L Chloride Level 97 MEQ/L Carbon Dioxide Level 31.4 MEQ/L Anion Gap 6 MEQ/L Estimat Glomerular Filtration Rate 54 ML/MIN Total Creatine Kinase 96 U/L Troponin I 1.23 NG/ML B-Type Natriuretic Peptide 189 PG/ML Lipase 220 U/L MDM Medical Decision Making Medical Screen Exam Complete: Yes Emergency Medical Condition: Yes Medical Record Reviewed: Yes Interpretation(s) ST 108, RBBB NOTED WITHOUT CONCORDANCE Differential Diagnosis anemia v infectioous complication post surgery v nonstemi v stemi v electrolyte abnl v pna v copd exac Narrative Course no inital anemia or leukocytosis noted on cbc, electrolytes mostly wnl, strangely troponin was greatly elevated, heparin started and cardiology made aware (they placed patient on dairy and food laboratory assistant list, and was taken there shortly after medicine saw patient in ED). Critical Care Narrative CRITICAL CARE NOTE: With evaluation of the patient, labs, EKG, receipt of radiologic studies, administration of medications, reevaluation the patient and discussion of the patient with the admitting physicians, the total critical care time was [45] minutes. Time to perform other separately billable procedures was not included in the critical care time. Diagnosis Primary Impression: NONSTEMI Scripts Sennosides-Docusate Sodium (Senna Plus 8.6-50 mg) 8.6 Mg-50 Mg Tab 1 TAB PO BID, #60 TAB Prov: Moni Gallo MD R2 12/15/16 Albuterol Neb (Albuterol Neb) 2.5 Mg/3 Ml Neb 2.5 MG NEB Q4HR NEB, #30 NEBULE Prov: Moni Gallo MD R2 12/15/16 Lisinopril-Hctz (Lisinopril-Hctz) 20-25 Mg Tab 1 TAB PO DAILY for Blood Pressure Management, #30 TAB 0 Refills Prov: Moni Gallo MD R2 12/15/16 Simvastatin (Simvastatin) 5 Mg Tab 5 MG PO DAILY for Cholesterol Management, #30 TAB 0 Refills Prov: Moni Gallo MD R2 12/15/16 Guaifenesin ER (Mucus Relief ER) 600 Mg Tab 1200 MG PO BID Y for CHEST CONGESTION AND/OR COUGH, #30 TAB 0 Refills Prov: Moni Gallo MD R2 12/15/16 Aspirin (Aspirin) 81 Mg Chew 81 MG CHEW DAILY, #30 TAB 0 Refills Prov: Moni Gallo MD R2 12/15/16 Ipratropium-Albuterol Inh (Combivent Respimat Inh) 20-100 [facility]/Act Aero 1 PUFF INH QID for Asthma Management, #1 INHALER 0 Refills Prov: Moni Gallo MD R2 12/15/16 Budesonide-Formoterol Inh (Symbicort Inh) 160-4.5 Mcg/Act Aero 2 PUFF INH Q12HR, #1 INHALER 0 Refills Prov: Moni Gallo MD R2 12/15/16 Christiano Sparks MD Dec 13, 2016 12:16
[2016-12-13] MEDS ORDERED: ASPIRIN 81 MG CHEW TAB CHEW ONE (12:45)
[2016-12-13] MEDS ORDERED: SODIUM CHLORIDE 0.9% FLUSH 10 ML FLUSH IV FLUSH PRN ×2 (13:00→13:30)
--- NOTE | 2016-12-13 13:17 | HHI.HP ---
[facility] Service Family Medicine Primary Care Physician [facility] Admission Diagnosis NONSTEMI Diagnoses: International Travel<30 Days: No Contact w/Intl Traveler<30days: No Known Affected Area: No History of Present Illness Mr. Pritchett is a 76-year-old male with a past medical history of multiple MIs, COPD, and hypertension presenting with shortness of breath and confusion. The son states that this started on Sunday, 2 days ago, after he had right inguinal hernia repair in [facility] at the [facility]. He was immediately discharged after the procedure. When they got home the son noticed that his father was having a lot of confusion and "out of it". Over the course of the past 2 days he is more forgetful. He had also had increased heart rate to the 110 to 120s. Patient was also feeling warm and having chills. His thyroid checked his temperature which was afebrile. The patient also felt like "there was not enough air in the room. "His oxygen saturation went down to 70-80 % while he was on oxygen at home. The son also checked his blood pressure which she felt was low at 99/57. He also stated that he almost fainted several times. He felt dizzy and lightheaded. No chest pain, no shortness of breath, felt nauseous earlier today, but no vomiting. Has a chronic cough because of his COPD that is productive of clear sputum. The son called the surgeon at the [facility] today who advised him to come to the hospital. Review of Systems Constitutional: COMPLAINS OF: Fever, Chills, Dizziness, Change in appetite (no appetite), Night Sweats Eyes: DENIES: Blurred vision Ears, nose, mouth, throat: COMPLAINS OF: Tinnitus, Hearing loss (over the ), DENIES: Vertigo, Running Nose Respiratory: COMPLAINS OF: Cough (COPD), Sputum production (clear), Shortness of breath, DENIES: Hemoptysis Cardiovascular: COMPLAINS OF: Dyspnea on Exertion, PND, Orthopnea, DENIES: Chest pain, Palpitations, Lower Extremity Edema Gastrointestinal: COMPLAINS OF: Constipation (hasn't had a BM since the surgery ), Nausea, Difficulty Swallowing (started after the surgery), DENIES: Abdominal pain, Black stools, Bloody stools, Diarrhea, Vomiting Musculoskeletal: DENIES: Joint pain, Joint Swelling Integumentary: DENIES: Rash Hematologic/lymphatic: COMPLAINS OF: Bruising (since started taking aspirin) Neurologic: COMPLAINS OF: Poor Balance, DENIES: Headache, Paresthesias, Seizures Psychiatric: COMPLAINS OF: Confusion, DENIES: Anxiety, Depression Past Family Social History Past Medical History DM- diet controlled COPD- requires O2 previous MIs- no CP HTN Past Surgical History CAGB in 2012 tonsillectomy hernia repair 12/11/16 Reported Medications Reported Meds & Active Scripts Active Reported Lisinopril-Hctz 20-25 Mg Tab 1 Tab PO DAILY Hydrocodone-Acetaminophen 10-325 mg Tab 1 Tab PO Q6H PRN Simvastatin 5 Mg Tab 5 Mg PO DAILY Mucus Relief ER (Guaifenesin) 600 Mg Tab 1,200 Mg PO BID PRN Aspirin 81 Mg Chew 81 Mg CHEW ONCE Combivent Respimat Inh (Ipratropium-Albuterol Inh) 20-100 Nursing Home/Act Aero 1 Puff INH QID Symbicort Inh (Budesonide/Formoterol Fumarate) 160-4.5 Mcg/Act Aero 2 Puff INH Q12HR Proventil Hfa 6.7 GM Inh (Albuterol Sulfate) 90 Mcg/Act Aer 2 Puff INH Q4-6H PRN Allergies: Coded Allergies: No Known Allergies (Unverified , 08/18/16) Family History Father- of [place] at 60 Social History lives in [place], [place] lives alone 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 SKIN: No rashes, ecchymoses or lesions. Cool and dry. HEAD: Atraumatic. Normocephalic. No temporal or scalp tenderness. EYES: Pupils equal round and reactive. Extraocular motions intact. No scleral icterus. No injection or drainage. ENT: Nose without bleeding, purulent drainage or septal hematoma. Throat without erythema, tonsillar hypertrophy or exudate. Uvula midline. Airway patent. NECK: Trachea midline. No JVD or lymphadenopathy. Supple, nontender, no meningeal signs. CARDIOVASCULAR: Regular rate and rhythm without murmurs, gallops, or rubs. RESPIRATORY: Clear to auscultation. Breath sounds equal bilaterally. No wheezes , rales, or rhonchi. GASTROINTESTINAL: Abdomen soft, non-tender, nondistended. No hepato-splenomegaly , or palpable masses. No guarding. MUSCULOSKELETAL: Extremities without clubbing, cyanosis, or edema. No joint tenderness, effusion, or edema noted. No calf tenderness. Negative Homans sign bilaterally. NEUROLOGICAL: Awake and alert. Cranial nerves II through XII intact. Motor and sensory grossly within normal limits. Five out of 5 muscle strength in all muscle groups. Normal speech. Laboratory Laboratory Tests Test 12/13/16 11:12 White Blood Count 9.0 Red Blood Count 4.47 Hemoglobin 13.3 Hematocrit 40.2 Mean Corpuscular Volume 90.0 Mean Corpuscular Hemoglobin 29.8 Mean Corpuscular Hemoglobin Concent 33.1 Red Cell Distribution Width 15.0 Platelet Count 221 Mean Platelet Volume 7.9 Neutrophils (%) (Auto) 70.9 Lymphocytes (%) (Auto) 17.9 Monocytes (%) (Auto) 8.4 Eosinophils (%) (Auto) 2.6 Basophils (%) (Auto) 0.2 Neutrophils # (Auto) 6.4 Lymphocytes # (Auto) 1.6 Monocytes # (Auto) 0.8 Eosinophils # (Auto) 0.2 Basophils # (Auto) 0.0 CBC Comment DIFF FINAL Differential Comment Prothrombin Time 9.7 Prothromb Time International Ratio 0.9 Activated Partial Thromboplast Time 27.3 Blood Urea Nitrogen 21 Creatinine 1.29 Random Glucose 166 Total Protein 6.5 Albumin 3.2 Calcium Level 8.9 Alkaline Phosphatase 64 Aspartate Amino Transf (AST/SGOT) 14 Alanine Aminotransferase (ALT/SGPT) 16 Total Bilirubin 0.4 Sodium Level 134 Potassium Level 4.5 Chloride Level 97 Carbon Dioxide Level 31.4 Anion Gap 6 Estimat Glomerular Filtration Rate 54 Total Creatine Kinase 96 Troponin I 1.23 B-Type Natriuretic Peptide 189 Lipase 220 Result Diagram: 12/13/16 1112 12/13/16 1112 Imaging Last Impressions Chest X-Ray 12/13/16 1108 Signed Impressions: Service Date/Time: Tuesday, December 13, 2016 11:20 - CONCLUSION: 1. Marked hyperinflation characteristic of significant COPD, unchanged. 2. No acute infiltrate or effusion. MD Renan Torres VTE Risk Assessment [place] VTE Risk Assessment: Mod/High Risk (score >= 2) Caprini Risk Assessment Model Point Value = 1 Point Value = 2 Point Value = 3 Point Value = 5 Age 41-60 Minor surgery BMI > 25 kg/m2 Swollen legs Varicose veins or History of unexplained or recurrent spontaneous Oral contraceptives or hormone replacement Sepsis (< 1 month) Serious lung disease, including pneumonia (< 1 month) Abnormal pulmonary function Acute myocardial infarction Congestive heart failure (< 1 month) History of inflammatory bowel disease Medical patient at bed rest Age 61-74 Arthroscopic surgery Major open surgery (> 45 min) Laparoscopic surgery (> 45 min) Malignancy Confined to bed (> 72 hours) Immobilizing plaster cast Central venous access Age >= 75 History of VTE Family history of VTE Factor V Leiden Prothrombin [id number] Lupus anticoagulant Anticardiolipin antibodies Elevated serum homocysteine Heparin-induced thrombocytopenia Other congenital or acquired thrombophilia Stroke (< 1 month) Elective arthroplasty Hip, pelvis, or leg fracture Acute spinal cord injury (< 1 month) Prophylaxis Regimen Total Risk Factor Score Risk Level Prophylaxis Regimen 0-1 Low Early ambulation 2 Moderate Order ONE of the following: *Sequential Compression Device (SCD) *Heparin 5000 units SQ BID 3-4 Higher Order ONE of the following medications: *Heparin 5000 units SQ TID *Enoxaparin/Lovenox 40 mg SQ daily (WT < 150 kg, CrCl > 30 mL/min) *Enoxaparin/Lovenox 30 mg SQ daily (WT < 150 kg, CrCl > 10-29 mL/min) *Enoxaparin/Lovenox 30 mg SQ BID (WT < 150 kg, CrCl > 30 mL/min) AND/OR *Sequential Compression Device (SCD) 5 or more Highest Order ONE of the following medications: *Heparin 5000 units SQ TID (Preferred with Epidurals) *Enoxaparin/Lovenox 40 mg SQ daily (WT < 150 kg, CrCl > 30 mL/min) *Enoxaparin/Lovenox 30 mg SQ daily (WT < 150 kg, CrCl > 10-29 mL/min) *Enoxaparin/Lovenox 30 mg SQ BID (WT < 150 kg, CrCl > 30 mL/min) AND *Sequential Compression Device (SCD) Assessment and Plan Assessment and Plan Mr. Jefferson is a 76yoWM with a PMH of multiple MIs and a CABG who presents with confusion, tachycardia, and shortness of breath. Upon admission to the ED his troponin was elevated at 1.23. He is being admitted for ACS workup. Code Status Full code Discussed Condition With DSW Dr. Moni Gallo and Dr. Melina Batres Problem List: (1) ACS (acute coronary syndrome) ICD Codes: I24.9 - Acute ischemic heart disease, unspecified Status: Acute Plan: Patient's troponin at 1.23. He has a hx of multiple MIs without chest pain and had a CABG in 2011. NSTEMI vs PE (due to SOB, tachycardia, and low O2 sat) vs COPD exacerbation * EKG done in ED showed sinus tachycardia with occasional supraventricular premature complexes. Possible right ventricular conduction delay. ST deviation and moderate T-wave abnormality, consider anterior ischemia. Abnormal. * CTA ordered to rule out PE * Trend troponin with concurrent EKGs * Consulted cardiology, spoke with Dr. Franks in ED, appreciate recommendations * If CTA negative, will go for catheterization today * Make pt NPO * Start on Heparin drip (2) Multiple pulmonary nodules determined by computed tomography of lung ICD Codes: R91.8 - Other nonspecific abnormal finding of lung field Status: Acute Plan: CTA on 12/13 showed: LUNGS: There is an irregular margin solid lesion in the upper medial left lung devoid of air bronchograms measuring 1.3 x 0.6 cm. There is severe centrilobular emphysema in the upper lobes. There is a nodule in the medial right midlung measuring 5 mm, best seen on image #42. MEDIASTINUM: In the retrocrural region on the right side, there is a 1.5 cm nodule, incompletely included in the field of view; can not exclude retrocrural adenopathy. Low density lesion in the left lobe of the thyroid measuring 9 mm * Neurology recommends PET scan (3) COPD (chronic obstructive pulmonary disease) ICD Codes: J44.9 - Chronic obstructive pulmonary disease, unspecified Status: Chronic Plan: Pt with COPD. Has been having low O2 sats at home. On oxygen 2L at home. * Continue at home medications * Continue 2L O2 via [place] (4) Diabetes mellitus ICD Codes: E11.9 - Type 2 diabetes mellitus without complications Status: Chronic Plan: Patient is diet controlled at home. Will monitor and add sliding scale insulin if blood sugars are not controlled during his hospital stay. (5) Hypertension ICD Codes: I10 - Essential (primary) hypertension Status: Chronic Plan: * Continue at home medication (6) FEN Status: Acute Plan: Fluids: [tolerating PO/NS @ 100ml/hr] Electrolytes: monitor and replete as needed Nutrition: NPO DVT Prophylaxis: Heparin drip GI Prophylaxis: PRNs Physician Certification 2 Midnight Certification Type: Admission for Inpatient Services Order for Inpatient Services The services are ordered in accordance with Medicare regulations or non- Medicare payer requirements, as applicable. In the case of services not specified as inpatient-only, they are appropriately provided as inpatient services in accordance with the 2-midnight benchmark. Estimated LOS (days): 2 days is the estimated time the patient will need to remain in the hospital, assuming treatment plan goals are met and no additional complications. Post-Hospital Plan: Home Huma Ling MD R1 Dec 13, 2016 13:17
[2016-12-13] MEDS ORDERED: NITROGLYCERIN 0.4 MG SL 25 TABS/BTL SL PRN (13:30)
[2016-12-13] MEDS ORDERED: IOHEXOL 350 MG/ML 10 ML VIAL (for RAD DIAG) IVCONTRAST ONE (13:58)
[2016-12-13] MEDS ORDERED: MORPHINE SULFATE 4 MG/ML INJ IV PUSH PRN (14:30)
[2016-12-13] MEDS ORDERED: BISACODYL 10 MG SUPP RECTAL PRN (14:30)
[2016-12-13] MEDS ORDERED: ACETAMINOPHEN 325 MG TAB PO PRN (14:30)
[2016-12-13] MEDS ORDERED: SENNOSIDES 8.6 MG TAB PO PRN (14:30)
[2016-12-13] MEDS ORDERED: MAGNESIUM HYDROXIDE SUSP 30 ML CUP PO PRN (14:30)
[2016-12-13] MEDS ORDERED: ONDANSETRON HCL 4 MG/2 ML VIAL IVP PRN (14:30)
[2016-12-13] MEDS ORDERED: LACTULOSE SYRUP 20 GM/30 ML CUP PO PRN (14:30)
--- NOTE | 2016-12-13 15:26 | MB ---
cc: LATIA PAINTER DATE OF CONSULTATION: 12/13/2016 HISTORY OF PRESENT ILLNESS A 76-year-old white male with a history of three-vessel coronary artery bypass in 2011, recently underwent right inguinal hernia surgery at the [facility]. He developed nausea, confusion, hypoxemia, shortness of breath and tachycardia. He states he had similar symptoms prior to his bypass. He had presyncope, dizziness and lightheadedness. He has mild chest pressure as well. PAST MEDICAL HISTORY 1. Coronary artery disease; three-vessel bypass in 2011. 2. Diabetes mellitus, diet-controlled. 3. COPD on home oxygen. 4. Previous myocardial infarction. 5. Hypertension. 6. Tonsillectomy. 7. Hernia repair on 12/11/2016. MEDICATIONS 1. Lisinopril/hydrochlorothiazide. 2. Hydrocodone. 3. Acetaminophen. 4. Simvastatin. 5. Guaifenesin. 6. Baby aspirin. 7. Combivent. 8. Symbicort. 9. Proventil. ALLERGIES None. SOCIAL HISTORY The patient smoked about 45 years, one pack a day. He drinks wine 3-4 times a week. He is . He lives in [place]. He is accompanied by his son. FAMILY HISTORY Positive for heart disease in his father, who of a myocardial infarction at the age of 60. REVIEW OF SYSTEMS Otherwise negative. PHYSICAL EXAMINATION VITAL SIGNS: Blood pressure 115/58, pulse 110 and regular. HEENT: Negative. NECK: 2+ carotid upstrokes. No bruits. LUNGS: Clear. HEART: Regular with no murmur, gallop or rub. ABDOMEN: Soft. No bruits. EXTREMITIES: Without edema. 2+ distal pulses. NEUROLOGIC: Nonfocal. EKG EKG was reviewed. It showed sinus tachycardia and right bundle branch block. LABORATORY Hemoglobin 13.3. Potassium 4.5. Creatinine 1.3. AST and ALT normal. Troponin 1.23. CK 96. BNP 189. DIAGNOSIS 1. Elevated troponin, possible [id number] myocardial infarction. 2. Coronary artery disease, history of coronary bypass. 3. COPD, on home oxygen. 4. Hypertension. 5. Diabetes mellitus. 6. Previous history of smoking. DISPOSITION Mr. Jefferson will undergo chest CT angiogram to evaluate for pulmonary embolism. If negative, he likely has had a [id number] myocardial function and we will proceed with cardiac catheterization and coronary intervention if necessary. Will continue aggressive modification of his cardiac risk factors. This was discussed with the patient and his family and they understand the plan. MD WENDY Mcgee/ИВАН /2:43 PM /3:07 PM
[2016-12-13] MEDS ORDERED: HEPARIN SODIUM - IV 10,000 UNITS/10 ML VIAL IV PUSH ONE (15:30)
--- NOTE | 2016-12-13 15:39 | HHI.FPPN ---
Subjective Remarks Pt. seen, examined and discussed with the Med A team. This is a 76 yo with hx of multiple MIs, COPD and CABG who had right inguinal hernia repair on 12-11-16 at [place] in [facility] as OP under local anesthesia. He has been home and cared for by his son who lives nearby. Son accompanies him and is very concerned as pt. has been intermittently confused, with some dysequilibrium and dizziness, no appetite, some SOB with ambulation. Son thought he felt warm, has been carefully monitoring his hernia repair incision noting no redness or drainage. Today he was noted by son to have rapid heart rate, SOB and dizzy. Denies having chest pain. Son spoke with his surgeon who recommended he come to [facility] for evaluation. At the time he is seen, he is mildly confused re the date and sequence of events. Son is quite clear re his symptoms. See H&P for this admission for additional historical details including past, family, social history and ROS at the time of admission. Pt. is hesitant regarding many symptoms. He is X2, children in good health, father of [place] age 60. Hx of 45- 50 pack/years, on O2 at home chronically. 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 Objective Vitals Vital Signs Date Time Temp Pulse Resp B/P (MAP) Pulse Ox O2 Delivery O2 Flow Rate FiO2 12/13/16 14:48 104 20 104/55 (71) 94 Nasal Cannula 2.00 12/13/16 13:43 96 Nasal Cannula 2.00 12/13/16 11:32 92 Nasal Cannula 2.00 12/13/16 11:07 97.7 110 18 115/58 (77) 94 Result Diagram: 12/13/16 1112 12/13/16 1112 Other Results Laboratory Tests Test 12/13/16 11:12 White Blood Count 9.0 TH/MM3 Red Blood Count 4.47 MIL/MM3 Hemoglobin 13.3 GM/DL Hematocrit 40.2 % Mean Corpuscular Volume 90.0 FL Mean Corpuscular Hemoglobin 29.8 PG Mean Corpuscular Hemoglobin Concent 33.1 % Red Cell Distribution Width 15.0 % Platelet Count 221 TH/MM3 Mean Platelet Volume 7.9 FL Neutrophils (%) (Auto) 70.9 % Lymphocytes (%) (Auto) 17.9 % Monocytes (%) (Auto) 8.4 % Eosinophils (%) (Auto) 2.6 % Basophils (%) (Auto) 0.2 % Neutrophils # (Auto) 6.4 TH/MM3 Lymphocytes # (Auto) 1.6 TH/MM3 Monocytes # (Auto) 0.8 TH/MM3 Eosinophils # (Auto) 0.2 TH/MM3 Basophils # (Auto) 0.0 TH/MM3 CBC Comment DIFF FINAL Differential Comment Prothrombin Time 9.7 SEC Prothromb Time International Ratio 0.9 RATIO Activated Partial Thromboplast Time 27.3 SEC Blood Urea Nitrogen 21 MG/DL Creatinine 1.29 MG/DL Random Glucose 166 MG/DL Total Protein 6.5 GM/DL Albumin 3.2 GM/DL Calcium Level 8.9 MG/DL Alkaline Phosphatase 64 U/L Aspartate Amino Transf (AST/SGOT) 14 U/L Alanine Aminotransferase (ALT/SGPT) 16 U/L Total Bilirubin 0.4 MG/DL Sodium Level 134 MEQ/L Potassium Level 4.5 MEQ/L Chloride Level 97 MEQ/L Carbon Dioxide Level 31.4 MEQ/L Anion Gap 6 MEQ/L Estimat Glomerular Filtration Rate 54 ML/MIN Total Creatine Kinase 96 U/L Troponin I 1.23 NG/ML B-Type Natriuretic Peptide 189 PG/ML Lipase 220 U/L Imaging Last Impressions Chest X-Ray 12/13/16 1108 Signed Impressions: Service Date/Time: Tuesday, December 13, 2016 11:20 - CONCLUSION: 1. Marked hyperinflation characteristic of significant COPD, unchanged. 2. No acute infiltrate or effusion. Demian Dela Cruz MD Objective Remarks O. CONSTITUTIONAL/GEN: normally nourished, in NAD. Sitting comfortably on gurney. A little confused. EYES: conjunctiva normal, PERRLA, EOMI. ENT: Mouth and pharynx normal. Moist MM. NECK: supple LUNGS: clear A-P, respiratory effort is normal. CARDIOVASCULAR: RR without murmur or gallop. No significant edema. GI/ABD: soft without masses, without organomegaly. BS +. Healing incision right lower abdomen from recent hernia repair. : no CVA tenderness NEURO: No focal deficits. SKIN: color normal, no rashes noted. HEME/LYMPH: no bruising, petechia or significant adenopathy MUSC: back is normal in appearance. Extremities are normal in appearance. PSYCH/MENTAL STATUS: Mostly alert and oriented, relies on son for many answers. Abnormal EKG, elevated troponin. A/P Assessment and Plan 76 yo male with known COPD and hx several MIs (silent) and CABG with recent hernia repair exhibiting sx of confusion. dizziness, rapid heart rate and anorexia. Concern for NSTEMI. Cardiology consulted, CT angiogram pending. May need heart cath. Attending Attestation Patient seen and examined. Case reviewed and discussed with the resident team. Agree with plan of care as discussed with me and documented in the resident note. Melina Batres MD Dec 13, 2016 15:39
[2016-12-13] MEDS ORDERED: ALBUTEROL SULFATE 90 MCG/ACT HFA 8 GM INHALER INH PRN (15:45)
--- NOTE | 2016-12-13 15:50 | RADRPT ---
EXAM DATE/TIME: 12/13/2016 13:55 [facility] COMPARISON: No previous studies available for comparison. INDICATIONS : Surgery on Sunday, chest pain and shortness of breath since IV CONTRAST: 74 cc Omnipaque 350 (iohexol) IV RADIATION DOSE: 23.26 CTDIvol (mGy) MEDICAL HISTORY : Cardiovascular disease. Hypertension. Vasectomy SURGICAL HISTORY : CABG ENCOUNTER: Initial ACUITY: 3 days PAIN SCALE: 0/10 LOCATION: chest TECHNIQUE: Volumetric scanning of the chest was performed using a pulmonary embolism protocol MIP images were re constructed. Using automated exposure control and adjustment of the mA and/or kV according to patien t size, radiation dose was kept as low as reasonably achievable to obtain optimal diagnostic quality images. DICOM format image data is available electronically for review and comparison. Follow-up recommendations for detected pulmonary nodules are based at a minimum on nodule size and pa tient risk factors according to Fleischner Society Guidelines. FINDINGS: PULMONARY ARTERIES: No filling defects are seen in the pulmonary arteries through the segmental level. LUNGS: There is an irregular margin solid lesion in the upper medial left lung devoid of air bronchograms me asuring 1.3 x 0.6 cm. There is severe centrilobular emphysema in the upper lobes. There is a nodule in the medial right midlung measuring 5 mm, best seen on image #42. PLEURAE: There is no pleural thickening or pleural effusion. MEDIASTINUM: There is good visualization of the great vessels of the middle mediastinum. No evidence of mediastin al or hilar adenopathy/mass. In the retrocrural region on the right side, there is a 1.5 cm nodule, incompletely included in the field of view; can not exclude retrocrural adenopathy. MISCELLANEOUS: Low density lesion in the left lobe of the thyroid measuring 9 mm. Evidence of prior median sternoto my. CONCLUSION: 1. The study is negative for pulmonary embolism. 2. Irregular margin 1.2 cm left upper lobe lesion and 5 mm nodule right lung superimposed upon severe emphysema. No considerable performing outpatient PET/CT scan to evaluate for metabolic activity and to help in decision making regarding possible biopsy. Bill Bailon MD on December 13, 2016 at 15:37 Board Certified Radiologist. This report was verified electronically.
[2016-12-13] MEDS ORDERED: HEPARIN-D5W 25,000 U/250 ML 250 ML IV PRN (16:00)
[2016-12-13] MEDS ORDERED: HEPARIN-NS/PF INJ 500 ML ONE (16:38)
[2016-12-13] MEDS ORDERED: MIDAZOLAM HCL 2 MG/2 ML VIAL ONE (16:38)
[2016-12-13] MEDS ORDERED: HEPARIN SODIUM - IV 10,000 UNITS/10 ML VIAL ONE (16:39)
[2016-12-13] MEDS ORDERED: NITROGLYCERIN INJ 0 ML ONE (16:39)
--- NOTE | 2016-12-13 17:41 | CATHPROC ---
[employer] HIS Report Study Information Study Number Admission Scheduled Start Study Start [id number] Dec 13 2016 12:35PM 12/13/2016 Dec 13 2016 4:25PM [place] [facility] Cardiac Catheterization Admit Source Facility Department Emergency department [facility] - Dental Office Assistant Physician and Clinical Staff Initial Alan Leone Co Founder And Chief Strategy Officer Melissa Britton,RN Co Founder And Chief Strategy Officer Сергей Agrawal,BERNARDA Recorder Nicolle Rosen RCIS TECH2 Recorder Zully De Leon,(R) (BS) Scrub Haja Wells RCIS(BS) Procedures Performed Procedure Location (Site) Vessel Name Angiogram LV LV Ventricle Coronary Angiograms LCA Left Coronary Coronary Angiograms RCA Right Coronary Coronary Angiograms SOLORZANO-LAD Left Coronary Coronary Angiograms SVG-RCA Right Coronary Coronary Angiograms SOLORZANO SOLORZANO L Heart Cath Wire insertion Fem Art (right) Femoral Art Equipment Time Pickle Water Pump Operator Description Size Mfg Part Number Used/Scraped TRANSDUCER, TRUWAVE [id number] 16:27 [employer] * Used W/STOCKCOCK *[id number] 534-548T *[id number] [id number] *[id number] 534-520T *[id number] [id number] *[id number] 16:27 [employer] PACK, CCL CUSTOM * Used *[id number] 16:27 MEDLINE PACER PEN, SKIN DUAL W/ RULER * Used *[id number] WIRE, WHOLEY .035 MOD-J 145 [id number] 17:04 [employer] 145CM Used CM *[id number] 16:27 [employer] MEDICAL WIRE, 3MMJ .035 180CM 180CM Used *[id number] PROBE COVER, STERILE [id number] 16:27 [employer] * Used ULTRASOUND W/ GEL *[id number] 16:27 NAMIC MANIFOLD, 4 PORT * Used *[id number] 16:27 NAMIC TUBING, HIGH PRESSURE 48" 48" Used *[id number] 16:27 [employer] OMNIPAQUE, 350 MG, 150ML 150ML [id number] Used [id number] 16:27 [employer]IS MEDICAL BLANKET,WARM AIR CCL * Used *[id number] 16:27 TERUMO MEDICAL SHEATH, FR5 TERUMO (10CM) FR 5 Used *[id number] History: Current Medications Medication Dosage/Unit Route Frequency Last Date/Time Taken LISINOPRIL Statins (any) ASA History: Allergies Allergy Reaction No Known Allergies History: Risk Factors Family History of Hypertension Dyslipidemia Previous NC Previous Heart Failure Premature CAD Yes Yes Yes Yes No Prior Valve Prior PCI Prior CABG Prior CABGDate Surgery No No Yes 11/19/2010 Cerebrovascular Peripheral Artery Chronic Lung On Dialysis Diabetes Diabetes Therapy Disease Disease Disease No No No Yes Yes Diet History: Symptoms/Diagnosis Selection Items SOB History: Stress Tests Stress or Imaging Studies Performed No History: Other Current Smoker Method Quit Packs a Day Years Used Pack Years No Cigarettes 4 Years Ago 1 45 45 Labs Hgb (g/dl) Hct (%) RBC (MIL/MM3) WBC (l/cumm) Platelets (thousands) 11.60-17.00 35.00-51.00 4.00-5.90 4.00-11.00 150.00-450.00 13.3 40.2 4.4 9 211 Glucose (mg/dl) BUN (mg/dl) Creatinine (mg/dl) BUN:Creatinine (1:x) 74.00-106.00 7.00-18.00 0.50-1.30 10.00-20.00 166 21 1.2 17.5 Na (meq/l) K (meq/l) Cl (meq/l) CO2 (mmol/L) Ca (mg/dl) 136.00-145.00 3.50-5.10 98.00-107.00 21.00-32.00 8.50-10.10 134 4.5 97 31.4 8.9 PT (sec) PTT (sec) INR (PTT:PT) 9.80-11.60 24.30-30.10 0.90-1.10 9.7 27.3 0.9 Troponin I (ng/ml) CPK (u/l) CPK-MB (ng/ML) 0.02-0.05 26.00-308.00 0.50-3.60 1.23 96 Not Drawn Medication Medication Total Dose (Bolus/Oral) Medication Total Dosage/Unit 1% XYLOCAINE 20 mL FENTANYL 50 mcg VERSED 1 mg Medications (Bolus/Oral) Medication Time Given Dosage/Unit Administered By Reason VERSED 12/13/2016 5:00:32 PM 1 mg Melissa Britton 1 mg VERSED given in lab by Melissa Britton, BENRARDA in Right Antecubital via Peripheral IV. FENTANYL 12/13/2016 5:00:39 PM 50 mcg Melissa Britton 50 mcg FENTANYL given in lab by Melissa Britton RN in Right Antecubital via Peripheral IV. 1% XYLOCAINE 12/13/2016 5:02:37 PM 20 mL Haja Wells 20 mL 1% XYLOCAINE given in lab by Haja Wells RCIS(DAVID) in Right Groin via Subcutaneous. Medication (Drip) Medication Time Given Dosage/Unit Concentration/Unit Diluent (ml) Solution IV Solutions 12/13/2016 4:47:57 PM 0 mL (IV) 500 NaCl .9 IV Solutions given in lab by Melissa Britton RN in Right Antecubital via Peripheral IV. Pump/Drip Fl ow = 50 ml/hr using NaCl .9. Initial Case Assessment Cardiovascular HR Rhythm Chest Pain 88 reg 0 Edema Present Skin color Skin None Normal Warm Dry Circulatory - Right Pulses Dorsalis Pedis Femoral 1 2 Scale (0,1,2,3,4,d) Circulatory - Left Pulses Dorsalis Pedis Femoral 1 2 Scale (0,1,2,3,4,d) Circulatory - Lower Extremities Color Lower Right Color Lower Left Normal Normal Neurological State Oriented to time-place- Alert Moves all extremities person Respiration - General Respiration Rate SpO2 (%) O2 (lpm) (B/min) 20 96 2 Chronological Log Time Study Chronological Log 16:32:22 Patient arrived via Bed. 16:32:23 Patient Name, D.O.B, / Armband Verified By R.N. 16:32:24 Consent signed by the physician and the patient and verified by the Dental Office Assistant staff. 16:32:25 Pre-op and post- op instructions given; patient acknowledges understanding of instructions. 16:32:26 Verbal Stimulation=2 Physical Stimulation=2 Airway=2 Respiration=2 TOTAL=8. (0=absent, 1=li mited, 2=present) 16:32:27 Presedation assessment performed by Dental Office Assistant RN. 16:32:29 Patient has been NPO for More than 6Hrs. 16:32:30 Skin Breakdown surgical incision site RLQ Vitals capture started with the following parameters, Patient=Adult, Interval=5 min, Initial Pr qhrcsv=914 mmHg, 16:38:12 Deflation Rate=5 mmHg, Cuff placed on Right Arm 16:38:51 IWPW=144/66 mmhg, SpO2=91.0 %, Resp=12 B/min, Pain=0, Greta=10, Willoughby=2 16:43:44 HR=87 bpm, KQCE=541/61 mmhg, SpO2=93.0 %, Resp=18 B/min, Pain=0, Greta=10, Willoughby=2 16:46:10 Bilateral groins prepped with 2% chlorhexidine, and draped after a 3 minute waiting time. 16:47:54 Patient Warmer Placed on the Table. 16:47:55 Julieth Prominences Protected 16:47:56 A # 20 IV was noted in the Antecubital (right). Grade = 0 16:47:57 A # 20 IV was noted in the Antecubital (left). Grade = 0 IV Solutions given in lab by Melissa Britton RN in Right Antecubital via Peripheral IV. Pump/D rip Flow = 50 ml/hr 16:47:57 using NaCl .9. 16:47:59 History and physical on the chart or being dictated. Assessment: Initial Case, HR=88 BPM, Rhythm=reg, Chest Pain=0, Edema=None, Color=Normal, Skin = Warm, Dry Right Pulses: Matt Ped=1, Femoral=2 Left Pulses: Matt Ped=1, Femoral=2 16:48:01 Lower Right Extremities: Color=Normal Lower Left Extremities: Color=Normal Neurological: State=Alert, Ox3, DELGADO Respiration: Resp=20 B/min, SpO2=96 %, O2=2 lpm 16:49:18 HR=88 bpm, UNPA=104/69 mmhg, SpO2=96.0 %, Resp=33 B/min, Pain=0, Greta=10, Willoughby=2 16:52:03 MD paged 16:52:46 Reference ECG taken 16:52:53 Pressure channel 1 zeroed. 16:53:46 HR=91 bpm, OTQV=412/70 mmhg, SpO2=96.0 %, Resp=19 B/min, Pain=0, Greta=10, Willoughby=2 16:57:09 MD arrived 16:58:45 HR=88 bpm, EWJN=938/63 mmhg, SpO2=95.0 %, Resp=16 B/min, Pain=0, Greta=10, Willoughby=2 17:00:32 1 mg VERSED given in lab by Melissa Britton, RN in Right Antecubital via Peripheral IV. 17:00:39 50 mcg FENTANYL given in lab by Melissa Britton, BERNARDA in Right Antecubital via Peripheral IV. Time Out. Correct patient, correct procedure, correct physician, power injector loaded with con trast with surgical team 17:01:56 present. Time Out Concurred by MD and individual staff in procedure. 17:02:15 Case Start 17:02:37 20 mL 1% XYLOCAINE given in lab by Haja Wells RCIS(BS) in Right Groin via Subcutaneou s. 17:03:36 Access site was Right Femoral Artery using ultrasound 17:03:46 PP=952 bpm, NIBP=89/56 mmhg, SpO2=86.0 %, Resp=11 B/min, Pain=0, Greta=10, Willoughby=2 17:03:56 A WIRE, WHOLEPraveen .035 MOD-J 145 CM 145CM was inserted via Fem Art (right). 17:04:09 A SHEATH, FR5 TERUMO (10CM) FR 5 was advanced into the Fem Art (right) using the Percutaneo us technique. A PIGTAIL ANG. INFINITI CATHETER FR 5 was advanced over a wire. OMNIPAQUE, 350 MG, 150ML 150ML was used 17:06:21 for injections. Recorded Pressure: LV, HR=81, Condition=Condition 1 17:07:22 (Left Ventricle) LV 80/0/6 17:08:41 The LV was injected at 10 cc/sec for a total of 30. OMNIPAQUE, 350 MG, 150ML 150ML used. 17:08:41 HR=70 bpm, NIBP=96/66 mmhg, SpO2=96.0 %, Resp=16 B/min, Pain=0, Greta=10, Willoughby=2 Recorded Pressure: LV, Ao, HR=80, Condition=Condition 1 17:08:50 (Left Ventricle) LV 80/4/6, (Aorta) Ao 68/24/43 After removing the current catheter a JL 4.0 INFINITI CATHETER FR 5 was advanced over a WIRE, W HOLEY .035 MOD- 17:09:19 J 145 CM 145CM. 17:11:22 The LCA was injected and visualized at various angles. OMNIPAQUE, 350 MG, 150ML 150ML used . Recorded Pressure: Ao, HR=87, Condition=Condition 1 17:11:39 (Aorta) Ao 81/41/58 After removing the current catheter a AR MOD INFINITI CATHETER FR 5 was advanced over a WIRE, W HOLEY .035 17:13:18 MOD-J 145 CM 145CM. 17:13:42 LY=056 bpm, NIBP=94/60 mmhg, SpO2=95.0 %, Resp=18 B/min, Pain=0, Greta=10, Willoughby=2 17:15:48 The SOLORZANO was injected and visualized at various angles. OMNIPAQUE, 350 MG, 150ML 150ML used . 17:17:25 Ventricular Fibrillation noted. 17:17:30 Patient defibrillated at 200 joules. The ECG rhythm was noted as V-Fib. 17:18:40 The SVG-RCA was injected and visualized at various angles. OMNIPAQUE, 350 MG, 150ML 150ML u sed. 17:18:44 VN=143 bpm, FVVV=243/72 mmhg, SpO2=99.0 %, Resp=18 B/min, Pain=0, Greta=10, Willoughby=2 17:20:33 The RCA was injected and visualized at various angles. OMNIPAQUE, 350 MG, 150ML 150ML used . After removing the current catheter a SHAINA INFINITI CATHETER FR 5 was advanced over a WIRE, WHOL EY .035 MOD-J 17:21:47 145 CM 145CM. 17:23:49 UE=082 bpm, NIBP=97/62 mmhg, SpO2=77.0 %, Resp=19 B/min, Pain=0, Greta=10, Willoughby=2 17:24:03 The SOLORZANO-LAD was injected and visualized at various angles. OMNIPAQUE, 350 MG, 150ML 150ML used. 17:25:51 Catheter was removed 17:25:57 Case End 17:26:52 Catheter(s) removed without difficulty 17:27:00 No case complications noted. 17:27:04 Cine recording checked. 17:27:18 Bedside Report will be given. 17:27:43 Contrast Scanned 17:27:46 A Left Heart Cath was performed. 17:28:48 BI=317 bpm, NIBP=92/55 mmhg, SpO2=97.0 %, Resp=19 B/min, Pain=0, Greta=10, Willoughby=2 17:33:47 SE=486 bpm, NIBP=87/59 mmhg, SpO2=99.0 %, Resp=21 B/min, Pain=0, Greta=10, [place]oughby=2 17:33:53 CIC called. Advised sheath will be pulled in room. 17:36:25 Sterile dressing applied to site 17:38:50 NIBP=89/44 mmhg, SpO2=95.0 %, Pain=0, Greta=10, Willuoghby=2 17:40:13 Vitals capture stopped. 17:40:38 Patient moved to stretcher End Study - Contrast Media Used In Study Contrast Total Opened (mL) Total Used (mL) Total Wasted (mL) Omnipaque 155 155 0 End Study - Maximum Contrast Load Max Contrast Load (mL) 258.3 End Study - Radiation Exposure Fluoro Time (minutes) 5.9 End Study - Patient Disposition Complications Transferred To Interventional Outcome No Telemetry Bed No attempt made
[2016-12-13] MEDS ORDERED: NON-FORMULARY DRUG (Ipratropium-Albuterol Inh (Combivent Respimat Inh) 1 PUFF) INH SCH (18:00)
[2016-12-13] MEDS: ALBUTEROL SULFATE 90 MCG/ACT HFA 8 GM INHALER INH SCH ×2 (18:00→21:00)
[2016-12-13] MEDS ORDERED: ATORVASTATIN 10 MG TAB PO SCH (21:00)
[2016-12-13] MEDS ORDERED: SODIUM CHLORIDE 0.9% FLUSH 10 ML FLUSH IV FLUSH SCH (21:00)
[2016-12-13] MEDS: BUDESONIDE-FORMOTEROL 160/4.5 MCG INHALER INH SCH (21:08)
[2016-12-13] MEDS: DOCUSATE SODIUM 50 MG/SENNA 8.6 MG TAB PO SCH (21:09)
[2016-12-13] MEDS: SODIUM CHLORIDE 0.9% FLUSH 10 ML FLUSH IV FLUSH SCH (21:09)
[2016-12-13 21:57] LABS: APTT (PATIENT) 29.4 SEC (24.3-30.1)
[2016-12-13 22:19] LABS: CREATINE KINASE 111 U/L (39-308); HDL CHOLESTEROL 71.6 MG/DL (40.0-60.0); LDL CHOLESTEROL 44 MG/DL (0-99)
[2016-12-13 22:35] LABS: CKMB 10.8 NG/ML (0.5-3.6)
[2016-12-14] VITALS (18 sets, daily range): BP systolic 127–155; BP diastolic 66–83; PULSE 86–107; RESP 18–19; TEMP 97.1–98.2; O2SAT 96–99
[2016-12-14 02:45] LABS: AUTOMATED NEUTROPHIL # 4.6 TH/MM3 (1.8-7.7); BASOPHIL % 0.3 % (0.0-2.0); EOSINOPHIL # 0.3 TH/MM3 (0-0.4); EOSINOPHIL % 5.1 % (0.0-4.0); HEMATOCRIT 36.4 % (39.0-51.0); HEMO FLAGS DIFF FINAL; LYMPH % 14.7 % (9.0-44.0); MEAN CELL VOLUME 89.2 FL (80.0-100.0); MEAN CORPUSCULAR HEMOGLOBIN 29.3 PG (27.0-34.0); MEAN CORPUSCULAR HGB CONC 32.9 % (32.0-36.0); MONO % 8.3 % (0.0-8.0); NEUT % 71.6 % (16.0-70.0); PLATELET COUNT 193 TH/MM3 (150-450); RED BLOOD COUNT 4.08 MIL/MM3 (4.50-5.90); RED CELL DISTRIBUTION WIDTH 14.7 % (11.6-17.2); WHITE BLOOD COUNT 6.5 TH/MM3 (4.0-11.0)
[2016-12-14 03:01] LABS: ALT (GPT) 15 U/L (12-78); ANION GAP 6 MEQ/L (5-15); AST (GOT) 18 U/L (15-37); BICARBONATE 28.3 MEQ/L (21.0-32.0); BLOOD UREA NITROGEN 19 MG/DL (7-18); CHLORIDE 102 MEQ/L (98-107); GLOMERULAR FILTRATION RATE 83 ML/MIN (>89); POTASSIUM 4.3 MEQ/L (3.5-5.1); SODIUM (NA) 136 MEQ/L (136-145)
[2016-12-14 03:05] LABS: ALKALINE PHOSPHATASE 55 U/L (45-117); CREATINE KINASE 110 U/L (39-308); TOTAL BILIRUBIN ADULT 0.4 MG/DL (0.2-1.0)
[2016-12-14 03:32] LABS: CKMB 9.9 NG/ML (0.5-3.6)
[2016-12-14] MEDS ORDERED: IOHEXOL 350 MG/ML 100 ML BTL (for Cath Lab) OTHER ONE (08:22)
[2016-12-14] MEDS: HYDROCHLOROTHIAZIDE 25 MG TAB PO SCH (08:41)
[2016-12-14] MEDS: DOCUSATE SODIUM 50 MG/SENNA 8.6 MG TAB PO SCH ×2 (08:42→21:12)
[2016-12-14] MEDS: LISINOPRIL 20 MG TAB PO SCH (08:42)
[2016-12-14] MEDS: BUDESONIDE-FORMOTEROL 160/4.5 MCG INHALER INH SCH ×2 (08:42→21:11)
[2016-12-14] MEDS: PRAVASTATIN SOD 10 MG TAB PO SCH (08:42)
[2016-12-14] MEDS: SODIUM CHLORIDE 0.9% FLUSH 10 ML FLUSH IV FLUSH SCH ×2 (08:42→21:12)
[2016-12-14] MEDS: TIOTROPIUM BROMIDE 18 MCG INH INH SCH (08:42)
[2016-12-14] MEDS: ALBUTEROL SULFATE 90 MCG/ACT HFA 8 GM INHALER INH SCH (08:43)
[2016-12-14] MEDS ORDERED: NON-FORMULARY DRUG (Lisinopril-Hctz 1 TAB) PO SCH (09:00)
--- NOTE | 2016-12-14 10:30 | MA ---
cc: LATIA PAINTER DATE: 12/13/2016 INDICATION [id number] myocardial infarction, coronary artery disease, history of three-vessel coronary bypass. PROCEDURE PERFORMED 1. Retrograde left heart catheterization with left ventriculography, selective coronary angiography, saphenous venous graft angiography and left internal mammary artery angiography. 2. Moderate sedation. ACCESS SITE Right femoral artery. EQUIPMENT USED 5-Andorran pigtail catheter, 5-Andorran JL-4 and AR modified coronary artery catheters, left internal mammary artery catheter. MEDICATIONS Versed IV. Fentanyl IV. CONTRAST Omnipaque 155 ccs. COMPLICATIONS None. BLOOD LOSS Less than 10 ccs. METHOD OF HEMOSTASIS Manual compression. RESULTS HEMODYNAMICS Heart rate 75 beats per minute. Left end-diastolic pressure ___ Left ventricle __ /5. Aorta 90/41/58. LEFT VENTRICULOGRAPHY Ejection fraction 60%. Wall motion normal. No mitral regurgitation. CORONARY ANGIOGRAPHY The left main coronary is patent. Left anterior descending artery is totally occluded at its ostium. Mid to distal LAD is patent. First diagonal artery is patent and both LAD and diagonal are supplied by SOLORZANO. Left circumflex artery is nondominant vessel with 90% stenosis of the proximal portion and 90% stenosis in the midportion distally to a first marginal branch. OM1 is patent and there is competitive flow with vein graft. Right coronary artery is a dominant vessel which is totally occluded in the midportion. Saphenous venous graft to the first obtuse marginal artery has 30% proximal stenosis. Saphenous venous graft to the posterior descending artery is widely patent. Left subclavian artery is patent. Left internal mammary artery graft to left anterior descending artery is patent. DIAGNOSIS 1. Coronary artery disease with patent three out of three grafts. 2. Preserved left ventricular systolic function. DISPOSITION Mr. Jefferson will be monitored on telemetry after the procedure. He can be reassured about his cardiac status. All of his three grafts are patent and his left ventricular function is preserved. I will see him back for followup in our office after discharge. MD WENDY Mcgee/TAPANL /5:40 PM /10:03 AM
--- NOTE | 2016-12-14 12:14 | HHI.DCPOC ---
Discharge Care Plan Diagnosis: (1) ACS (acute coronary syndrome) (2) Multiple pulmonary nodules determined by computed tomography of lung (3) HTN (hypertension) (4) CAD (coronary artery disease) Goals to Promote Your Health * To prevent worsening of your condition and complications * To maintain your health at the optimal level Directions to Meet Your Goals Take your medications as prescribed Follow your dietary instruction Follow activity as directed Keep your appointments as scheduled Take your immunizations and boosters as scheduled If your symptoms worsen call your PCP, if no PCP go to Urgent Care Center or Emergency Room Smoking is Dangerous to Your Health. Avoid second hand smoke Call the 24-hour hour crisis hotline for domestic abuse at Moni Gallo MD R2 Dec 14, 2016 12:14
[2016-12-14] MEDS: RESP: ALBUTEROL 2.5 MG/3 ML NEB (SCH) NEB ×2 (12:23→22:25)
--- NOTE | 2016-12-14 12:51 | PD.CARD.PN ---
Subjective Subjective Remarks No CP, mild SOB, no dizziness; cath with patent 3/3 grafts and nl LV fx; now in a fib w RVR Objective Medications Current Medications Medications (Trade) Dose Ordered Sig/Andrew Route Start Time Stop Time Status Last Admin (NS Flush) 2 ml UNSCH PRN IV FLUSH 12/13/16 13:00 (NS Flush) 2 ml BID IV FLUSH 12/13/16 21:00 12/14/16 08:42 (Nitrostat Sl) 0.4 mg Q5M PRN SL 12/13/16 13:30 (Lipitor) 10 mg HS PO 12/13/16 21:00 12/13/16 21:09 Heparin Sodium/ Dextrose 250 ml @ 7 mls/hr TITRATE PRN IV 12/13/16 16:00 (Tylenol) 650 mg Q4H PRN PO 12/13/16 14:30 (Zofran Inj) 4 mg Q6H PRN IVP 12/13/16 14:30 (Reema-Colace) 1 tab BID PO 12/13/16 21:00 12/14/16 08:42 (Milk Of Magnesia Liq) 30 ml Q12H PRN PO 12/13/16 14:30 (Senokot) 17.2 mg Q12H PRN PO 12/13/16 14:30 (Dulcolax Supp) 10 mg DAILY PRN RECTAL 12/13/16 14:30 (Lactulose Liq) 30 ml DAILY PRN PO 12/13/16 14:30 12/14/16 08:41 (Morphine Inj) 2 mg Q30M PRN IV PUSH 12/13/16 14:30 (Symbicort 160-4.5 Inh) 2 puff Q12HR INH 12/13/16 21:00 12/14/16 08:42 (Pravachol) 10 mg DAILY PO 12/14/16 09:00 12/14/16 08:42 (Spiriva Inh) 18 mcg DAILY INH 12/14/16 09:00 12/14/16 08:42 (Prinivil) 20 mg DAILY PO 12/14/16 09:00 12/14/16 08:42 (Hydrodiuril) 25 mg DAILY PO 12/14/16 09:00 12/14/16 08:41 (Albuterol Neb) 2.5 mg Q4HR NEB NEB 12/14/16 12:00 12/14/16 12:23 Vital Signs / I&O Vital Signs Date Time Temp Pulse Resp B/P (MAP) Pulse Ox O2 Delivery O2 Flow Rate FiO2 12/14/16 12:00 94 12/14/16 12:00 98.1 97 18 127/73 (91) 99 12/14/16 11:00 92 12/14/16 10:00 94 12/14/16 09:00 102 12/14/16 08:56 97 Nasal Cannula 2.00 12/14/16 08:00 98.2 107 18 143/83 (103) 97 12/14/16 08:00 99 12/14/16 07:00 94 12/14/16 06:00 98 12/14/16 05:00 90 12/14/16 04:00 98 12/14/16 03:41 97.1 93 18 131/71 (91) 96 12/14/16 03:00 88 12/14/16 02:00 91 12/14/16 01:00 86 12/14/16 00:00 96 12/13/16 23:00 92 12/13/16 23:00 98.1 92 18 111/66 (81) 96 12/13/16 22:00 95 12/13/16 21:00 96 12/13/16 20:00 90 12/13/16 19:30 98.1 123 18 90/65 (73) 96 12/13/16 19:00 99 12/13/16 18:30 98.6 120 18 92/64 (73) 96 12/13/16 16:28 12/13/16 16:00 90 20 95/51 (66) 97 Nasal Cannula 2.00 12/13/16 14:48 104 20 104/55 (71) 94 Nasal Cannula 2.00 12/13/16 13:43 96 Nasal Cannula 2.00 I/O 12/13/16 12/13/16 12/13/16 12/14/16 12/14/16 12/14/16 07:00 15:00 23:00 07:00 15:00 23:00 Intake Total 240 ml Output Total 425 ml Balance -185 ml Intake Oral 240 ml Output Urine Total 425 ml # Bowel Movements 0 Physical Exam GENERAL: In NAD SKIN: Warm and dry. HEAD: Normocephalic. EYES: No scleral icterus. No injection or drainage. NECK: Supple, trachea midline. No JVD or lymphadenopathy. CARDIOVASCULAR: Irregular rate and rhythm, without murmurs, gallops, or rubs. RESPIRATORY: Breath sounds equal bilaterally. No accessory muscle use. GASTROINTESTINAL: Abdomen soft, non-tender, nondistended. MUSCULOSKELETAL: No cyanosis, or edema. Groin stable Laboratory Laboratory Tests Test 12/13/16 20:48 12/14/16 02:29 Activated Partial Thromboplast Time 29.4 SEC Total Creatine Kinase 111 U/L 110 U/L Creatine Kinase MB 10.8 NG/ML 9.9 NG/ML Troponin I 1.57 NG/ML 1.61 NG/ML Triglycerides Level 75 MG/DL Cholesterol Level 131 MG/DL LDL Cholesterol 44 MG/DL HDL Cholesterol 71.6 MG/DL Cholesterol/HDL Ratio 1.82 RATIO Thyroid Stimulating Hormone 3rd Gen 0.539 uIU/ML White Blood Count 6.5 TH/MM3 Red Blood Count 4.08 MIL/MM3 Hemoglobin 12.0 GM/DL Hematocrit 36.4 % Mean Corpuscular Volume 89.2 FL Mean Corpuscular Hemoglobin 29.3 PG Mean Corpuscular Hemoglobin Concent 32.9 % Red Cell Distribution Width 14.7 % Platelet Count 193 TH/MM3 Mean Platelet Volume 7.7 FL Neutrophils (%) (Auto) 71.6 % Lymphocytes (%) (Auto) 14.7 % Monocytes (%) (Auto) 8.3 % Eosinophils (%) (Auto) 5.1 % Basophils (%) (Auto) 0.3 % Neutrophils # (Auto) 4.6 TH/MM3 Lymphocytes # (Auto) 1.0 TH/MM3 Monocytes # (Auto) 0.5 TH/MM3 Eosinophils # (Auto) 0.3 TH/MM3 Basophils # (Auto) 0.0 TH/MM3 CBC Comment DIFF FINAL Differential Comment Blood Urea Nitrogen 19 MG/DL Creatinine 0.89 MG/DL Random Glucose 87 MG/DL Total Protein 5.6 GM/DL Albumin 2.7 GM/DL Calcium Level 8.4 MG/DL Alkaline Phosphatase 55 U/L Aspartate Amino Transf (AST/SGOT) 18 U/L Alanine Aminotransferase (ALT/SGPT) 15 U/L Total Bilirubin 0.4 MG/DL Sodium Level 136 MEQ/L Potassium Level 4.3 MEQ/L Chloride Level 102 MEQ/L Carbon Dioxide Level 28.3 MEQ/L Anion Gap 6 MEQ/L Estimat Glomerular Filtration Rate 83 ML/MIN Assessment and Plan Problem List: (1) CAD (coronary artery disease) ICD Codes: I25.10 - Atherosclerotic heart disease of [place] coronary artery without angina pectoris Status: Acute (2) Hx of CABG ICD Codes: Z95.1 - Presence of aortocoronary bypass graft (3) HTN (hypertension) ICD Codes: I10 - Essential (primary) hypertension Status: Acute (4) Diabetes mellitus ICD Codes: E11.9 - Type 2 diabetes mellitus without complications Status: Chronic (5) COPD (chronic obstructive pulmonary disease) ICD Codes: J44.9 - Chronic obstructive pulmonary disease, unspecified Status: Chronic (6) Atrial fibrillation ICD Codes: I48.91 - Unspecified atrial fibrillation Assessment and Plan Add long-acting diltiazem for a fib rate control. Start anticoagulation with Xarelto 20 mg daily, stop heparin. Continue monitoring on tele. Increase activity. Cath yest with 3/3 grafts patent and nl LV fx. Alan Franks MD Dec 14, 2016 12:51
--- NOTE | 2016-12-14 13:05 | HHI.FPPN ---
Subjective Remarks Patient was seen and examined this morning. No acute overnight events. Patient is status post cardiac catheterization yesterday, and he is noted to have an arrhythmia during the procedure requiring defibrillation but no events thereafter. He is asymptomatic today and denies chest pain. He ambulated to the bathroom with assistance without difficulty today. He denies shortness of breath but is using nasal cannula. He requests albuterol nebulizers instead of an inhaler this morning. (Moni Gallo MD R2) Objective Vitals Vital Signs Date Time Temp Pulse Resp B/P (MAP) Pulse Ox O2 Delivery O2 Flow Rate FiO2 12/14/16 12:00 94 12/14/16 12:00 98.1 97 18 127/73 (91) 99 12/14/16 11:00 92 12/14/16 10:00 94 12/14/16 09:00 102 12/14/16 08:56 97 Nasal Cannula 2.00 12/14/16 08:00 98.2 107 18 143/83 (103) 97 12/14/16 08:00 99 12/14/16 07:00 94 12/14/16 06:00 98 12/14/16 05:00 90 12/14/16 04:00 98 12/14/16 03:41 97.1 93 18 131/71 (91) 96 12/14/16 03:00 88 12/14/16 02:00 91 12/14/16 01:00 86 12/14/16 00:00 96 12/13/16 23:00 92 12/13/16 23:00 98.1 92 18 111/66 (81) 96 12/13/16 22:00 95 12/13/16 21:00 96 12/13/16 20:00 90 12/13/16 19:30 98.1 123 18 90/65 (73) 96 12/13/16 19:00 99 12/13/16 18:30 98.6 120 18 92/64 (73) 96 12/13/16 16:28 12/13/16 16:00 90 20 95/51 (66) 97 Nasal Cannula 2.00 12/13/16 14:48 104 20 104/55 (71) 94 Nasal Cannula 2.00 12/13/16 13:43 96 Nasal Cannula 2.00 I/O 10/25/17 12/13/16 12/13/16 12/14/16 12/14/16 12/14/16 07:00 15:00 23:00 07:00 15:00 23:00 Intake Total 240 ml Output Total 425 ml Balance -185 ml Intake Oral 240 ml Output Urine Total 425 ml # Bowel Movements 0 (Moni Gallo MD R2) Result Diagram: 12/14/16 0229 12/14/16 0229 Imaging Last Impressions Chest X-Ray 12/13/16 1108 Signed Impressions: Service Date/Time: Tuesday, December 13, 2016 11:20 - CONCLUSION: 1. Marked hyperinflation characteristic of significant COPD, unchanged. 2. No acute infiltrate or effusion. Demian Dela Cruz MD CT Angiography 12/13/16 0000 Signed Impressions: Service Date/Time: Tuesday, December 13, 2016 13:55 - CONCLUSION: 1. The study is negative for pulmonary embolism. 2. Irregular margin 1.2 cm left upper lobe lesion and 5 mm nodule right lung superimposed upon severe emphysema. No considerable performing outpatient PET/CT scan to evaluate for metabolic activity and to help in decision making regarding possible biopsy. Bill Bailon MD Objective Remarks GENERAL: Well-nourished, well-developed elderly male in no apparent distress. He is sitting comfortably in a chair. He is not confused today. SKIN: Warm and dry. No rashes or ecchymoses noted. Catheterization site in the right groin is clean, dry, intact. HEAD: Atraumatic. Normocephalic. EYES: Pupils equal and round. No scleral icterus. No injection or drainage. ENT: No nasal bleeding or discharge. Mucous membranes pink and moist. NECK: Trachea midline. No JVD. CARDIOVASCULAR: Regular rate and rhythm. No murmurs, gallops, or rubs on exam. No significant lower extremity edema. RESPIRATORY: No accessory muscle use. Clear to auscultation. Breath sounds equal bilaterally. Healing incision right lower abdomen from recent hernia repair. GASTROINTESTINAL: Abdomen soft, non-tender, nondistended. Normal bowel sounds. Hepatic and splenic margins not palpable. MUSCULOSKELETAL: Extremities without clubbing, cyanosis, or edema. No obvious deformities. NEUROLOGICAL: Awake and alert. No obvious cranial nerve deficits. Motor grossly within normal limits. Normal speech. PSYCHIATRIC: Appropriate mood and affect; insight and judgment normal. Procedures Cardiac catheterization 10/25/17 Medications and IVs Inpatient Medications Acetaminophen (Tylenol) 650 mg Q4H PRN PO TEMP > 100.4; Start 12/13/16 at 14: 30 Albuterol Sulfate (Albuterol Neb) 2.5 mg Q4HR NEB NEB Last administered on 12:23; Start 12/14/16 at 12:00 Albuterol Sulfate (Proair Hfa Inh) 2 puff QID INH ; Start 12/13/16 at 18:00; Stop 12/14/16 at 09:08; Status DC Aspirin (Aspirin Chew) 162 mg ONCE ONCE CHEW Last administered on 12/13/16 14:47; Start 12/13/16 at 12:45; Stop 12/13/16 at 12:46; Status DC Atorvastatin Calcium (Lipitor) 10 mg HS PO Last administered on 12/13/16 21: 09; Start 12/13/16 at 21:00 Bisacodyl (Dulcolax Supp) 10 mg DAILY PRN RECTAL SEVERE CONSITIPATION; Start 12/13/16 at 14:30 Budesonide/ Formoterol Fumarate (Symbicort 160-4.5 Inh) 2 puff Q12HR INH Last administered on 12/14/16 08:42; Start 12/13/16 at 21:00 Heparin Sodium (Porcine) (Heparin Inj) 4,000 units ONCE ONCE IV PUSH Last administered on 12/13/16 15:55; Start 12/13/16 at 15:30; Stop 12/13/16 at 15 :32; Status DC Heparin Sodium/ Dextrose 250 ml @ 7 mls/hr TITRATE PRN IV Coagulation management; Start 12/13/16 at 16:00 Hydrochlorothiazide (Hydrodiuril) 25 mg DAILY PO Last administered on 08:41; Start 12/14/16 at 09:00 Lactulose (Lactulose Liq) 30 ml DAILY PRN PO SEVERE CONSITIPATION Last administered on 12/14/16 08:41; Start 12/13/16 at 14:30 Lisinopril (Prinivil) 20 mg DAILY PO Last administered on 12/14/16 08:42; Start 12/14/16 at 09:00 Magnesium Hydroxide (Milk Of Magnesia Liq) 30 ml Q12H PRN PO Mild constipation ; Start 12/13/16 at 14:30 Morphine Sulfate (Morphine Inj) 2 mg Q30M PRN IV PUSH CHEST PAIN; Start at 14:30 Nitroglycerin (Nitrostat Sl) 0.4 mg Q5M PRN SL CHEST PAIN; Start 12/13/16 at 13:30 Non-Formulary Medication 1 tab DAILY PO ; Start 12/14/16 at 09:00; Stop at 09:00; Status DC Ondansetron HCl (Zofran Inj) 4 mg Q6H PRN IVP NAUSEA OR VOMITING; Start at 14:30 Pravastatin Sodium (Pravachol) 10 mg DAILY PO Last administered on 12/14/16 08:42; Start 12/14/16 at 09:00 Senna/Docusate Sodium (Reema-Colace) 1 tab BID PO Last administered on 08:42; Start 12/13/16 at 21:00 Sennosides (Senokot) 17.2 mg Q12H PRN PO Moderate constipation; Start at 14:30 Sodium Chloride (NS Flush) 2 ml BID IV FLUSH Last administered on 12/14/16 08 :42; Start 12/13/16 at 21:00 Tiotropium [place] (Spiriva Inh) 18 mcg DAILY INH Last administered on 08:42; Start 12/14/16 at 09:00 (Moni Gallo MD R2) Urinary Catheter: No (Moni Gallo MD R2) Vascular Central Line Catheter: No (Moni Gallo MD R2) A/P Assessment and Plan Mr. Jefferson is a 76yoWM with a PMH of multiple MIs and a CABG who presents with confusion, tachycardia, and shortness of breath. Upon admission to the ED his troponin was elevated at 1.23. He was admitted for atypical chest pain workup and was noted to have no evidence of PE on CTA. He was started on heparin drip in the ER taken to cardiac catheterization on the afternoon of 12/13/16. Discharge Planning Cardiac catheterization 12/13 showing no acute occlusions warranting intervention. He has patent stents. He has been cleared for discharge by cardiology. Physical therapy to evaluate and assist with discharge planning. His son is notably concerned about his safety at home if he is discharged with recommendations for independent care. (Moni Gallo MD R2) Attending Attestation Patient seen and examined. Case reviewed and discussed with the resident team. Agree with plan of care as discussed with me and documented in the resident note. (Melina Batres MD) Problem List: (1) ACS (acute coronary syndrome) ICD Codes: I24.9 - Acute ischemic heart disease, unspecified Status: Acute Plan: Patient's troponin at admission was 1.23. He is status post catheterization with noted patent coronary stents and stable occlusion. EF 60%. Normal wall motion. He does have CAD but with preserved left ventricular systolic function. He symptomatic has improved. * Serial enzymes continued to be elevated but to be expected, negative workup for ACS * Negative workup for PE given CTA negative for embolus * Continue with telemetry but will transfer to [facility] floor today Hospital Course: * He has a hx of multiple MIs without chest pain and had a CABG in 2011. Multiple coronary stents. * EKG done in ED showed sinus tachycardia with occasional supraventricular premature complexes. Possible right ventricular conduction delay. ST deviation and moderate T-wave abnormality, consider anterior ischemia. Abnormal. * CTA 12/13 negative for PE but did show multiple lung lesions: 1.2 cm left upper lobe lesion, 5 mm right mid lung nodule. Severe emphysema noted. 9 mm left lobe thyroid lesion noted. 1.5 mm mediastinal nodule as well. * Catheterization performed and as noted above * Heparin drip was discontinued post procedure * Patient to continue aspirin 81 mg daily, lisinopril 20 mg daily. He is not on a beta amanda at home but is on HCTZ 25 mg daily, will consider switching to beta amanda while inpatient for cardioprotection * Patient is also on a statin, will continue pravastatin at 10 mg daily. Lipid profile is normal, HDL noted to be 72 which is excellent (2) Multiple pulmonary nodules determined by computed tomography of lung ICD Codes: R91.8 - Other nonspecific abnormal finding of lung field Status: Acute Plan: CTA on 12/13 showed: "LUNGS: There is an irregular margin solid lesion in the upper medial left lung devoid of air bronchograms measuring 1.3 x 0.6 cm. There is severe centrilobular emphysema in the upper lobes. There is a nodule in the medial right midlung measuring 5 mm, best seen on image #42. MEDIASTINUM: In the retrocrural region on the right side, there is a 1.5 cm nodule, incompletely included in the field of view; can not exclude retrocrural adenopathy. Low density lesion in the left lobe of the thyroid measuring 9 mm" * Medical oncology initially consulted but recommended outpatient follow-up without inpatient consult * Patient is notified of nodules. Per patient request, son was also notified about nodules and the recommendation for outpatient follow-up. [facility] * It is noted that the nodules are incidental findings and not likely contributed to acute symptoms (3) COPD (chronic obstructive pulmonary disease) ICD Codes: J44.9 - Chronic obstructive pulmonary disease, unspecified Status: Chronic Plan: Pt with COPD chronic COPD. Has been having low O2 sats at home. On oxygen 2L at home. * Continue at home medications: Symbicort, Combivent, albuterol nebs * Continue 2L O2 via NC, goal O2 sat greater than 92% * Recommend incentive spirometer (4) Diabetes mellitus ICD Codes: E11.9 - Type 2 diabetes mellitus without complications Status: Chronic Plan: Patient is diet controlled at home. Fasting BSG this morning 87. Will add sliding scale NovoLog low-dose if indicated Heart healthy diet (5) Hypertension ICD Codes: I10 - Essential (primary) hypertension Status: Chronic Plan: * Continue at home medications as documented above (6) FEN Status: Acute Plan: Fluids: tolerating PO/NS @ 100ml/hr Electrolytes: monitor and replete as needed Nutrition: NPO DVT Prophylaxis: Lovenox 40mg subQ q24hr/bilateral SCDs GI Prophylaxis: None indicated (Moni Gallo MD R2) Moni Gallo MD R2 Dec 14, 2016 13:05 Melina Batres MD Dec 14, 2016 15:26
[2016-12-14] MEDS ORDERED: cloNIDine HCL 0.1 MG TAB PO PRN (14:00)
[2016-12-14] MEDS ORDERED: ENOXAPARIN SODIUM 40 MG/0.4 ML SYRINGE SQ SCH (14:00)
[2016-12-14] MEDS ORDERED: ASPIRIN 81 MG CHEW TAB CHEW ONE (14:00)
--- NOTE | 2016-12-14 14:39 | EKG ---
Date Performed: 12/13/2016 Time Performed: 11:09:58 PTAGE: 76 years EKG: SINUS TACHYCARDIA LOW QRS VOLTAGE IN PRECORDIAL LEADS RIGHT BUNDLE BRANCH BLOCK Nonspecific anterior T wave changes most likely secondary to the right bundle branch block but clinical correlat ion will be useful. Since the prior tracing the sinus tachycardia is new but there is no other signif icant serial change. ABNORMAL ECG PREVIOUS TRACING : 08/18/2016 21.04 DOCTOR: Lotus Reagan Interpretating Date/Time 12/14/2016 14:38:24
--- NOTE | 2016-12-14 14:39 | EKG ---
Date Performed: 12/13/2016 Time Performed: 18:03:36 PTAGE: 76 years EKG: Atrial fibrillation with a rapid ventricular response Right bundle branch block Low QRS vol tages in precordial leads Compared to previous tracing the atrial fibrillation is new Abnormal ECG PREVIOUS TRACING : 12/13/2016 11.09 DOCTOR: Lotus Reagan Interpretating Date/Time 12/14/2016 14:38:54
--- NOTE | 2016-12-14 14:40 | EKG ---
Date Performed: 12/14/2016 Time Performed: 02:04:22 PTAGE: 76 years EKG: Sinus rhythm Right bundle branch block Low QRS voltages in precordial leads Compared to previous tracing the atri al fibrillation has resolved and the patient is now in sinus rhythm Abnormal ECG PREVIOUS TRACING : 12/13/2016 18.03 DOCTOR: Lotus Reagan Interpretating Date/Time 12/14/2016 14:39:18
[2016-12-15] VITALS (7 sets, daily range): BP systolic 125–157; BP diastolic 70–84; PULSE 97–110; RESP 16–20; TEMP 97.5–98.4; O2SAT 79–98
[2016-12-15] MEDS: RESP: ALBUTEROL 2.5 MG/3 ML NEB (SCH) NEB ×5 (00:56→15:31)
--- NOTE | 2016-12-15 07:12 | HHI.FF ---
Face to Face Verification Diagnosis: (1) CAD (coronary artery disease) (2) COPD (chronic obstructive pulmonary disease) (3) Hx of CABG (4) ACS (acute coronary syndrome) Physical Therapy Order: Evaluate and Treat, Improve ambulation, Strength and gait training I have seen patient Josué Jefferson on 12/15/16. My clinical findings support the need for the requested home health care services because: Ltd mobility - disease progression Patient has SOB Deconditioned w/ increased weakness Limited ability to care for self I certify that my clinical findings support that this patient is homebound because: Post-op weakness Hx COPD- exertion dyspnea/weakness Unsteady gait/balance Unsafe to leave home unassisted Moni Gallo MD R2 Dec 15, 2016 07:12
[2016-12-15] MEDS: HYDROCHLOROTHIAZIDE 25 MG TAB PO SCH (08:41)
[2016-12-15] MEDS: BUDESONIDE-FORMOTEROL 160/4.5 MCG INHALER INH SCH (08:41)
[2016-12-15] MEDS: LISINOPRIL 20 MG TAB PO SCH (08:41)
[2016-12-15] MEDS: PRAVASTATIN SOD 10 MG TAB PO SCH (08:41)
[2016-12-15] MEDS: DOCUSATE SODIUM 50 MG/SENNA 8.6 MG TAB PO SCH (08:42)
[2016-12-15] MEDS: SODIUM CHLORIDE 0.9% FLUSH 10 ML FLUSH IV FLUSH SCH (08:42)
[2016-12-15] MEDS ORDERED: ASPIRIN 325 MG TAB PO SCH (09:00)
--- NOTE | 2016-12-15 09:26 | HHI.FPPN ---
Subjective Remarks Patient seen and examined this morning. He has no complaints and denies chest pain, headaches, blurry vision. Is having shortness of breath with exertion but this is chronic. No falls and reports going to bathroom with assistance. Son at bedside stating patient needs 24hr care and requests PT re-evaluation today. Patient prefers not to go to rehab but son takes 24-hr care of him at home per son's report. (Moni Gallo MD R2) Objective Vitals Vital Signs Date Time Temp Pulse Resp B/P (MAP) Pulse Ox O2 Delivery O2 Flow Rate FiO2 12/15/16 07:59 97 Nasal Cannula 2.00 12/15/16 04:00 98.1 104 16 157/79 (105) 79 12/15/16 00:30 98.1 97 16 125/75 (92) 98 12/14/16 22:27 99 Nasal Cannula 2.00 12/14/16 20:00 102 12/14/16 20:00 97.6 88 19 128/66 (86) 97 12/14/16 16:00 97.3 96 18 155/73 (100) 97 12/14/16 12:00 94 12/14/16 12:00 98.1 97 18 127/73 (91) 99 12/14/16 11:00 92 12/14/16 10:00 94 I/O 12/14/16 12/14/16 12/14/16 12/15/16 12/15/16 12/15/16 07:00 15:00 23:00 07:00 15:00 23:00 Intake Total 240 ml 240 ml Output Total 425 ml 550 ml 800 ml Balance -185 ml -310 ml -800 ml Intake Oral 240 ml 240 ml Output Urine Total 425 ml 550 ml 800 ml # Bowel Movements 0 (Moni Gallo MD R2) Result Diagram: 12/14/16 02212/14/16 022 Imaging Last Impressions Chest X-Ray 12/13/16 1108 Signed Impressions: Service Date/Time: Tuesday, December 13, 2016 11:20 - CONCLUSION: 1. Marked hyperinflation characteristic of significant COPD, unchanged. 2. No acute infiltrate or effusion. Demian Dela Cruz MD CT Angiography 12/13/16 0000 Signed Impressions: Service Date/Time: Tuesday, December 13, 2016 13:55 - CONCLUSION: 1. The study is negative for pulmonary embolism. 2. Irregular margin 1.2 cm left upper lobe lesion and 5 mm nodule right lung superimposed upon severe emphysema. No considerable performing outpatient PET/CT scan to evaluate for metabolic activity and to help in decision making regarding possible biopsy. Bill Bailon MD Objective Remarks GENERAL: Well-nourished, well-developed elderly male in no apparent distress. He is lying in bed comfortably. SKIN: Warm and dry. No rashes or ecchymoses noted. Catheterization site in the right groin is clean, dry, intact. HEAD: Atraumatic. Normocephalic. EYES: Pupils equal and round. No scleral icterus. No injection or drainage. ENT: No nasal bleeding or discharge. Mucous membranes pink and moist. NC in place 2L rate NECK: Trachea midline. No JVD. CARDIOVASCULAR: Regular rate and rhythm. No murmurs, gallops, or rubs on exam. No significant lower extremity edema. RESPIRATORY: No accessory muscle use. Clear to auscultation. Breath sounds equal bilaterally. Healing incision right lower abdomen from recent hernia repair. GASTROINTESTINAL: Abdomen soft, non-tender, nondistended. Normal bowel sounds. Hepatic and splenic margins not palpable. MUSCULOSKELETAL: Extremities without clubbing, cyanosis, or edema. No obvious deformities. NEUROLOGICAL: Awake and alert. No obvious cranial nerve deficits. Motor grossly within normal limits. He is weak in upper extremities with noted difficulty sitting up from 45 degree bed positioning. Normal speech. PSYCHIATRIC: Appropriate mood and affect; insight and judgment normal. Alert and oriented x 4. Procedures Cardiac catheterization 12/13/16 Medications and IVs Inpatient Medications Acetaminophen (Tylenol) 650 mg Q4H PRN PO TEMP > 100.4, PAIN 1-10; Start 12/13 at 14:30 Albuterol Sulfate (Albuterol Neb) 2.5 mg Q4HR NEB NEB Last administered on 07:58; Start 12/14/16 at 12:00 Albuterol Sulfate (Proair Hfa Inh) 2 puff QID INH ; Start 12/13/16 at 18:00; Stop 12/14/16 at 09:08; Status DC Aspirin (Aspirin Chew) 81 mg ONCE ONCE CHEW Last administered on 12/14/16 14 :19; Start 12/14/16 at 14:00; Stop 12/14/16 at 14:01; Status DC Aspirin (Aspirin) 81 mg DAILY PO Last administered on 12/15/16 08:42; Start 12/15/16 at 09:00 Atorvastatin Calcium (Lipitor) 10 mg HS PO Last administered on 12/13/16 21: 09; Start 12/13/16 at 21:00; Stop 12/14/16 at 13:00; Status DC Bisacodyl (Dulcolax Supp) 10 mg DAILY PRN RECTAL SEVERE CONSITIPATION; Start 12/13/16 at 14:30 Budesonide/ Formoterol Fumarate (Symbicort 160-4.5 Inh) 2 puff Q12HR INH Last administered on 12/15/16 08:41; Start 12/13/16 at 21:00 Clonidine (Catapres) 0.1 mg Q6H PRN PO SBP> OR = 180, DBP> OR = 100; Start at 14:00 Enoxaparin Sodium (Lovenox Inj) 40 mg Q24H SQ Last administered on 12/14/16 14:19; Start 12/14/16 at 14:00 Heparin Sodium (Porcine) (Heparin Inj) 4,000 units ONCE ONCE IV PUSH Last administered on 12/13/16 15:55; Start 12/13/16 at 15:30; Stop 12/14/16 at 13 :00; Status DC Heparin Sodium/ Dextrose 250 ml @ 7 mls/hr TITRATE PRN IV Coagulation management; Start 12/13/16 at 16:00; Stop 12/14/16 at 13:00; Status DC Hydrochlorothiazide (Hydrodiuril) 25 mg DAILY PO Last administered on 08:41; Start 12/14/16 at 09:00 Lactulose (Lactulose Liq) 30 ml DAILY PRN PO SEVERE CONSITIPATION Last administered on 12/14/16 08:41; Start 12/13/16 at 14:30 Lisinopril (Prinivil) 20 mg DAILY PO Last administered on 12/15/16 08:41; Start 12/14/16 at 09:00 Magnesium Hydroxide (Milk Of Magnesia Liq) 30 ml Q12H PRN PO Mild constipation ; Start 12/13/16 at 14:30 Morphine Sulfate (Morphine Inj) 2 mg Q30M PRN IV PUSH CHEST PAIN; Start at 14:30 Nitroglycerin (Nitrostat Sl) 0.4 mg Q5M PRN SL CHEST PAIN; Start 12/13/16 at 13:30 Non-Formulary Medication 1 tab DAILY PO ; Start 12/14/16 at 09:00; Stop at 09:00; Status DC Ondansetron HCl (Zofran Inj) 4 mg Q6H PRN IVP NAUSEA OR VOMITING; Start at 14:30 Pravastatin Sodium (Pravachol) 10 mg DAILY PO Last administered on 12/15/16 08:41; Start 12/14/16 at 09:00 Senna/Docusate Sodium (Reema-Colace) 1 tab BID PO Last administered on 08:42; Start 12/13/16 at 21:00 Sennosides (Senokot) 17.2 mg Q12H PRN PO Moderate constipation; Start at 14:30 Sodium Chloride (NS Flush) 2 ml BID IV FLUSH Last administered on 12/15/16 08 :42; Start 12/13/16 at 21:00 Tiotropium Meridian (Spiriva Inh) 18 mcg DAILY INH Last administered on 08:42; Start 12/14/16 at 09:00 (Moni Gallo MD R2) Urinary Catheter: No (Moni Gallo MD R2) Vascular Central Line Catheter: No (Moni Gallo MD R2) A/P Assessment and Plan Mr. Jefferson is a 76yoWM with a PMH of multiple MIs and a CABG who presents with confusion, tachycardia, and shortness of breath. Upon admission to the ED his troponin was elevated at 1.23. He was admitted for atypical chest pain workup and was noted to have no evidence of PE on CTA. He was started on heparin drip in the ER taken to cardiac catheterization on the afternoon of 12/13/16. Discharge Planning Cardiac catheterization 12/13 showing no acute occlusions warranting intervention. He has patent stents. He has been cleared for discharge by cardiology. Physical therapy to evaluate and assist with discharge planning, currently recommending rehab but son requesting re-evaluation. If re-evaluation notes home health PT again, he will be discharged with this. His son is notably concerned about his safety at home if he is discharged with recommendations for independent care. (Moni Gallo MD R2) Attending Attestation Patient seen and examined. Case reviewed and discussed with the resident team. Agree with plan of care as discussed with me and documented in the resident note. (Melina Batres MD) Problem List: (1) ACS (acute coronary syndrome) ICD Codes: I24.9 - Acute ischemic heart disease, unspecified Status: Acute Plan: Patient's troponin at admission was 1.23. He is status post catheterization with noted patent coronary stents and stable occlusion. EF 60%. Normal wall motion. He does have CAD but with preserved left ventricular systolic function. He symptomatic has improved. * Serial enzymes continued to be elevated but to be expected, negative workup for ACS * Negative workup for PE given CTA negative for embolus * Continue with telemetry but will transfer to [facility] floor today Hospital Course: * He has a hx of multiple MIs without chest pain and had a CABG in 2011. Multiple coronary stents. * EKG done in ED showed sinus tachycardia with occasional supraventricular premature complexes. Possible right ventricular conduction delay. ST deviation and moderate T-wave abnormality, consider anterior ischemia. Abnormal. * CTA 12/13 negative for PE but did show multiple lung lesions: 1.2 cm left upper lobe lesion, 5 mm right mid lung nodule. Severe emphysema noted. 9 mm left lobe thyroid lesion noted. 1.5 mm mediastinal nodule as well. * Catheterization performed and as noted above * Heparin drip was discontinued post procedure * Patient to continue aspirin 81 mg daily, lisinopril 20 mg daily. He is not on a beta amanda at home but is on HCTZ 25 mg daily, will consider switching to beta amanda while inpatient for cardioprotection * Patient is also on a statin, will continue pravastatin at 10 mg daily. Lipid profile is normal, HDL noted to be 72 which is excellent (2) Multiple pulmonary nodules determined by computed tomography of lung ICD Codes: R91.8 - Other nonspecific abnormal finding of lung field Status: Acute Plan: CTA on 12/13 showed: "LUNGS: There is an irregular margin solid lesion in the upper medial left lung devoid of air bronchograms measuring 1.3 x 0.6 cm. There is severe centrilobular emphysema in the upper lobes. There is a nodule in the medial right midlung measuring 5 mm, best seen on image #42. MEDIASTINUM: In the retrocrural region on the right side, there is a 1.5 cm nodule, incompletely included in the field of view; can not exclude retrocrural adenopathy. Low density lesion in the left lobe of the thyroid measuring 9 mm" * Medical oncology initially consulted but recommended outpatient follow-up without inpatient consult * Patient is notified of nodules. Per patient request, son was also notified about nodules and the recommendation for outpatient follow-up. [facility] * It is noted that the nodules are incidental findings and not likely contributed to acute symptoms (3) COPD (chronic obstructive pulmonary disease) ICD Codes: J44.9 - Chronic obstructive pulmonary disease, unspecified Status: Chronic Plan: Pt with COPD chronic COPD. Has been having low O2 sats at home. On oxygen 2L at home. * Continue at home medications: Symbicort, Combivent, albuterol nebs * Continue 2L O2 via NC, goal O2 sat greater than 92% * Recommend incentive spirometer (4) Diabetes mellitus ICD Codes: E11.9 - Type 2 diabetes mellitus without complications Status: Chronic Plan: Patient is diet controlled at home. Fasting BSG this morning 87. Will add sliding scale NovoLog low-dose if indicated Heart healthy diet (5) Hypertension ICD Codes: I10 - Essential (primary) hypertension Status: Chronic Plan: * Continue at home medications as documented above (6) FEN Status: Acute Plan: Fluids: tolerating PO/NS @ 100ml/hr Electrolytes: monitor and replete as needed Nutrition: NPO DVT Prophylaxis: Lovenox 40mg subQ q24hr/bilateral SCDs GI Prophylaxis: None indicated (Moni Gallo MD R2) Moni Gallo MD R2 Dec 15, 2016 09:26 Melina Batres MD Dec 15, 2016 12:56
[2016-12-15 09:28] LABS: AUTOMATED NEUTROPHIL # 4.8 TH/MM3 (1.8-7.7); BASOPHIL % 0.3 % (0.0-2.0); EOSINOPHIL # 0.3 TH/MM3 (0-0.4); EOSINOPHIL % 4.7 % (0.0-4.0); HEMATOCRIT 37.7 % (39.0-51.0); LYMPH % 18.4 % (9.0-44.0); LYMPHOCYTE # 1.3 TH/MM3 (1.0-4.8); MEAN CELL VOLUME 88.5 FL (80.0-100.0); MEAN CORPUSCULAR HEMOGLOBIN 29.8 PG (27.0-34.0); MEAN CORPUSCULAR HGB CONC 33.7 % (32.0-36.0); MONO % 8.4 % (0.0-8.0); NEUT % 68.2 % (16.0-70.0); PLATELET COUNT 209 TH/MM3 (150-450); RED BLOOD COUNT 4.26 MIL/MM3 (4.50-5.90); RED CELL DISTRIBUTION WIDTH 14.5 % (11.6-17.2)
[2016-12-15 09:32] LABS: HEMO FLAGS DIFF FINAL
[2016-12-15 10:00] LABS: BICARBONATE 29.8 MEQ/L (21.0-32.0); POTASSIUM 3.6 MEQ/L (3.5-5.1)
[2016-12-15] MEDS ORDERED: SYMB160A INH (12:53)
[2016-12-15] MEDS ORDERED: GUAI600T11 PO (12:53)
[2016-12-15] MEDS ORDERED: SIMV5TAB3 PO (12:53)
[2016-12-15] MEDS ORDERED: LISI20TA3 PO (12:53)
[2016-12-15] MEDS ORDERED: ASPI81CH CHEW (12:53)
[2016-12-15] MEDS ORDERED: ALBU0.08 NEB (12:53)
[2016-12-15] MEDS ORDERED: SENN1TAB PO (12:53)
[2016-12-15] MEDS ORDERED: IPRAAER INH (12:53)
[2016-12-15] MEDS: TIOTROPIUM BROMIDE 18 MCG INH INH SCH (12:58)
--- NOTE | 2016-12-15 13:16 | HHI.PR ---
Addendum to Inpatient Note Addendum Reason: Additional Documentation Additional Information Patient re-evaluated by PT and now recommending rehabilitation at SNF. Discussed with patient at bedside. [id number] signed and disease case manager rn working on placement. CM to be in contact with patient and his son regarding discharge planning. Moni Gallo MD R2 Dec 15, 2016 13:16
--- NOTE | 2016-12-15 21:12 | PD.CARD.PN ---
Subjective Subjective Remarks No CP, SOB, or dizziness Objective Vital Signs / I&O Vital Signs Date Time Temp Pulse Resp B/P (MAP) Pulse Ox O2 Delivery O2 Flow Rate FiO2 12/15/16 15:31 98 Nasal Cannula 2.00 12/15/16 12:00 97.5 110 20 130/70 (90) 97 12/15/16 10:16 100 12/15/16 08:00 98.4 104 20 149/84 (105) 95 12/15/16 07:59 97 Nasal Cannula 2.00 12/15/16 04:00 98.1 104 16 157/79 (105) 79 12/15/16 00:30 98.1 97 16 125/75 (92) 98 12/14/16 22:27 99 Nasal Cannula 2.00 I/O 12/14/16 12/14/16 12/14/16 12/15/16 12/15/16 12/15/16 07:00 15:00 23:00 07:00 15:00 23:00 Intake Total 240 ml 240 ml Output Total 425 ml 550 ml 800 ml Balance -185 ml -310 ml -800 ml Intake Oral 240 ml 240 ml Output Urine Total 425 ml 550 ml 800 ml # Bowel Movements 0 Physical Exam GENERAL: In NAD SKIN: Warm and dry. HEAD: Normocephalic. EYES: No scleral icterus. No injection or drainage. NECK: Supple, trachea midline. No JVD or lymphadenopathy. CARDIOVASCULAR: Irregular rate and rhythm, without murmurs, gallops, or rubs. RESPIRATORY: Breath sounds equal bilaterally. No accessory muscle use. GASTROINTESTINAL: Abdomen soft, non-tender, nondistended. MUSCULOSKELETAL: No cyanosis, or edema. Groin stable Laboratory Laboratory Tests Test 12/15/16 09:05 White Blood Count 7.0 TH/MM3 Red Blood Count 4.26 MIL/MM3 Hemoglobin 12.7 GM/DL Hematocrit 37.7 % Mean Corpuscular Volume 88.5 FL Mean Corpuscular Hemoglobin 29.8 PG Mean Corpuscular Hemoglobin Concent 33.7 % Red Cell Distribution Width 14.5 % Platelet Count 209 TH/MM3 Mean Platelet Volume 8.1 FL Neutrophils (%) (Auto) 68.2 % Lymphocytes (%) (Auto) 18.4 % Monocytes (%) (Auto) 8.4 % Eosinophils (%) (Auto) 4.7 % Basophils (%) (Auto) 0.3 % Neutrophils # (Auto) 4.8 TH/MM3 Lymphocytes # (Auto) 1.3 TH/MM3 Monocytes # (Auto) 0.6 TH/MM3 Eosinophils # (Auto) 0.3 TH/MM3 Basophils # (Auto) 0.0 TH/MM3 CBC Comment DIFF FINAL Differential Comment Blood Urea Nitrogen 12 MG/DL Creatinine 0.84 MG/DL Random Glucose 142 MG/DL Calcium Level 9.3 MG/DL Magnesium Level 2.0 MG/DL Sodium Level 137 MEQ/L Potassium Level 3.6 MEQ/L Chloride Level 98 MEQ/L Carbon Dioxide Level 29.8 MEQ/L Anion Gap 9 MEQ/L Estimat Glomerular Filtration Rate 89 ML/MIN Assessment and Plan Problem List: (1) CAD (coronary artery disease) ICD Codes: I25.10 - Atherosclerotic heart disease of [place] coronary artery without angina pectoris Status: Acute (2) Hx of CABG ICD Codes: Z95.1 - Presence of aortocoronary bypass graft (3) HTN (hypertension) ICD Codes: I10 - Essential (primary) hypertension Status: Acute (4) Atrial fibrillation ICD Codes: I48.91 - Unspecified atrial fibrillation (5) Diabetes mellitus ICD Codes: E11.9 - Type 2 diabetes mellitus without complications Status: Chronic (6) COPD (chronic obstructive pulmonary disease) ICD Codes: J44.9 - Chronic obstructive pulmonary disease, unspecified Status: Chronic Assessment and Plan Good progress, remains stable. Continue long-acting diltiazem for a fib rate control. I recommend nticoagulation with Xarelto 20 mg daily. Cath showed 3/3 grafts patent and nl LV fx. DC today. [facility]. Alan Franks MD Dec 15, 2016 21:12
--- NOTE | 2016-12-17 13:28 | HHI.DS ---
Discharge Summary Admission Date Dec 13, 2016 at 12:35 Discharge Date: Dec 15, 2016 Admitting Diagnosis NONSTEMI (1) ACS (acute coronary syndrome) Diagnosis: Principal Plan: Patient's troponin at admission was 1.23. He is status post catheterization with noted patent coronary stents and stable occlusion. EF 60%. Normal wall motion. He does have CAD but with preserved left ventricular systolic function. He symptomatic has improved. 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 Multiple coronary stents. * EKG done in ED showed sinus tachycardia with occasional supraventricular premature complexes. Possible right ventricular conduction delay. ST deviation and moderate T-wave abnormality, consider anterior ischemia. Abnormal. * CTA 12/13 negative for PE but did show multiple lung lesions: 1.2 cm left upper lobe lesion, 5 mm right mid lung nodule. Severe emphysema noted. 9 mm left lobe thyroid lesion noted. 1.5 mm mediastinal nodule as well. * Catheterization performed and as noted above * Heparin drip was discontinued post procedure * Patient to continue aspirin 81 mg daily, lisinopril 20 mg daily. He is not on a beta amanda at home but is on HCTZ 25 mg daily, will consider switching to beta amanda while inpatient for cardioprotection * Patient is also on a statin, will continue pravastatin at 10 mg daily. Lipid profile is normal, HDL noted to be 72 which is excellent ICD Codes: I24.9 - Acute ischemic heart disease, unspecified Status: Acute (2) Multiple pulmonary nodules determined by computed tomography of lung Diagnosis: Secondary Plan: CTA on 12/13 showed: "LUNGS: There is an irregular margin solid lesion in the upper medial left lung devoid of air bronchograms measuring 1.3 x 0.6 cm. There is severe centrilobular emphysema in the upper lobes. There is a nodule in the medial right midlung measuring 5 mm, best seen on image #42. MEDIASTINUM: In the retrocrural region on the right side, there is a 1.5 cm nodule, incompletely included in the field of view; can not exclude retrocrural adenopathy. Low density lesion in the left lobe of the thyroid measuring 9 mm" * Medical oncology initially consulted but recommended outpatient follow-up without inpatient consult * Patient is notified of nodules. Per patient request, son was also notified about nodules and the recommendation for outpatient follow-up. Records will be forwarded to the ID upon discharge * It is noted that the nodules are incidental findings and not likely contributed to acute symptoms ICD Codes: R91.8 - Other nonspecific abnormal finding of lung field Status: Acute (3) COPD (chronic obstructive pulmonary disease) Diagnosis: Secondary Plan: Pt with COPD chronic COPD. Has been having low O2 sats at home. On oxygen 2L at home. * Continue at home medications: Symbicort, Combivent, albuterol nebs * Continue 2L O2 via NC, goal O2 sat greater than 92% * Recommend incentive spirometer ICD Codes: J44.9 - Chronic obstructive pulmonary disease, unspecified Status: Chronic (4) Diabetes mellitus Diagnosis: Secondary Plan: Patient is diet controlled at home. Fasting BSG this morning 87. Will add sliding scale NovoLog low-dose if indicated Heart healthy diet ICD Codes: E11.9 - Type 2 diabetes mellitus without complications Status: Chronic (5) Hypertension Diagnosis: Secondary Plan: * Continue at home medications as documented above ICD Codes: I10 - Essential (primary) hypertension Status: Chronic Consultants Cardiology Procedures Cardiac catheterization 12/13/16 Brief History Mr. Pritchett is a 76-year-old male with a past medical history of multiple MIs, COPD, and hypertension presenting with shortness of breath and confusion. The son states that this started on Sunday, 2 days ago, after he had right inguinal hernia repair in [facility] the [facility]. He was immediately discharged after the procedure. When they got home the son noticed that his father was having a lot of confusion and "out of it". Over the course of the past 2 days he is more forgetful. He had also had increased heart rate to the 110 to 120s. Patient was also feeling warm and having chills. His thyroid checked his temperature which was afebrile. The patient also felt like "there was not enough air in the room. "His oxygen saturation went down to 70-80 % while he was on oxygen at home. The son also checked his blood pressure which she felt was low at 99/57. He also stated that he almost fainted several times. He felt dizzy and lightheaded. No chest pain, no shortness of breath, felt nauseous earlier today, but no vomiting. Has a chronic cough because of his COPD that is productive of clear sputum. The [facility] called the [facility] today who advised him to come to the hospital. CBC/BMP: 12/15/1690412/15/16904 Significant Findings Laboratory Tests Test 12/15/16 09:05 Red Blood Count 4.26 MIL/MM3 (4.50-5.90) Hemoglobin 12.7 GM/DL (13.0-17.0) Hematocrit 37.7 % (39.0-51.0) Monocytes (%) (Auto) 8.4 % (0.0-8.0) Eosinophils (%) (Auto) 4.7 % (0.0-4.0) Random Glucose 142 MG/DL (74-106) Imaging Last Impressions Chest X-Ray 12/13/16 1108 Signed Impressions: Service Date/Time: Tuesday, December 13, 2016 11:20 - CONCLUSION: 1. Marked hyperinflation characteristic of significant COPD, unchanged. 2. No acute infiltrate or effusion. Demian Dela Cruz MD CT Angiography 12/13/16 0000 Signed Impressions: Service Date/Time: Tuesday, December 13, 2016 13:55 - CONCLUSION: 1. The study is negative for pulmonary embolism. 2. Irregular margin 1.2 cm left upper lobe lesion and 5 mm nodule right lung superimposed upon severe emphysema. No considerable performing outpatient PET/CT scan to evaluate for metabolic activity and to help in decision making regarding possible biopsy. Bill Bailon MD PE at Discharge GENERAL: Well-nourished, well-developed elderly male in no apparent distress. He is lying in bed comfortably. SKIN: Warm and dry. No rashes or ecchymoses noted. Catheterization site in the right groin is clean, dry, intact. HEAD: Atraumatic. Normocephalic. EYES: Pupils equal and round. No scleral icterus. No injection or drainage. ENT: No nasal bleeding or discharge. Mucous membranes pink and moist. NC in place 2L rate NECK: Trachea midline. No JVD. CARDIOVASCULAR: Regular rate and rhythm. No murmurs, gallops, or rubs on exam. No significant lower extremity edema. RESPIRATORY: No accessory muscle use. Clear to auscultation. Breath sounds equal bilaterally. Healing incision right lower abdomen from recent hernia repair. GASTROINTESTINAL: Abdomen soft, non-tender, nondistended. Normal bowel sounds. Hepatic and splenic margins not palpable. MUSCULOSKELETAL: Extremities without clubbing, cyanosis, or edema. No obvious deformities. NEUROLOGICAL: Awake and alert. No obvious cranial nerve deficits. Motor grossly within normal limits. He is weak in upper extremities with noted difficulty sitting up from 45 degree bed positioning. Normal speech. PSYCHIATRIC: Appropriate mood and affect; insight and judgment normal. Alert and oriented x 4. Hospital Course Mr. Jefferson is a 76yoWM with a PMH of multiple MIs and a CABG who presents with confusion, tachycardia, and shortness of breath. Upon admission to the ED his troponin was elevated at 1.23. He was admitted for atypical chest pain workup and was noted to have no evidence of PE on CTA. He was started on heparin drip in the ER taken to cardiac catheterization on the afternoon of 12/13/16. Cardiac catheterization showed no acute occlusions warranting intervention. He has patent stents. He has been cleared for discharge by cardiology. Medical management as noted above. Physical therapy ordered to evaluate and assist with discharge planning. They initially recommended home health physical therapy but on reevaluation recommended inpatient rehabilitation. Inpatient rehabilitation was agreed upon by patient and patient's son and patient was discharged to rehabilitation center in stable condition. Pt Condition on Discharge: Stable Discharge Disposition: Discharge to SNF Discharge Instructions DIET: Follow Instructions for: Heart Healthy Diet Activities you can perform: Regular-No Restrictions Follow up Referrals: Cardiology - 2-3 Days with Alan Franks MD PCP Follow-up - 2-3 Days New Medications: Albuterol Neb (Albuterol Neb) 2.5 Mg/3 Ml Neb 2.5 MG NEB Q4HR NEB, #30 NEBULE Sennosides-Docusate Sodium (Senna Plus 8.6-50 mg) 8.6 Mg-50 Mg Tab 1 TAB PO BID, #60 TAB Changed Medications: Aspirin (Aspirin) 81 Mg Chew 81 MG CHEW DAILY, #30 TAB 0 Refills (Changed from: ONCE; 1) Continued Medications: Budesonide-Formoterol Inh (Symbicort Inh) 160-4.5 Mcg/Act Aero 2 PUFF INH Q12HR, #1 INHALER 0 Refills (This prescription has been renewed) Guaifenesin ER (Mucus Relief ER) 600 Mg Tab 1200 MG PO BID PRN for CHEST CONGESTION AND/OR COUGH, #30 TAB 0 Refills (This prescription has been renewed) Ipratropium-Albuterol Inh (Combivent Respimat Inh) 20-100 Care Home/Act Aero 1 PUFF INH QID for Asthma Management, #1 INHALER 0 Refills (This prescription has been renewed) Lisinopril-Hctz (Lisinopril-Hctz) 20-25 Mg Tab 1 TAB PO DAILY for Blood Pressure Management, #30 TAB 0 Refills (This prescription has been renewed) Simvastatin (Simvastatin) 5 Mg Tab 5 MG PO DAILY for Cholesterol Management, #30 TAB 0 Refills (This prescription has been renewed) Discontinued Medications: Albuterol 6.7 GM Inh (Proventil Hfa 6.7 GM Inh) 90 Mcg/Act Aer 2 PUFF INH Q4-6H PRN for SHORTNESS OF BREATH, #1 INHALER 0 Refills Hydrocodone-Acetaminophen (Hydrocodone-Acetaminophen) 10-325 mg Tab 1 TAB PO Q6H PRN for PAIN, TAB 0 Refills Moni Gallo MD R2 Dec 17, 2016 13:28
== END 2016-12-15 16:08 | DRG 282 ==
LOC: NEPE 11:03 → NEDA 12:35 → HCIN 18:13 → N04B 12-14 15:41
PROVIDERS: ADMIT Family Medicine; ATTEND Family Medicine
PROC: B2111ZZ Fluoroscopy of Multiple Coronary Arteries using Low Osmolar Contrast (ICD-10-PCS; 2016-12-13)
PROC: B2181ZZ Fluoroscopy of Left Internal Mammary Bypass Graft using Low Osmolar Contrast (ICD-10-PCS; 2016-12-13)
PROC: B2131ZZ Fluoroscopy of Multiple Coronary Artery Bypass Grafts using Low Osmolar Contrast (ICD-10-PCS; 2016-12-13)
PROC: B2151ZZ Fluoroscopy of Left Heart using Low Osmolar Contrast (ICD-10-PCS; 2016-12-13)
PROC: 4A023N7 Measurement of Cardiac Sampling and Pressure, Left Heart, Percutaneous Approach (ICD-10-PCS; principal; 2016-12-13 16:00)
DX: I21.4 Non-ST elevation (NSTEMI) myocardial infarction (principal); Z99.81 Dependence on supplemental oxygen; I48.91 Unspecified atrial fibrillation; J43.2 Centrilobular emphysema; E11.9 Type 2 diabetes mellitus without complications; I10 Essential (primary) hypertension; I25.10 Atherosclerotic heart disease of native coronary artery without angina pectoris; R91.1 Solitary pulmonary nodule; Z95.1 Presence of aortocoronary bypass graft; Z95.5 Presence of coronary angioplasty implant and graft; I25.2 Old myocardial infarction; Z87.891 Personal history of nicotine dependence
CPT/HCPCS: 71010; 71275; 80048; 80053; 80061; 82550; 82552; 83690; 83735; 83880; 84443; 84484; 85025; 85610; 85730; 93005; 93459; 94150; 94640; 94664; C1769; C1893; J1644; J1650; J2250; J3010; J7613; Q9967